=== PATIENT | female | born 1950 | race Caucasian/White ===

== ENCOUNTER 2016-09-11 15:59 | Emergency (ER) | payer MEDICARE, MEDICAID ==
[2016-03-23 07:55] VITALS: BMI 18.8
[~2016-09-11 15:59] MED LIST: ACETAMINOPHEN325 MG NG; AMARYL1 MG PO; ANTIVERT25 MG PO; ASPIRIN325 MG PO; ASPIRIN81 MG PO; BAYER CHEWABLE81 MG PO; BETAPACE 80 MG80 MG PO; BRILINTA90 MG PO; CARAFATE1 G/10 ML PO; COREG 3.1253.125 MG GT; COREG 3.1253.125 MG PO; GLIMEPIRIDE1 MG PO; GLUCOPHAGE500 MG PO; HYDROCODON-ACE1 EAC9 PO; HYDROCODONE-APA1 TAB PO; IPRAT-ALBUT 0.5-3 ML UPD; KLONOPIN0.5 MG; KLONOPIN0.5 MG PO; LIPITOR20 MG PO; LIPITOR40 MG PO; LYRICA75 MG PO; NICODERM C1 PATCH .2 TRANSDERM; NITROSTAT0.4 MG SL; NORCO 10/325 TA1 TA1 PO; NORVASC10 MG PO; PEPCID20 MG PO; PLAVIX75 MG PO; PREDNISONE20 MG PO; PRINIVIL10 MG PO; PRINIVIL20 MG PO; PROAIR HFA8.5 GM; PROAIR HFA8.5 GM INH; PROTONIX40 MG PO; SINGULAIR10 MG PO; SYMBICORT 16010.2 GM INH; VIBRAMYCIN50 MG/5 ML PO; WELCHOL3.75 GM; WELCHOL625 MG PO
[2016-09-11 16:58] LABS: BASOPHILS 0.7 % (0.0-2.0); EOSINOPHILS 2.9 % (0-7); HEMATOCRIT 37.7 % (36.0-48.0); HEMOGLOBIN 12.4 g/dL (12-16); LYMPHOCYTES 29.5 % (15-50); MCHC 32.9 g/dL (31.0-37.0); MCV 91.3 fL (80.0-100.0); MEAN PLATELET VOLUME 10.9 fL (7.4-10.4); MONOCYTES 5.2 % (2-11); NEUTROPHILS 61.7 % (40-80); PLATELET COUNT 171 10x3/uL (130-400); RBC 4.13 10x6/uL (4.00-5.40); RDW 12.1 % (11.5-14.5); WBC 5.6 10x3/uL (4.8-10.8)
[2016-09-11 17:29] LABS: ALBUMIN 3.9 g/dL (3.4-5.0); ANION GAP 14.3 mmol/L (8-16); BILIRUBIN - TOTAL 0.47 mg/dL (0.2-1.3); CALCIUM 9.3 mg/dL (8.5-10.1); CARBON DIOXIDE 29.1 mmol/L (21.0-32.0); CREATININE - SERUM 1.4 mg/dL (0.6-1.3); POTASSIUM - SERUM 4.4 mmol/L (3.5-5.1); PROTEIN - SERUM 6.3 g/dL (6.4-8.2)
== END 2016-09-11 19:10 | disposition home or self-care (01) ==
LOC: D.ER 15:59
PROVIDERS: Physician Assistant Medical
DX: R51 Headache (principal); I25.10 Atherosclerotic heart disease of native coronary artery without angina pectoris; J44.9 Chronic obstructive pulmonary disease, unspecified; Z86.73 Personal history of transient ischemic attack (TIA), and cerebral infarction without residual deficits

== ENCOUNTER 2016-12-14 10:05 | Outpatient (CLI) | payer MEDICARE, MEDICAID ==
[~2016-12-14] VITALS: Ht 165.1 cm; Wt 58.6 kg
--- NOTE | ~2016-12-14 | HEMODYNAMI ---
PATIENT:DAMEON JAIME MEDICAL RECORD: [id number] : 52 LOCATION:[facility] ADMISSION DATE: 12/14/16 Generatedon:12/14/201614:57 Patient name: DAMEON JAIME Patient #: [id number] SSN: D OB: 1950 Date of study: 12/14/2016 Page: Of Hemodynamic Procedure Report Patient Data Patient Demographics Procedure consent was obtained First Name: DAMEON Gender: Female Last Name: YENI : 1950 [facility] Initial: J Age: 66 year(s) Patient #: [id number] Race: Additional ID: [id number] Contact details Address: [address] [place] [address] [facility] State: [place] City: [place] Zip code: [address] Past Medical History Allergies Allergen Reaction Date Comments Reported Other allergy 04/05/2015 penicillins Penicillins 12/14/2016 Admission Admission Data Admission Date: 12/14/2016 Admission Time: 10:05 Height (in.): 65 BSA: 1.64 (m2) Height (cm.): 165.1 BMI: 21.47 (kg/m2) Weight (lbs.): 129 Weight (kg.): 58.51 Lab Results Lab Result Date: 12/14/2016 Lab Result Time: 0:00 Biochemistry Name Units Result Min Max Creatinine mg/dl 1.4 --(----)*- 0.6 1.3 CBC Name Units Result Min Max Hemoglobin g/dl 12.3 *-(----)-- 13.5 17.5 Procedure Procedure Types Cath Procedure Diagnostic Procedure [facility] w/Coronaries PCI Procedure Coronary Stent Initial Miscellaneous Procedures Moderate Sedation up to 30 minutes Procedure Description Procedure Date Procedure Date: 12/14/2016 Procedure Start Time: 14:43 Procedure End Time: 14:57 Procedure Staff Name Function Brendon Durbin MD Performing Physician Taurus Hussein RT Scrub Elvin Toney RT Scrub Benny Youssef RN Nurse Haley Ambriz RT Monitor Procedure Data Cath Procedure Fluoroscopy Diagnostic fluoroscopy Total fluoroscopy Time: 2.2 time: 2.2 min min Diagnostic fluoroscopy Total fluoroscopy dose: 388 dose: 388 mGy mGy Contrast Material Contrast Material Type Amount (ml) Isovue 300 82 Entry Location Entry Primary Successful Side Size Upsize Upsize Entry Closure Succes sful Closure Location (Fr) 1 (Fr) 2 (Fr) Remarks Device Remarks Femoral Right 6 Fr Exoseal artery Short Estimated blood loss: 10 ml Diagnostic catheters Device Type Used For End Catheter Placement Cordis 5Fr Pigtail LV Angiography Catheter (MP) Cordis 5Fr JL 4.0 Left Coronary Catheter (MP) Angiography Cordis 5Fr 3DRC Catheter Right Coronary (MP) Angiography Procedure Complications No complications Procedure Medications Medication Administration Route Dosage Oxygen NC 2 l/min Heparin Flush Bag added to field 2 bags (1000units/500ml NS) 0.9% NaCl I.V. 100 ml/hr Fentanyl I.V. 50 mcg Versed I.V. 1 mg Fentanyl I.V. 50 mcg Versed I.V. 1 mg Fentanyl I.V. 50 mcg Heparin Bolus I.V. 4000 units Fentanyl I.V. 50 mcg Plavix P.O. 75 mg Hemodynamics Rest BSA: 1.64 (m2) HGB: 12.3 (g/dl) O2 Consumption: Estimated: 156.22 (ml/min) O2 Co nsumption indexed: Estimated:95.26 (ml/min/m) Heart Rate: 75 (bpm) Snapshots Pre Cath Intra NCS Post Cath Vital Signs Time Heart Resp SPO2 etCO2 [id number] NIBP (mmHg) Rhythm Pain Sedation Rate (ipm) (%) (mmHg) (mmHg) Status Level (bpm) 14:23:54 76 16 97 0 0 143/68(87) NSR 0 (11) 10(A) , No pain 14:28:49 73 18 99 0 0 170/90(138) NSR 0 (11) 10(A) , No pain 14:33:09 76 19 100 0 0 165/87(130) NSR 0 (11) 10(A) , No pain 14:37:27 73 17 99 0 0 179/88(134) NSR 0 (11) 9(A) , No pain 14:41:43 74 19 100 0 0 145/83(118) NSR 0 (11) 9(A) , No pain 14:45:55 77 18 98 0 0 150/82(118) NSR 0 (11) 9(A) , No pain 14:50:03 84 18 97 0 0 133/87(108) NSR 0 (11) 9(A) , No pain 14:54:17 86 17 98 0 0 123/74(109) NSR 0 (11) 9(A) , No pain Medications Time Medication Route Dose Verified Delivered Reason Notes Effectiveness by by 14:22:57 Oxygen NC 2 Benny Benny Per physician l/min Mikael Youssef RN RN 14:23:07 Heparin Flush added 2 Benny Benny used for Bag to bags Mikael Youssef RN procedure (1000units/500ml field RN NS) 14:23:17 0.9% NaCl I.V. 100 Benny Benny Per physician ml/hr Mikael Youssef RN RN 14:34:12 Fentanyl I.V. 50 Benny Benny for sedation mcg Mikael Youssef RN RN 14:34:20 Versed I.V. 1 mg Benny Benny for sedation Mikael Youssef RN RN 14:40:27 Fentanyl I.V. 50 Benny Benny for sedation mcg Mikael Youssef RN RN 14:40:30 Versed I.V. 1 mg Benny Benny for sedation Mikael Youssef RN RN 14:43:22 Fentanyl I.V. 50 Benny Benny for sedation mcg Mikael Youssef RN RN 14:45:16 Fentanyl I.V. 50 Benny Benny for sedation mcg Mikael Youssef RN RN 14:49:16 Heparin Bolus I.V. 4000 Benny Benny for units Mikael Youssef RN anticoagulation RN 14:56:22 Plavix P.O. 75 mg Benny Benny for Mikael Youssef RN antiplatelet RN therapy Procedure Log Time Note 14:04:42 Benny Youssef RN sent for patient. Start room use. 14:13:12 Diagnostic Cath Status : Elective 14:14:43 Time tracking: Regular hours 14:14:47 Plan of Care:Hemodynamics will remain stable., Cardiac rhythm will remain stable., Comfort level will be maintained., Respiratory function will remain adequate., Patient/ family verbilizes understanding of procedure., Procedure tolerated without complication., Recovers from procedure without complications.. 14:16:35 Patient Height : 65 cm 14:16:38 Patient Weight : 129 kg 14:16:59 Patient received from Pre/Post Procedure Room to CCL 1 Alert and oriented. Tansferred to table in Supine position. 14:17:00 Warm blankets applied, and neto hugger turned on for patient comfort. 14:17:01 Correct patient and procedure confirmed by team. 14:17:02 Signed procedure consent form obtained from patient. 14:17:03 ECG and BP/O2 sat monitors applied to patient. 14:17:04 Full Disclosure recording started 14:22:35 Vital chart was started 14:22:57 Oxygen 2 l/min NC was administered by Benny Youssef RN; Per physician; 14:23:07 Heparin Flush Bag (1000units/500ml NS) 2 bags added to field was administered by Benny Youssef RN; used for procedure; 14:23:17 0.9% NaCl 100 ml/hr I.V. was administered by Benny Youssef RN; Per physician; 14:29:28 Rhythm: sinus rhythm 14:30:05 H&P Date Dictated: 12/13/2016 Within 30 days and on chart., H&P Addendum completed by physician on day of procedure. (MUST COMPLETE FOR ALL OUTPATIENTS). 14:30:07 Pre-procedure instructions explained to patient. 14:30:07 Pre-op teaching completed and patient verbalized understanding. 14:30:09 Family in waiting room. 14:30:11 Patient NPO since Midnight. 14:30:22 Patient allergic to Penicillins 14:30:24 Is the patient allergic to Iodine/contrast media? No. 14:30:26 Is patient on blood thinner?Yes 14:30:30 ACC The patient was administered the following blood thiners within the last 24 hours: ACCAspirin, ACCPlavix 14:30:32 Patient diabetic? Yes. 14:30:34 If diabetic: On Metformin? Yes 14:30:35 If on Metformin: Last Dose? 12/14/2016 14:30:39 Previous problem with sedation/anesthesia? No ? 14:30:41 Snore? Yes 14:30:42 Sleep apnea? No 14:30:43 Deviated septum? No 14:30:44 Opens mouth fully? Yes 14:30:44 Sticks out tongue? Yes 14:30:46 Airway obstruction? No ? 14:30:47 Dentures? No ? 14:30:50 Pre procedure: right dorsailis pedis pulse 1+ Palpable, but thready & weak; easily obliterated 14:30:54 Patient pain scale 0/10 ?. 14:31:00 IV patent on arrival in right forearm with 0.9% NaCl at [facility]. 14:31:03 Lab results completed and on chart. 14:31:07 Right groin area was prepped with chlora-prep and draped in sterile fashion 14:31:08 Alarms reviewed by R. N. 14:31:09 Sharps counted by scrub and verified by R.N. 14:31:17 Use device set Femoral Dx 14:31:18 Acist Syringe opened to sterile field. 14:31:18 Bag Decanter opened to sterile field. 14:31:19 Medline Cath Pack opened to sterile field. 14:31:19 Terumo 5Fr [place] Sheath opened to sterile field. 14:31:19 [facility] 260cm J .035 wire opened to sterile field. 14:31:21 Acist Hand Control opened to sterile field. 14:31:21 Acist Manifold opened to sterile field. 14:31:22 Diagnostic Infinity 5Fr Multipack catheter opened to sterile field. 14:31:23 Tegaderm 4 x 4 opened to sterile field. 14:34:03 Final Timeout: patient, procedure, and site verified with staff and physician. All members of the team are in agreement. 14:34:05 Right groin site verified by team. 14:34:08 Physical assessment completed. ASA score P 2 - A patient with mild systemic disease as per Brendon Durbin MD. 14:34:10 Sedation plan: IV Moderate Sedation Versed, Fentanyl 14:34:12 Fentanyl 50 mcg I.V. was administered by Benny Youssef RN; for sedation; 14:34:20 Versed 1 mg I.V. was administered by Benny Youssef RN; for sedation; 14:38:34 Zero performed for pressure channel P1 14:39:27 Lab Result : Hemoglobin 12.3 g/dl 14:39:27 Lab Result : Creatinine 1.4 mg/dl 14:39:41 Baseline sample Acquired. 14:40:27 Fentanyl 50 mcg I.V. was administered by Benny Youssef RN; for sedation; 14:40:30 Versed 1 mg I.V. was administered by Benny Youssef RN; for sedation; 14:43:22 Procedure started. 14:43:22 Fentanyl 50 mcg I.V. was administered by Benny Youssef RN; for sedation; 14:43:27 Local anesthetic to right femoral artery with Lidocaine 2% by Brendon Durbin MD.INITIAL ACCESS ONLY 14:44:10 A 6 Fr Short sheath was inserted into the Right Femoral artery 14:44:24 A Cordis 5Fr Pigtail Catheter (MP) was advanced over the wire and used for LV Angiography. 14:44:50 LV gram done using SHIPMAN 14:44:53 Injector settings: Ml/sec: 10, Volume: 20, 14:45:01 EF : 60 % 14:45:16 Fentanyl 50 mcg I.V. was administered by Benny Youssef RN; for sedation; 14:45:16 A Cordis 5Fr JL 4.0 Catheter (MP) was advanced over the wire and used for Left Coronary Angiography. 14:46:43 Catheter removed. 14:46:48 A Cordis 5Fr 3DRC Catheter (MP) was advanced over the wire and used for Right Coronary Angiography. 14:47:01 Puente Whisper J 300cm 0.014 guide wire opened to sterile field. 14:47:02 [employer] BasixCompak Inflation Kit opened to sterile field. 14:47:59 Catheter removed. 14:48:08 Cordis 6FR XBLAD 3.5 guide catheter opened to sterile field. 14:48:36 6 Fr XBLAD 3.5 guide catheter was inserted over the wire 14:49:16 Heparin Bolus 4000 units I.V. was administered by Benny Youssef RN; for anticoagulation; 14:50:53 Inflation Number: 1 A Medtronic Resolute 3.0 X 12 stent was prepped and advanced across the Prox LAD. The stent was deployed at 13 HALEY for 0:09 (min:sec). 14:51:04 Inflation number: 2 The stent balloon was then re-inflated across the Prox LAD to 13 HALEY for 0:06 (min:sec). 14:51:31 Stent catheter was removed intact over wire. 14:51:32 Wire removed. 14:51:32 Guide catheter removed. 14:51:39 Sheath removed intact; hemostasis achieved with Exoseal to the Right Femoral artery. 14:51:45 Cordis 6Fr Exoseal opened to sterile field. 14:51:47 Procedure ended.(Physican Out) 14:52:20 Fluoroscopy time 02.20 minutes. 14:52:24 Fluoroscopy dose: 388 mGy 14:52:24 Flurop Dose total: 388 14:52:28 Contrast amount:Isovue 300 82ml. 14:52:29 Sharps counted by scrub and verified by R.N. 14:52:30 Insertion/operative site no bleeding no hematoma. 14:52:35 Post-op/insertion site Right Femoral artery dressed using a 4 x 4 and Tegaderm. 14:52:38 Post right femoral artery:stable, clean and dry 14:52:40 Post Procedure Pulses reassessed and unchanged 14:52:42 Post-procedure physical assessment completed. ASA score P 2 - A patient with mild systemic disease as per Brendon Durbin MD. 14:52:46 Post procedure rhythm: unchanged. 14:52:48 Estimated blood loss: 10 ml 14:52:50 Post procedure instruction explained to patient.Patient verbalizes understanding. 14:52:50 Patient needs reinforcement of post procedure teaching. 14:53:11 Procedure type changed to Cath procedure, Diagnostic procedure, LHC, LHC w/Coronaries, PCI procedure, Coronary Stent Initial, Miscellaneous Procedures, Moderate Sedation up to 30 minutes 14:53:17 Procedure Complication : No complications 14:53:20 See physician's report for complete and final results. 14:56:11 Procedure and supply charges have been captured, reviewed, submitted and are correct. 14:56:22 Plavix 75 mg P.O. was administered by Benny Youssef RN; for antiplatelet therapy; 14:57:04 Vital chart was stopped 14:57:06 Report given to Pre/Post Procedure Room. 14:57:09 Patient transfered to Pre/Post Procedure Room with Stretcher. 14:57:18 Procedure ended. 14:57:18 Full Disclosure recording stopped 14:57:21 End room use (Document Last) Intervention Summary Intervention Notes Time ActionType Lesion and Equipment Action# Pressure Duration Attributes Used 14:50:53 Place stent Prox LAD Medtronic 1 13 00:09 Resolute 3.0 X 12 stent 14:51:04 Reinflate Prox LAD Medtronic 2 13 00:07 stent Resolute balloon 3.0 X 12 stent Device Usage Item Name Manufacture Quantity Catalog Hospital Part Current Minimal Lot# / Number Charge Number Stock Stock Serial# Code Acist Acist 1 87299 [id number] 257776 361506 20 Syringe Medical Systems Inc Bag Microtek 1 2002S 232901 42469 448448 5 Decanter [employer] Inc. Medline Cardinal 1 [id number] 593596 74352 543514 5 Cath Pack Health Terumo 5Fr Terumo 1 [id number] 113827 839816 011889 [address] [place] [address] [facility] 1 201990 513485 097537 444682 30 260cm J .035 wire Acist Hand Acist 1 21495 919409 217686 250572 5 Control Medical Systems Inc Acist Acist 1 58065 773467 737031 767917 5 Manifold Medical Systems Inc Diagnostic Cardinal 1 [id number] 054502 17809 161623 30 Haivisionity Health 5Fr Multipack catheter Tegaderm 4 3M 1 1626W 293774 723996 679878 5 x 4 Cordis 5Fr Cardinal 1 092484 5 Pigtail Health Catheter (MP) Cordis 5Fr Cardinal 1 557846 5 JL 4.0 Health Catheter (MP) Cordis 5Fr Cardinal 1 967681 5 3DRC Health Catheter (MP) [place] 1 [id number] 078304 086435 760504 5 Whisper J Vascular 300cm 0.014 guide wire Merit Merit 1 AA3943 051456 733683 922541 15 [facility] Medical Inflation Kit Cordis 6FR Cardinal 1 [id number] 038753 019981 673108 10 XBLAD 3.5 Health guide catheter Medtronic Medtronic 1 [id number] 802279 750657 6 [id number] Resolute 3.0 X 12 stent Cordis 6Fr Cardinal 1 EX600 991934 779272 989669 10 [employer]Point Global Signature Audit [place] Stage Time Signature Unsigned Intra-Procedure 12/14/2016 Haley 2:57:31 PM Counts RT(R) Signatures Monitor : Haley Signature : Counts RT Date : Time : [facility] [address] [place] [address]
--- NOTE | ~2016-12-14 | OP ---
PATIENT NAME: DAMEON JAIME MEDICAL RECORD: [id number] :52 LOCATION:D.CAT ADMISSION DATE: SURGEON: ANGEL DO MD DATE OF OPERATION: 12/14/2016 PROCEDURES: 1. PTCA stent LAD. 2. Left heart catheterization. 3. Selective coronary angiography. 4. Left ventriculogram. INDICATION: Angina and coronary artery disease. PROCEDURE: After informed consent was obtained and after detailed explanation of risks, benefits as well as alternative therapies, the patient elected to proceed with angiogram and angioplasty. The right femoral area was prepped and draped in normal sterile fashion. The right femoral artery was cannulated via modified Seldinger technique with placement of 6-[place] sheath. All catheters exchanged through this sheath. FINDINGS: The left ventriculogram was performed in standard 30-degree SHIPMAN view, reveals good cardiac wall motion throughout all segments. Overall ejection fraction estimated at 60%. SELECTIVE CORONARY ANGIOGRAPHY: 1. Left main is with no significant angiographic disease. 2. Left anterior descending has previously placed stents, these are widely patent. However, there is a new 70-80% stenosis proximal to the previously placed stents. 3. Left circumflex has previously placed stents, these are widely patent with no significant restenosis. 4. Right coronary has previously placed stents, these are widely patent with no significant restenosis. PTCA STENT OF THE LAD: The stent used is a 3.0 x 12 mm Resolute. Result was 0% residual stenosis. OVERALL IMPRESSION: Successful percutaneous transluminal coronary angioplasty stent of the left anterior descending going from 70-80% initial stenosis to 0% residual stenosis. TRANSINT:[id number] Voice Confirmation ID: [id number] DOCUMENT ID: [id number] ANGEL DO MD CC: [id number] DICTATION DATE: 12/14/16 1456 KITCHEN FOOD ASSEMBLER: 12/14/16 2321 DEP CLI 12/14/16 [address] [place] [address]
[2016-12-14 11:32] VITALS: Ht 165.1 cm; Wt 58.6 kg
[2016-12-14 11:36] LABS: BASOPHILS 0.7 % (0-2); EOSINOPHILS 4.3 % (0-7); HEMATOCRIT 36.3 % (36.0-48.0); HEMOGLOBIN 12.3 g/dL (12-16); IMMATURE GRANULOCYTES 0.2 % (0-5); LYMPHOCYTES 36.6 % (15-50); MCH 30.9 pg (26.0-34.0); MCHC 33.9 g/dL (31.0-37.0); MCV 91.2 fL (80.0-100.0); MEAN PLATELET VOLUME 11.4 fL (7.4-10.4); MONOCYTES 7.9 % (2-11); NEUTROPHILS 50.3 % (40-80); PLATELET COUNT 151 10x3/uL (130-400); RBC 3.98 10x6/uL (4.00-5.40); RDW 12.7 % (11.5-14.5); WBC 4.5 10x3/uL (4.8-10.8)
[2016-12-14] MEDS ORDERED: PROTONIX40 MG PO (11:47)
[2016-12-14] MEDS ORDERED: PROPAFENONE HC150 MG PO (11:52)
[2016-12-14] MEDS ORDERED: MOBIC7.5 MG PO (11:52)
[2016-12-14 12:10] LABS: ANION GAP 11.7 mmol/L (8-16); CALCIUM 9.2 mg/dL (8.5-10.1); CARBON DIOXIDE 27.8 mmol/L (21.0-32.0); CREATININE - SERUM 1.4 mg/dL (0.6-1.3); POTASSIUM - SERUM 4.5 mmol/L (3.5-5.1)
--- NOTE | 2016-12-14 15:30 | NUR ---
RIGHT GROIN CDI, NO HEMATOMA OR BLEEDING NOTED, SOFT TO TOUCH
--- NOTE | 2016-12-14 16:00 | NUR ---
NO CHANGE IN RIGHT GROIN
--- NOTE | 2016-12-14 18:50 | NUR ---
IV D'C WITH CATH TIP INTACT, WRITTEN AND VERBAL INSTRUCTIONS GIVEN TO PT. RIGHT GROIN - CDI, NO HEMATOMA OR BLEEDING. AWAITING FRIEND FOR RIDE HOME. DENIES PAIN.
== END 2016-12-14 19:05 | disposition home or self-care (01) ==
LOC: D.CATH 10:05
PROVIDERS: Internal Medicine Interventional Cardiology
DX: I25.119 Atherosclerotic heart disease of native coronary artery with unspecified angina pectoris (principal); I48.0 Paroxysmal atrial fibrillation; I10 Essential (primary) hypertension; Z01.812 Encounter for preprocedural laboratory examination
CPT/HCPCS: 93458; C9600

== ENCOUNTER 2017-06-08 20:03 | Emergency (ER) | payer MEDICARE, MEDICAID ==
[2016-12-14 11:32] VITALS: BMI 21.5
[~2017-06-08 20:03] MED LIST changes: +MOBIC7.5 MG PO; +PROPAFENONE HC150 MG PO
[2017-06-08 21:04] LABS: BASOPHILS 0.8 % (0-2); EOSINOPHILS 3.2 % (0-7); HEMATOCRIT 36.5 % (36.0-48.0); HEMOGLOBIN 12.2 g/dL (12-16); IMMATURE GRANULOCYTES 0.2 % (0-5); LYMPHOCYTES 32.5 % (15-50); MCHC 33.4 g/dL (31.0-37.0); MCV 92.9 fL (80.0-100.0); MEAN PLATELET VOLUME 10.9 fL (7.4-10.4); MONOCYTES 7.4 % (2-11); NEUTROPHILS 55.9 % (40-80); PLATELET COUNT 221 10x3/uL (130-400); RBC 3.93 10x6/uL (4.00-5.40); RDW 12.6 % (11.5-14.5); WBC 5.3 10x3/uL (4.8-10.8)
[2017-06-08 21:11] LABS: INR 1.09 (0.85-1.17)
[2017-06-08 21:19] LABS: ALBUMIN 3.9 g/dL (3.4-5.0); ALKALINE PHOSPHATASE 48 U/L (46-116); ALT (SGPT) 25 U/L (10-68); BILIRUBIN - TOTAL 0.33 mg/dL (0.2-1.3); CALC OSMOLALITY 287 mosm/kg (275-300); CALCIUM 9.2 mg/dL (8.5-10.1); CARBON DIOXIDE 28.7 mmol/L (21.0-32.0); CHLORIDE - SERUM 106 mmol/L (98-107); CREATININE - SERUM 1.7 mg/dL (0.6-1.3); GLUCOSE 118 mg/dL (74-106); POTASSIUM - SERUM 5.4 mmol/L (3.5-5.1); PROTEIN - SERUM 6.7 g/dL (6.4-8.2); SODIUM 142 mmol/L (136-145); UREA NITROGEN 25 mg/dL (7-18); eGFR NON AFRICAN AMERICAN 32 mL/min (90-120)
[2017-06-08 21:21] LABS: TROPONIN-I < 0.017 ng/mL (0.000-0.060)
[2017-06-08 22:32] LABS: UDS - AMPHET NEGATIVE QUAL (NEGATIVE); UDS - BARB NEGATIVE QUAL (NEGATIVE); UDS - BENZO NEGATIVE QUAL (NEGATIVE); UDS - COCAINE NEGATIVE QUAL (NEGATIVE); UDS - OPIATE NEGATIVE QUAL (NEGATIVE); UDS - PCP NEGATIVE QUAL (NEGATIVE); UDS - THC NEGATIVE QUAL (NEGATIVE)
[2017-06-08 23:02] LABS: APPEARANCE CLEAR (CLEAR); BILIRUBIN NEGATIVE (NEGATIVE); COLOR YELLOW (YELLOW); GLUCOSE NEGATIVE (NEGATIVE); KETONE NEGATIVE (NEGATIVE); NITRITE NEGATIVE (NEGATIVE); PROTEIN NEGATIVE (NEGATIVE); UROBILINOGEN NORMAL (NORMAL)
== END 2017-06-08 23:52 | disposition home or self-care (01) ==
LOC: D.ER 20:03
PROVIDERS: Nurse Practitioner Family
DX: R42 Dizziness and giddiness (principal); G62.9 Polyneuropathy, unspecified; E11.9 Type 2 diabetes mellitus without complications; J44.9 Chronic obstructive pulmonary disease, unspecified; Z86.73 Personal history of transient ischemic attack (TIA), and cerebral infarction without residual deficits

== ENCOUNTER 2017-09-24 09:00 | Outpatient (CLI) | payer MEDICARE, MEDICAID ==
[~2017-09-24] VITALS: Ht 165.1 cm; Wt 56.9 kg
--- NOTE | ~2017-09-24 | DS ---
PATIENT:DAMEON JAIME :52 MEDICAL RECORD: [id number] DISCHARGE SUMMARY ADMISSION DATE: 09/24/17 DISCHARGE DATE: 09/25/17 DATE OF DISCHARGE: 09/25/2017 PROCEDURES: 1. Unstable angina. 2. Coronary artery disease. 3. PTCA stent left circumflex and RCA this admission. HOSPITAL COURSE: Ms. Jaime presents with anginal symptomatology, found to have significant disease of the left circumflex and RCA, underwent successful PTCA stent of above territories, had an uneventful postop course. She was discharged home with the addition of aspirin and Plavix to her medical regimen. Will follow up with [facility] in 1 month. TRANSINT:[id number] Voice Confirmation ID: [id number] DOCUMENT ID: [id number] ANGEL DO MD at 1202 CC: [id number] DICTATION DATE: 09/25/17 1037 REGISTERED MIDWIFE: 09/25/17 1320 DEP CLI 09/25/17 [id number] [place] [address]
--- NOTE | ~2017-09-24 | HEMODYNAMI ---
PATIENT:DAMEON JAIME MEDICAL RECORD: [id number] : 52 [id number] ADMISSION DATE: 09/24/17 Generatedon:09/25/201710:34 Patient name: DAMEON JAIME Patient #: [id number] SSN: [id number] : 1950 Date of study: 09/25/2017 Page: Of Hemodynamic Procedure Report Patient Data Patient Demographics Procedure consent was obtained First Name: DAMEON Gender: Female Last Name: YENI : 1950 [facility] Initial: J Age: 67 year(s) Patient #: [id number] Race: SSN: [id number] Additional ID: [id number] Contact details Address: [address] [place] [address] [facility] State: [place] City: [place] Zip code: [address] Past Medical History Allergies Allergen Reaction Date Comments Reported Other allergy 04/05/2015 penicillins Penicillins 12/14/2016 Penicillins 09/24/2017 Admission Admission Data Admission Date: 09/24/2017 Admission Time: 9:00 Arrival Date: 09/17/2017 Arrival Time: 9:30 Admit Source: Other Insurance Payor: Medicare Room #: D.2114 Height (in.): 64 BSA: 1.6 (m2) Height (cm.): 162.56 BMI: 21.28 (kg/m2) Weight (lbs.): 124 Weight (kg.): 56.25 Procedure Procedure Types Cath Procedure PCI Procedure Coronary Stent Coronary Stent Initial Procedure Description Procedure Date Procedure Date: 09/25/2017 Procedure Start Time: 10:22 Procedure End Time: 10:32 Procedure Staff Name Function Brendon Durbin MD Performing Physician Leyda Canales RT Monitor Bernard Hyde RN Nurse Anali Gaspar RT Scrub Procedure Data Cath Procedure Fluoroscopy Diagnostic fluoroscopy Total fluoroscopy Time: 3.3 time: 3.3 min min Diagnostic fluoroscopy Total fluoroscopy dose: 186 dose: 186 mGy mGy Contrast Material Contrast Material Type Amount (ml) Isovue 300 46 Entry Location Entry Primary Successful Side Size Upsize Upsize Entry Closure Succes sful Closure Location (Fr) 1 (Fr) 2 (Fr) Remarks Device Remarks Femoral Left 6 Fr Exoseal artery Short Estimated blood loss: 10 ml Procedure Complications No complications Procedure Medications Medication Administration Route Dosage Oxygen NC 2 l/min Lidocaine 2% added to field 20 Heparin Flush Bag added to field 2 bags (1000units/500ml NS) 0.9% NaCl I.V. 100 ml/hr Versed I.V. 1 mg Fentanyl I.V. 50 mcg Versed I.V. 1 mg Fentanyl I.V. 50 mcg Heparin Bolus I.V. 4000 units Versed I.V. 1 mg Fentanyl I.V. 50 mcg Hemodynamics Rest BSA: 1.6 (m2) O2 Consumption: Estimated: 165.62 (ml/min) O2 Consumption indexed: Estimated:103.51 (ml/min/m) Heart Rate: 97 (bpm) Snapshots Pre Cath Intra NCS Post Cath Vital Signs Time Heart Resp SPO2 etCO2 NIBP (mmHg) Rhythm Pain Sedation Rate (ipm) (%) (mmHg) Status Level (bpm) 10:06:36 72 17 99 0 121/65(80) NSR 0 (11) 10(A) , No pain 10:10:42 70 18 95 48.3 115/78(102) NSR 0 (11) 10(A) , No pain 10:15:45 70 16 100 22.6 110/76(104) NSR 0 (11) 10(A) , No pain 10:20:42 70 15 99 30.2 108/79(101) NSR 0 (11) 9(A) , No pain 10:24:48 77 15 94 0 111/65(92) NSR 0 (11) 9(A) , No pain 10:28:54 84 14 95 30.2 108/64(89) NSR 0 (11) 9(A) , No pain 10:33:42 80 15 99 35.4 94/61(83) NSR 0 (11) 10(A) , No pain Medications Time Medication Route Dose Verified Delivered Reason Notes Effectiveness by by 10:09:00 Oxygen NC 2 Brendon Wagner used for l/min 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 100 Brendonesteban Wagner Per physician ml/hr Gifty Hyde RN 10:17:45 Versed I.V. 1 mg Brendon Buffie for sedation Gifty Hyde RN 10:17:52 Fentanyl I.V. 50 Brendon Buffie for sedation mcg Gifty Hyde RN 10:21:14 Versed I.V. 1 mg Brendon Buffie for sedation Gifty Hyde RN 10:21:17 Fentanyl I.V. 50 Brendon Cappsie for sedation mcg Gitfy Hyde RN 10:24:28 Heparin Bolus I.V. 4000 Brendon Cappsie for verifi ed units Gifty Hyde RN anticoagulation with dr durbin 10:26:37 Versed I.V. 1 mg Brendon Buffie for sedation Gifty Hyde RN 10:26:40 Fentanyl I.V. 50 Brendon Buffie for sedation mcg Gifty Hyde RN Procedure Log Time Note 9:45:31 Patient Height : 64 inches 9:45:31 Patient Weight : 124 lbs 9:45:40 Admit Source: Other 9:45:43 Diagnostic Cath status Elective 9:45:45 Bernard Hyde RN sent for patient. Start room use. 9:45:46 Time tracking: Regular hours 9:45:51 Plan of Care:Hemodynamics will remain stable., Cardiac rhythm will remain stable., Comfort level will be maintained., Respiratory function will remain adequate., Patient/ family verbilizes understanding of procedure., Procedure tolerated without complication., Recovers from procedure without complications.. 9:55:38 Patient received from Med II to CCL 2 Alert and oriented. Tansferred to table in Supine position. 9:55:40 Warm blankets applied, and neto hugger turned on for patient comfort. 9:55:40 Correct patient and procedure confirmed by team. 9:55:42 Signed procedure consent form obtained from patient. 9:55:43 ECG and BP/O2 sat monitors applied to patient. 9:55:50 H&P Date Dictated: 09/24/2017 Within 30 days and on chart.. 9:55:51 Pre-procedure instructions explained to patient. 9:55:57 Is the patient allergic to Iodine/contrast media? No. 9:55:59 Was the patient premedicated? Yes 9:56:01 Is patient on blood thinner?Yes 9:56:05 ACC The patient was administered the following blood thiners within the last 24 hours: ACCPlavix 9:56:13 Patient diabetic? No. 9:56:18 Snore? Yes 9:56:20 Sleep apnea? No 9:56:31 Dentures? No ? 10:05:13 Vital chart was started 10:05:14 Baseline sample Acquired. 10:05:19 Rhythm: sinus rhythm 10:05:21 Full Disclosure recording started 10:05:26 Family in waiting room. 10:05:28 Patient NPO since Midnight. 10:05:36 Patient pain scale 0/10 ?. 10:05:41 IV patent on arrival in left forearm with 0.9% NaCl at [facility]. 10:05:49 Lab results completed and on chart. 10:05:55 Left groin area was prepped with chlora-prep and draped in sterile fashion 10:05:56 Alarms reviewed by R. N. 10:05:57 Sharps counted by scrub and verified by R.N. 10:09:00 Oxygen 2 l/min NC was administered by Bernard Hyde RN; used for procedure; 10:09:06 Lidocaine 2% 20ml vial added to field was administered by Brendon Durbin MD; for local anesthetic; 10:09:12 Heparin Flush Bag (1000units/500ml NS) 2 bags added to field was administered by Brendon Durbin MD; used for procedure; 10:09:20 0.9% NaCl 100 ml/hr I.V. was administered by Bernard Hyde RN; Per physician; 10:16:25 Zero performed for pressure channel P1 10:16:43 Physician paged 10:16:44 Physician arrived 10:16:46 --------ALL STOP TIME OUT------ 10:16:47 Final Timeout: patient, procedure, and site verified with staff and physician. All members of the team are in agreement. 10:16:50 Left groin site verified by team. 10:16:53 Physical assessment completed. ASA score P 2 - A patient with mild systemic disease as per Brendon Durbin MD. 10:16:58 Sedation plan: IV Moderate Sedation Medication:Versed, Fentanyl 10:17:45 Versed 1 mg I.V. was administered by Bernard Hyde RN; for sedation; 10:17:52 Fentanyl 50 mcg I.V. was administered by Bernard Hyde RN; for sedation; 10:21:14 Versed 1 mg I.V. was administered by Bernard Hyde RN; for sedation; 10:21:17 Fentanyl 50 mcg I.V. was administered by Bernard Hyde RN; for sedation; 10:22:04 Procedure started. 10:22:14 Local anesthetic to left femerol artery with Lidocaine 2% by Brendon Durbin MD.INITIAL ACCESS ONLY 10:22:27 A 6 Fr Short sheath was inserted into the Left Femoral artery 10:23:17 6 Fr AR1 guide catheter was inserted over the wire 10:24:15 Use device set Femoral Dx 10:24:17 GUIDE 6FR AR 1.0 catheter ([id number]) opened to sterile field. 10:24:18 INFLATOR Merit BasixCompak ([id number]) opened to sterile field. 10:24:19 CHOICE PT Extra Support 182cm wire ([id number]) opened to sterile field. 10:24:20 SHEATH 6FR [place] (PHL487) opened to sterile field. 10:24:20 ACIST Syringe (03528) opened to sterile field. 10:24:21 Bag Decanter (2002S) opened to sterile field. 10:24:22 Medline Cath Pack ([id number]) opened to sterile field. 10:24:24 DIAGNOSTIC WIRE .035 260cm J wire (250473) opened to sterile field. 10:24:25 ACIST Hand Control (61554) opened to sterile field. 10:24:26 ACIST Manifold (90442) opened to sterile field. 10:24:27 DIAGNOSTIC Multipack 5Fr catheter set ([id number]) opened to sterile field. 10:24:28 Heparin Bolus 4000 units I.V. was administered by Bernard Hyde RN; for anticoagulation; verified with dr durbin 10:24:28 Tegaderm 4 x 4 (1626W) opened to sterile field. 10:24:31 PERCUTANEOUS ENTRY 19GA needle opened to sterile field. 10:24:46 Choice extra wire advanced. 10:24:49 Wire advanced across lesion. 10:26:37 Versed 1 mg I.V. was administered by Bernard Hyde RN; for sedation; 10::40 Fentanyl 50 mcg I.V. was administered by Bernard Hyde RN; for sedation; 10::33 Inflation Number: 1 A JOSE ANTONIO RX 2.5 x 08 stent ([id number]) was prepped and advanced across the Dist RCA. The stent was deployed at 13 HALEY for 0:10 (min:sec). 10::44 Wire removed. 10::44 Guide catheter removed. 10:28:53 EXOSEAL 6Fr (EX600) opened to sterile field. 10:30:21 Sheath removed intact; hemostasis achieved with Exoseal to the Left Femoral artery. 10:30:24 Procedure ended.(Physican Out) 10:30:35 Fluoroscopy time 03.30 minutes. 10:30:39 Fluoroscopy dose: 186 mGy 10:30:39 Flurop Dose total: 186 10:30:49 Contrast amount:Isovue 300 46ml. 10:30:50 Sharps counted by scrub and verified by R.N. 10:30:51 Insertion/operative site no bleeding no hematoma. 10:30:55 Post-op/insertion site Left Femoral artery dressed using a 4 x 4 and Tegaderm. 10:30:57 Post Procedure Pulses reassessed and unchanged 10:31:01 Post-procedure physical assessment completed. ASA score P 2 - A patient with mild systemic disease as per Brendon Durbin MD. 10:31:04 Post procedure rhythm: unchanged. 10:31:07 Estimated blood loss: 10 ml 10:31:08 Post procedure instruction explained to patient.Patient verbalizes understanding. 10:31:16 Procedure type changed to Cath procedure, PCI procedure, Coronary Stent, Coronary Stent Initial 10::18 Procedure and supply charges have been captured, reviewed, submitted and are correct. 10:31:36 Procedure Complication : No complications 10::39 Vital chart was stopped 10::40 See physician's report for complete and final results. 10:31:41 Report given to Pre/Post Procedure Room. 10:32:18 Patient transfered to Pre/Post Procedure Room with Stretcher. 10:32:20 Procedure ended. 10:32:20 Full Disclosure recording stopped 10:32:24 End room use (Document Last) Intervention Summary Intervention Notes Time ActionType Lesion and Equipment Used Action# Pressure Duration Attributes 10:28:33 Place stent Dist RCA JOSE ANTONIO RX 2.5 x 1 13 00:10 08 stent ([id number]) Device Usage Item Name Manufacture Quantity Catalog Number Hospital Part Current M inimal Lot# / Charge Number Stock Stock Serial# Code GUIDE 6FR AR Medtronic 1 [id number] 82768 282987 1 1.0 catheter ([id number]) INFLATOR Merit Merit 1 AT8601 073073 981950 588451 1 5 PURE H20 B[employer] (RR8657) CHOICE PT [place] 1 [id number] 649437 195035 843332 5 Extra Support Scientific 182cm wire ([id number]) SHEATH 6FR Terumo 1 [id number] 263376 335719 935849 4 0 [place] (SKQ744) ACIST Syringe Acist 1 97949 673024 117303 221534 2 0 (85381) Medical Systems Inc Bag Decanter Microtek 1 2001S 675261 57464 329128 5 (2002S) Medical Inc. Medline Cath Cardinal 1 [id number] 666179 58367 004275 5 Pack Health ([id number]) DIAGNOSTIC [place] 1 511407 247685 678557 620959 3 0 WIRE .035 260cm J wire (050874) ACIST Hand Acist 1 27589 028742 151716 639572 5 Control Medical (74394) Systems Inc ACIST Manifold Acist 1 12480 825731 029989 031476 5 (09065) Medical Systems Inc DIAGNOSTIC Cardinal 1 ST1400 591138 64351 276045 3 0 Multipack 5Fr Health catheter set (ME6689) Tegaderm 4 x 4 3M 1 1626W 497631 877123 988471 5 (1626W) PERCUTANEOUS Cook Medical 1 B09013 973967 620949 5 ENTRY 19GA needle JOSE ANTONIO RX 2.5 x Medtronic 1 [id number] 825555 7628644 817743 5 [id number] 08 stent ([id number]) EXOSEAL 6Fr Cardinal 1 EX600 146761 426838 356783 1 0 (EX600) Health Signature Audit [place] Stage Time Signature Unsigned Intra-Procedure 09/25/2017 Leyda Canales 10:34:52 AM RT(R) Signatures Monitor : Leyda Canales Signature : RT Date : Time : [address]
--- NOTE | ~2017-09-24 | HEMODYNAMI ---
PATIENT:DAMEON JAIME MEDICAL RECORD: [id number] : 52 LOCATION:DTEGAN ADMISSION DATE: 09/24/17 Generatedon:09/24/201711:31 Patient name: DAMEON JAIME Patient #: [id number] SSN: [id number] : 1950 Date of study: 09/24/2017 Page: Of Hemodynamic Procedure Report Patient Data Patient Demographics Procedure consent was obtained First Name: DAMEON Gender: Female Last Name: YENI : 1950 [facility] Initial: Dariusz Age: 67 year(s) Patient #: [id number] Race: SSN: [id number] Additional ID: [id number] Contact details Address: [address] [place] [address] [facility] State: [place] City: [place] Zip code: [address] Past Medical History Allergies Allergen Reaction Date Comments Reported Other allergy 04/05/2015 penicillins Penicillins 12/14/2016 Penicillins 09/24/2017 Admission Admission Data Admission Date: 09/24/2017 Admission Time: 9:00 Arrival Date: 09/17/2017 Arrival Time: 9:30 Admit Source: Other Insurance Payor: Medicare Height (in.): 64 BSA: 1.6 (m2) Height (cm.): 162.56 BMI: 21.28 (kg/m2) Weight (lbs.): 124 Weight (kg.): 56.25 Procedure Procedure Types Cath Procedure Diagnostic Procedure LHC LHC w/Coronaries Sedation Charges Moderate Sedation up to 15 minutes PCI Procedure Coronary Stent Coronary Stent Initial Procedure Description Procedure Date Procedure Date: 09/24/2017 Procedure Start Time: 11:15 Procedure End Time: 11:31 Procedure Staff Name Function Brendon Durbin MD Performing Physician Haley Ambriz RT Monitor Benny Youssef RN Nurse Sandy Suarez RT Scrub Procedure Data Cath Procedure Fluoroscopy Diagnostic fluoroscopy Total fluoroscopy Time: 1.9 time: 1.9 min min Diagnostic fluoroscopy Total fluoroscopy dose: 333 dose: 333 mGy mGy Contrast Material Contrast Material Type Amount (ml) Isovue 300 64 Entry Location Entry Primary Successful Side Size Upsize Upsize Entry Closure Succes sful Closure Location (Fr) 1 (Fr) 2 (Fr) Remarks Device Remarks Femoral Right 5 Fr 6 Fr Exoseal artery Short Estimated blood loss: 10 ml Diagnostic catheters Device Type Used For End Catheter Placement MULTIPACK Pigtail 5 Fr LV Angiography catheter MULTIPACK JL 4.0 5Fr Left Coronary catheter Angiography MULTIPACK 3DRC 5Fr Right Coronary catheter Angiography Procedure Complications No complications Procedure Medications Medication Administration Route Dosage Oxygen NC 2 l/min Heparin Flush Bag added to field 2 bags (1000units/500ml NS) 0.9% NaCl I.V. 100 ml/hr Fentanyl I.V. 50 mcg Versed I.V. 1 mg Fentanyl I.V. 50 mcg Versed I.V. 1 mg Fentanyl I.V. 50 mcg Heparin Bolus I.V. 4000 units Hemodynamics Rest BSA: 1.6 (m2) O2 Consumption: Estimated: 147.91 (ml/min) O2 Consumption indexed: Estimated:92.44 (ml/min/m) Heart Rate: 68 (bpm) Snapshots Pre Cath Intra NCS Post Cath Vital Signs Time Heart Resp SPO2 etCO2 NIBP (mmHg) Rhythm Pain Sedation Rate (ipm) (%) (mmHg) Status Level (bpm) 11:07:19 73 16 96 0 154/82(116) NSR 0 (11) 10(A) , No pain 11:12:00 66 16 95 0 138/72(98) NSR 0 (11) 9(A) , No pain 11:16:38 66 16 98 22.7 105/72(89) NSR 0 (11) 9(A) , No pain 11:21:12 69 16 97 39.3 102/64(87) NSR 0 (11) 9(A) , No pain 11:25:47 74 16 98 35.6 112/65(99) NSR 0 (11) 9(A) , No pain Medications Time Medication Route Dose Verified Delivered Reason Notes Effectiveness by by 11:09:11 Oxygen NC 2 Brendon Zapata Per physician l/min Gifty Youssef RN 11:09:22 Heparin Flush added 2 Brendon Zapata used for Bag to bags Gifty Youssef fish header (1000units/500ml field NS) 11:09:42 0.9% NaCl I.V. 100 Brendon Zapata Per physician ml/hr Gifty Youssef RN 11:09:57 Fentanyl I.V. 50 Brendon Zapata for sedation mcg Gifty Youssef RN 11:10:24 Versed I.V. 1 mg Brendon Zapata for sedation Gifty Youssef RN 11:13:03 Fentanyl I.V. 50 Brendon Zapata for sedation mcg Gifty Youssef RN 11:13:06 Versed I.V. 1 mg Brendon Zapata for sedation Gifty Youssef RN 11:16:28 Fentanyl I.V. 50 Brendon Zapata for sedation dejon Youssef RN 11:22:22 Heparin Bolus I.V. 4000 Brendon Zapata for units Gifty Youssef RN anticoagulation Procedure Log Time Note 10:29:07 Patient Height : 64 inches 10:29:07 Patient Weight : 124 lbs 10:41:15 Haley Counts RT(R) sent for patient. Start room use. 10:51:16 Time tracking: Regular hours 10:51:19 Plan of Care:Hemodynamics will remain stable., Cardiac rhythm will remain stable., Comfort level will be maintained., Respiratory function will remain adequate., Patient/ family verbilizes understanding of procedure., Procedure tolerated without complication., Recovers from procedure without complications.. 10:56:14 Patient received from Pre/Post Procedure Room to CCL 1 Alert and oriented. Tansferred to table in Supine position. 10:56:15 Warm blankets applied, and neto hugger turned on for patient comfort. 10:56:15 Correct patient and procedure confirmed by team. 10:56:16 Signed procedure consent form obtained from patient. 10:56:18 ECG and BP/O2 sat monitors applied to patient. 11:06:26 Vital chart was started 11:06:29 Rhythm: sinus rhythm 11:06:30 Full Disclosure recording started 11:06:39 H&P Date Dictated: 09/11/2017 Within 30 days and on chart., H&P Addendum completed by physician on day of procedure. (MUST COMPLETE FOR ALL OUTPATIENTS). 11:06:41 Pre-procedure instructions explained to patient. 11:06:41 Pre-op teaching completed and patient verbalized understanding. 11:06:42 Family in waiting room. 11:06:44 Patient NPO since Midnight. 11:06:52 Patient allergic to Penicillins 11:06:54 Is the patient allergic to Iodine/contrast media? No. 11:06:55 Is patient on blood thinner?Yes 11:06:57 Patient diabetic? No. 11:07:01 Previous problem with sedation/anesthesia? No ? 11:07:02 Snore? Yes 11:07:03 Sleep apnea? No 11:07:04 Deviated septum? No 11:07:04 Opens mouth fully? Yes 11:07:05 Sticks out tongue? Yes 11:07:07 Airway obstruction? No ? 11:07:09 Dentures? No ? 11:07:11 Pre procedure: right dorsailis pedis pulse 2+ Normal; easily identifiable; not easily obliterated 11:07:17 Patient pain scale 7/10 Lt shoulder radiating to mid chest. 11:07:39 IV patent on arrival in left hand with 0.9% NaCl at [facility]. 11:07:42 Lab results completed and on chart. 11:07:44 Right groin area was prepped with chlora-prep and draped in sterile fashion 11:07:45 Alarms reviewed by R. N. 11:07:45 Sharps counted by scrub and verified by R.N. 11:07:49 Use device set Femoral Dx 11:07:50 ACIST Syringe (55594) opened to sterile field. 11:07:51 Bag Decanter (2002S) opened to sterile field. 11:07:51 Medline Cath Pack ([id number]) opened to sterile field. 11:07:51 SHEATH 5FR [place] (EYS492) opened to sterile field. 11:07:52 DIAGNOSTIC WIRE .035 260cm J wire (167955) opened to sterile field. 11:07:53 ACIST Hand Control (30064) opened to sterile field. 11:07:53 ACIST Manifold (33150) opened to sterile field. 11:07:53 DIAGNOSTIC Multipack 5Fr catheter set ([id number]) opened to sterile field. 11:07:54 Tegaderm 4 x 4 (1626W) opened to sterile field. 11:07:55 PERCUTANEOUS ENTRY 19GA needle opened to sterile field. 11:09:11 Oxygen 2 l/min NC was administered by Benny Youssef RN; Per physician; 11:09:22 Heparin Flush Bag (1000units/500ml NS) 2 bags added to field was administered by Benny Youssef RN; used for procedure; 11::42 0.9% NaCl 100 ml/hr I.V. was administered by Benny Youssef RN; Per physician; 11:09:56 Final Timeout: patient, procedure, and site verified with staff and physician. All members of the team are in agreement. 11::57 Fentanyl 50 mcg I.V. was administered by Benny Youssef RN; for sedation; 11::58 Right groin site verified by team. 11:10:01 Physical assessment completed. ASA score P 2 - A patient with mild systemic disease as per Brendon Durbin MD. 11:10:05 Sedation plan: IV Moderate Sedation Medication:Versed, Fentanyl 11:10:24 Versed 1 mg I.V. was administered by Benny Youssef RN; for sedation; 11:12:27 Baseline sample Acquired. 11:12:58 Zero performed for pressure channel P1 11:13:03 Fentanyl 50 mcg I.V. was administered by Benny Youssef RN; for sedation; 11:13:06 Versed 1 mg I.V. was administered by Benny Youssef RN; for sedation; 11:15:40 Procedure started. 11:15:43 Local anesthetic to right femoral artery with Lidocaine 2% by Brendon Durbin MD.INITIAL ACCESS ONLY 11:16:25 A 5 Fr sheath was inserted into the Right Femoral artery 11:16:28 Fentanyl 50 mcg I.V. was administered by Benny Youssef RN; for sedation; 11:17:03 A MULTIPACK Pigtail 5 Fr catheter was advanced over the wire and used for LV Angiography. 11:17:24 Injector settings: Ml/sec: 5, Volume: 15, 11:17:27 LV gram done using SHIPMAN 11:17:32 EF : 60 % 11:17:33 Catheter removed. 11:19:26 A MULTIPACK JL 4.0 5Fr catheter was advanced over the wire and used for Left Coronary Angiography. 11:19:29 Catheter removed. 11:19:36 A MULTIPACK 3DRC 5Fr catheter was advanced over the wire and used for Right Coronary Angiography. 11:19:43 Use device set [facility] PCI 11:19:44 INFLATOR Merit BasixCompak (ER5434) opened to sterile field. 11:19:45 SHEATH 6FR [place] (XMT239) opened to sterile field. 11:19:49 CHOICE PT Extra Support 182cm wire ([id number]) opened to sterile field. 11:20:01 Catheter removed. 11:20:57 Sheath upsized to a 6 Fr Short. 11:21:38 6 Fr XBLAD 3.5 guide catheter was inserted over the wire 11:22:08 Choice PT ES wire advanced. 11:22:22 Heparin Bolus 4000 units I.V. was administered by Benny Youssef RN; for anticoagulation; 11:22:40 GUIDE 6FR XBLAD 3.5 catheter ([id number]) opened to sterile field. 11:23:22 Inflation Number: 1 A JOSE ANTONIO RX 2.25 x 15 stent ([id number]) was prepped and advanced across the Dist CX. The stent was deployed at 15 HALEY for 0:07 (min:sec). 11:23:32 Inflation number: 2 The stent balloon was then re-inflated across the Dist CX to 19 HALEY for 0:07 (min:sec). 11:23:52 Stent catheter was removed intact over wire. 11:23:53 Wire removed. 11:23:53 Guide catheter removed. 11:24:06 Sheath removed intact; hemostasis achieved with Exoseal to the Right Femoral artery. 11:24:09 Procedure ended.(Physican Out) 11:24:37 Fluoroscopy time 01.90 minutes. 11:24:51 Flurop Dose total: 333 11:24:51 Fluoroscopy dose: 333 mGy 11:24:55 Contrast amount:Isovue 300 64ml. 11:26:55 Sharps counted by scrub and verified by R.N. 11:26:57 Insertion/operative site no bleeding no hematoma. 11:26:59 Post-op/insertion site Right Femoral artery dressed using a 4 x 4 and Tegaderm. 11:27:03 Post right femoral artery:stable, clean and dry 11:27:10 Post Procedure Pulses reassessed and unchanged 11:27:14 Post-procedure physical assessment completed. ASA score P 2 - A patient with mild systemic disease as per Brendon Durbin MD. 11:27:16 Post procedure rhythm: unchanged. 11::19 Estimated blood loss: 10 ml 11:27:20 Post procedure instruction explained to patient.Patient verbalizes understanding. 11:27:20 Patient needs reinforcement of post procedure teaching. 11:27:50 Procedure type changed to Cath procedure, Diagnostic procedure, LHC, LHC w/Coronaries, Sedation Charges, Moderate Sedation up to 15 minutes, PCI procedure, Coronary Stent, Coronary Stent Initial 11:28:13 See physician's report for complete and final results. 11:28:19 Procedure Complication : No complications 11:28:30 EXOSEAL 6Fr (EX600) opened to sterile field. 11:29:28 Procedure and supply charges have been captured, reviewed, submitted and are correct. 11:29:29 Vital chart was stopped 11::31 Report given to Pre/Post Procedure Room. 11::34 Patient transfered to Pre/Post Procedure Room with Stretcher. 11:31:25 Procedure ended. 11:31:25 Full Disclosure recording stopped 11::27 End room use (Document Last) Intervention Summary Intervention Notes Time ActionType Lesion and Equipment Used Action# Pressure Duration Attributes 11:23:22 Place stent Dist CX JOSE ANTONIO RX 2.25 x 1 15 00:07 15 stent ([id number]) 11:23:32 Reinflate Dist CX JOSE ANTONIO RX 2.25 x 2 19 00:08 stent 15 stent balloon ([id number]) Device Usage Item Name Manufacture Quantity Catalog Number Hospital Part Current M inimal Lot# / Charge Number Stock Stock Serial# Code ACIST Syringe Acist 1 74090 [id number] 545554 897621 2 0 (60033) Medical Systems Inc Bag Decanter Microtek 1 776754 46807 214068 5 () Medical Inc. Medline Cath Cardinal 1 [id number] 220898 02290 584238 5 [facility] ([id number]) SHEATH 5FR Terumo 1 GBX332 389120 001003 566052 4 0 [place] (NFO857) DIAGNOSTIC [facility] 1 535881 269782 909678 070457 3 0 WIRE .035 260cm J wire (196711) ACIST Hand Acist 1 67643 756407 135548 362371 5 Control Medical (63738) Systems Inc ACIST Manifold Acist 1 33915 749858 962796 855251 5 (72614) Medical Systems Inc DIAGNOSTIC Cardinal 1 WX7144 121219 59900 500195 3 0 Multipack 5Fr Health catheter set ([id number]) Tegaderm 4 x 4 3M 1 1626W 653348 342150 671789 5 (1626W) PERCUTANEOUS Cook Medical 1 Z59867 745817 565510 5 ENTRY 19GA needle MULTIPACK Cardinal 1 697793 5 Pigtail 5 Fr Health catheter MULTIPACK JL Cardinal 1 325051 5 4.0 5Fr Health catheter MULTIPACK 3DRC Cardinal 1 366892 5 5Fr catheter Health INFLATOR Merit Merit 1 UJ2551 718840 588787 117864 1 5 [employer] (UA0001) SHEATH 6FR Terumo 1 TPA426 391913 236730 341595 4 0 [place] (GAB712) CHOICE PT Whiting 1 [id number] 611137 205461 781735 5 Extra Support Scientific 182cm wire ([id number]) GUIDE 6FR Cardinal 1 [id number] 917728 438146 630029 1 0 XBLAD 3.5 Health catheter ([id number]) JOSE ANTONIO RX 2.25 x Medtronic 1 [id number] 368842 8517815 786601 5 [id number] 15 stent ([id number]) EXOSEAL 6Fr Cardinal 1 EX600 499530 749456 296688 1 0 (EX600) Health Signature Audit [place] Stage Time Signature Unsigned Intra-Procedure 09/24/2017 Haley 11:31:36 AM Counts RT(R) Signatures Monitor : Haley Signature : Counts RT Date : Time : [facility] [address] [facility] [place] [address]
--- NOTE | ~2017-09-24 | OP ---
PATIENT NAME: DAMEON JAIME MEDICAL RECORD: [id number] :52 LOCATION:EL GriffithsCL ADMISSION DATE: SURGEON: ANGEL DO MD DATE OF OPERATION: 09/24/2017 PROCEDURES: 1. PTCA stent left circumflex. 2. Left heart catheterization. 3. Selective coronary angiography. 4. Left ventriculogram. INDICATION: Angina and coronary artery disease. PROCEDURE IN DETAIL: After informed consent was obtained and after a detailed explanation of the risks, benefits as well as alternative therapies, the patient elected to proceed with angiogram and angioplasty. The right femoral area was prepped and draped in normal sterile fashion. The right femoral artery was cannulated via modified Seldinger technique with placement of 6-Prydeinig sheath. All catheters exchanged through this sheath. FINDINGS: The left ventriculogram was performed in standard 30-degree SHIPMAN view reveals, good cardiac wall motion throughout all segments. Overall ejection fraction estimated 60%. SELECTIVE CORONARY ANGIOGRAPHY: 1. Left main is with no significant angiographic disease. 2. Left anterior descending has previously placed stents in the LAD and LAD diagonal. These are widely patent with no significant restenosis. No disease elsewise. 3. The left circumflex has previously placed stents with 85% in-stent restenosis distally. 4. The right coronary artery has previously placed stents. These are widely patent with no significant restenosis. However, there is a new 80% stenosis in the mid distal vessel. PTCA STENT OF THE LEFT CIRCUMFLEX: The stent used was a 2.25 x 15 mm [place]. The result was 0% residual stenosis. OVERALL IMPRESSION: Successful percutaneous transluminal coronary angioplasty stent of the left circumflex going from 85% initial stenosis to 0% residual. PLAN: PTCA stent of the RCA in the near future. TRANSINT:[id number] Voice Confirmation ID: [id number] DOCUMENT ID: [id number] ANGEL DO MD at 1118 CC: [id number] DICTATION DATE: 09/24/17 1129 BUNCHER HAND: 09/24/17 1139 REG [facility] [address] [place] [address]
--- NOTE | ~2017-09-24 | OP ---
PATIENT NAME: DAMEON JAIME MEDICAL RECORD: [id number] :52 LOCATION:D.CAT ADMISSION DATE: SURGEON: ANGEL DO MD DATE OF OPERATION: 09/25/2017 PROCEDURES: 1. PTCA stent RCA. 2. Selective coronary angiography. INDICATION: Angina and coronary artery disease. PROCEDURE IN DETAIL: After informed consent was obtained and after detailed explanation of risks, benefits as well as alternative therapies, the patient elected to proceed with angiogram and angioplasty. The left femoral area was prepped and draped in normal sterile fashion. Left femoral artery was cannulated via modified Seldinger technique with placement of 6-[place]izen [place] sheath. All catheters exchanged through this sheath. FINDINGS: The right coronary artery has 80% stenosis in the mid distal vessel. This was addressed with a 2.5 x 8 mm [place] stent. Result was 0% residual stenosis. OVERALL IMPRESSION: Successful percutaneous transluminal coronary angioplasty stent of the right coronary artery going from 80% initial stenosis to 0% residual. TRANSINT:[id number] Voice Confirmation ID: [id number] DOCUMENT ID: [id number] ANGEL DO MD at 1202 CC: [id number] DICTATION DATE: 09/25/17 1038 NARCOTICS AND/OR VICE DETECTIVE: 09/25/17 1112 [facility] CLI 09/25/[address] [address]
[2017-09-24 09:45] LABS: BASOPHILS 0.8 % (0-2); EOSINOPHILS 7.6 % (0-7); HEMATOCRIT 36.9 % (36.0-48.0); HEMOGLOBIN 12.1 g/dL (12-16); IMMATURE GRANULOCYTES 0.3 % (0-5); LYMPHOCYTES 27.4 % (15-50); MCH 30.9 pg (26.0-34.0); MCHC 32.8 g/dL (31.0-37.0); MCV 94.1 fL (80.0-100.0); MEAN PLATELET VOLUME 10.8 fL (7.4-10.4); MONOCYTES 7.1 % (2-11); NEUTROPHILS 56.8 % (40-80); PLATELET COUNT 205 10x3/uL (130-400); RBC 3.92 10x6/uL (4.00-5.40); RDW 12.5 % (11.5-14.5); WBC 7.6 10x3/uL (4.8-10.8)
[2017-09-24] MEDS ORDERED: ISOSORB MONO PO (09:48)
[2017-09-24] MEDS ORDERED: LIPITOR40 MG PO (09:50)
[2017-09-24 09:56] LABS: ANION GAP 11.3 mmol/L (8-16); CALCIUM 9.8 mg/dL (8.5-10.1); CARBON DIOXIDE 30.3 mmol/L (21.0-32.0); CREATININE - SERUM 1.3 mg/dL (0.6-1.3); POTASSIUM - SERUM 4.6 mmol/L (3.5-5.1)
[2017-09-24 10:01] VITALS: BP 172/86
[2017-09-24 14:42] VITALS: BP 135/63; Ht 165.1 cm; Wt 56.9 kg
[2017-09-24 21:04] VITALS: BP 124/74
[2017-09-25 01:08] VITALS: BP 123/68
[2017-09-25 05:32] VITALS: BP 130/46
[2017-09-25 07:55] VITALS: BP 107/64
== END 2017-09-25 15:00 | disposition home or self-care (01) ==
LOC: D.CATH 09:00 → D.M2 09:00 → D.CATH 11:00 → D.M2 14:15 → D.CLR 09-25 10:42 → D.CATH 09-25 15:00
PROVIDERS: Internal Medicine Interventional Cardiology
DX: I25.110 Atherosclerotic heart disease of native coronary artery with unstable angina pectoris (principal); R06.02 Shortness of breath; R07.9 Chest pain, unspecified; I10 Essential (primary) hypertension; E78.5 Hyperlipidemia, unspecified; Z01.812 Encounter for preprocedural laboratory examination
CPT/HCPCS: 93458; C9600 ×2

== ENCOUNTER 2017-10-06 16:25 | Emergency (ER) | payer MEDICARE, MEDICAID ==
[2017-09-24 14:42] VITALS: BMI 22.1
[~2017-10-06 16:25] MED LIST changes: +ISOSORB MONO PO
[2017-10-06 17:07] LABS: BASOPHILS 0.7 % (0-2); EOSINOPHILS 7.5 % (0-7); HEMATOCRIT 36.9 % (36.0-48.0); HEMOGLOBIN 12.4 g/dL (12-16); IMMATURE GRANULOCYTES 0.1 % (0-5); LYMPHOCYTES 23.5 % (15-50); MCH 31.5 pg (26.0-34.0); MCHC 33.6 g/dL (31.0-37.0); MCV 93.7 fL (80.0-100.0); MEAN PLATELET VOLUME 10.6 fL (7.4-10.4); MONOCYTES 7.1 % (2-11); NEUTROPHILS 61.1 % (40-80); RBC 3.94 10x6/uL (4.00-5.40); RDW 12.2 % (11.5-14.5); WBC 7.4 10x3/uL (4.8-10.8)
[2017-10-06 17:14] LABS: PLATELET COUNT 250 10x3/uL (130-400)
[2017-10-06 17:17] LABS: INR 1.03 (0.85-1.17); PROTIME 13.1 SECONDS (11.6-15.0)
[2017-10-06 17:19] LABS: D-DIMER-QUANTITATIVE 0.63 ug/mLFEU (0.20-0.54)
[2017-10-06 17:32] LABS: ALBUMIN 4.3 g/dL (3.4-5.0); ALKALINE PHOSPHATASE 58 U/L (46-116); ALT (SGPT) 26 U/L (10-68); BILIRUBIN - TOTAL 0.32 mg/dL (0.2-1.3); CALC OSMOLALITY 289 mosm/kg (275-300); CARBON DIOXIDE 25.6 mmol/L (21.0-32.0); CHLORIDE - SERUM 104 mmol/L (98-107); CREATININE - SERUM 1.5 mg/dL (0.6-1.3); GLUCOSE 95 mg/dL (74-106); POTASSIUM - SERUM 4.9 mmol/L (3.5-5.1); PROTEIN - SERUM 7.3 g/dL (6.4-8.2); SODIUM 141 mmol/L (136-145); UREA NITROGEN 38 mg/dL (7-18); eGFR NON AFRICAN AMERICAN 37 mL/min (90-120)
[2017-10-06 17:38] LABS: APPEARANCE HAZY (CLEAR); BILIRUBIN NEGATIVE (NEGATIVE); COLOR STRAW (YELLOW); GLUCOSE NEGATIVE (NEGATIVE); KETONE NEGATIVE (NEGATIVE); NITRITE NEGATIVE (NEGATIVE); PROTEIN NEGATIVE (NEGATIVE); UROBILINOGEN NORMAL (NORMAL)
[2017-10-06 17:38] LABS: CHOL - HDL RATIO 2.9 ratio (2.3-4.1); CHOLESTEROL, TOTAL 167 mg/dL (0-200); CKMB 1.1 U/L (0.0-3.6); CREATINE KINASE 64 UL (21-215); HDL CHOLESTEROL 57 mg/dL (32-96); LDL CHOLESTEROL 90 mg/dL (0-100); LDL-HDL RATIO 1.6 ratio (1.5-3.5); MAGNESIUM - SERUM 1.3 mg/dL (1.8-2.4); PRO BNP 122 pg/mL (0-125); TRIGLYCERIDE 100 mg/dL (30-200)
[2017-10-06 17:41] LABS: UDS - AMPHET NEGATIVE QUAL (NEGATIVE); UDS - BARB NEGATIVE QUAL (NEGATIVE); UDS - BENZO NEGATIVE QUAL (NEGATIVE); UDS - COCAINE NEGATIVE QUAL (NEGATIVE); UDS - OPIATE NEGATIVE QUAL (NEGATIVE); UDS - PCP NEGATIVE QUAL (NEGATIVE); UDS - THC NEGATIVE QUAL (NEGATIVE)
[2017-10-06 17:43] LABS: TROPONIN-I < 0.017 ng/mL (0.000-0.060)
== END 2017-10-06 21:24 | disposition home or self-care (01) ==
LOC: D.ER 16:25
PROVIDERS: Family Medicine; Nurse Practitioner Family
DX: R07.9 Chest pain, unspecified (principal); R07.89 Other chest pain; E83.42 Hypomagnesemia; J44.9 Chronic obstructive pulmonary disease, unspecified; E11.9 Type 2 diabetes mellitus without complications

== ENCOUNTER 2018-02-16 16:34 | Inpatient (IN) | payer MEDICARE, MEDICAID ==
[~2018-02-16] VITALS: Ht 160 cm; Wt 56.8 kg
--- NOTE | ~2018-02-16 | HP ---
PATIENT: DAMEON JAIME MEDICAL RECORD: [id number] ACCOUNT: [id number] LOCATION:D.MS Griffiths2200 : 52 ADMISSION DATE: 02/16/18 HISTORY AND PHYSICAL EXAMINATION HISTORY OF PRESENT ILLNESS: A 67-year-old female, presented to the Emergency Room with nausea and vomiting and diarrhea for the last 2 days, abdominal pain. PAST MEDICAL HISTORY: Heart disease. 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 CURRENT MEDICATIONS: Listed as Rythmol, Klonopin, aspirin, Plavix, Protonix, Imdur, Lipitor, carvedilol, metformin, nitroglycerin p.r.n., hydrocodone. SOCIAL HISTORY: Denies tobacco, alcohol, or recreational drug. FAMILY HISTORY: Unknown. REVIEW OF SYSTEMS: GENERAL: No known change in weight. HEENT: No cephalgia, visual changes, tinnitus, epistaxis, or dysphagia. CARDIOVASCULAR: Denies chest pain. History as above. PULMONARY: Denies hemoptysis. Denies night sweats. GASTROINTESTINAL: Denies hematemesis or hematochezia. Does admit nausea and vomiting for the past 2 days with diarrhea. MUSCULOSKELETAL: No acute changes. ENDOCRINE: Denies polyuria, polydipsia, or polyphagia. PHYSICAL EXAMINATION: VITAL SIGNS: Temperature 97.5, blood pressure 110/65, heart rate 73, respirations 18, O2 sats 98% on room air. GENERAL: Alert, oriented. Dflr-hd-jxdifuct distress secondary to above. Limited verbalization secondary to her remote CVA. HEENT: Normocephalic, atraumatic. Eyes: Pupils are equally round and reactive. Ears: Canals patent. TMs are intact. Nose: Nares patent without drainage. Throat: No erythema, no exudates. NECK: Supple. No lymphadenopathy. No JVD. HEART: Regular rate and rhythm. No S3, S4. No rub. LUNGS: Clear to auscultation bilaterally. Breathing is nonlabored. ABDOMEN: Soft. Diffuse tenderness. No rebound. No guarding. EXTREMITIES: Present times 4. NEUROLOGIC: No acute changes. LABORATORY DATA: CBC: White count 5000, hemoglobin 11.8, hematocrit 34.5, platelets 137. Chemistry shows a sodium of 143, potassium 3.6, chloride 109, bicarbonate 23.1, BUN 20, creatinine 1.3, glucose 89, albumin is 3.0. Urinalysis, straw clear. Normal UA. CT abdomen and pelvis, possible wall thickening in the descending sigmoid colon, possible incomplete distention versus colitis. No other significant abnormalities. ASSESSMENT AND PLAN: 1. Acute presumptive colitis. IV fluids, empiric antibiotics. HISTORY AND PHYSICAL [id number] DAMEON JAIME 2. Coronary artery disease. Resume home medications. 3. Hypertension. Resume home medications. Monitor. 4. Diabetes. Low-resistant sliding scale insulin. Supportive care. We will also obtain stool for C. diff with the diarrhea. TRANSINT:[id number] Voice Confirmation ID: [id number] DOCUMENT ID: [id number] ZEINAB IRVIN DO at 1012 CC: [id number] DICTATION DATE: 02/17/18 0744 BLUNGER MACHINE OPERATOR: 02/17/18 0834 ADM IN [place] [id number] [place] [id number]
[~2018-02-16 16:34] MED LIST changes: -ISOSORB MONO PO; +ISOSORBIDE MONO30 M1 PO
[2018-02-16 17:31] LABS: BASOPHILS 0.2 % (0-2); EOSINOPHILS 1.7 % (0-7); HEMATOCRIT 35.6 % (36.0-48.0); HEMOGLOBIN 12.2 g/dL (12-16); IMMATURE GRANULOCYTES 0.2 % (0-5); LYMPHOCYTES 20.5 % (15-50); MCH 31.2 pg (26.0-34.0); MCHC 34.3 g/dL (31.0-37.0); MONOCYTES 11.7 % (2-11); NEUTROPHILS 65.7 % (40-80); RBC 3.91 10x6/uL (4.00-5.40); RDW 12.4 % (11.5-14.5); WBC 5.2 10x3/uL (4.8-10.8)
[2018-02-16 17:40] LABS: PLATELET COUNT 136 10x3/uL (130-400)
[2018-02-16 17:46] VITALS: BP 110/63
[2018-02-16 17:51] LABS: ALBUMIN 3.5 g/dL (3.4-5.0); ANION GAP 13.7 mmol/L (8-16); BILIRUBIN - TOTAL 0.3 mg/dL (0.2-1.3); CALCIUM 8.7 mg/dL (8.5-10.1); CREATININE - SERUM 1.7 mg/dL (0.6-1.3); POTASSIUM - SERUM 3.7 mmol/L (3.5-5.1); PROTEIN - SERUM 6.6 g/dL (6.4-8.2)
[2018-02-16 17:56] LABS: APPEARANCE CLEAR (CLEAR); BILIRUBIN NEGATIVE (NEGATIVE); COLOR STRAW (YELLOW); GLUCOSE NEGATIVE (NEGATIVE); KETONE NEGATIVE (NEGATIVE); NITRITE NEGATIVE (NEGATIVE); PROTEIN NEGATIVE (NEGATIVE); UROBILINOGEN NORMAL (NORMAL)
[2018-02-16 17:57] LABS: BACTERIA FEW /hpf (NONE SEEN); EPITHELIAL CELLS 0-5 /hpf (0-5); WHITE CELLS - URINE 0-5 /hpf (0-5)
[2018-02-16 17:58] LABS: AMORPHOUS SEDIMENT <1+ /lpf (NONE SEEN)
[2018-02-16 18:47] LABS: AMYLASE - SERUM 14 U/L (25-115); LIPASE 132 U/L (73-393)
[2018-02-16 20:42] VITALS: BP 124/42
[2018-02-17] VITALS (7 sets, daily range): BP systolic 74–144; BP diastolic 43–77; Ht 160 cm; Wt 56.8 kg
[2018-02-17 07:03] LABS: BASOPHILS 0.4 % (0-2); EOSINOPHILS 5.4 % (0-7); HEMATOCRIT 34.5 % (36.0-48.0); HEMOGLOBIN 11.8 g/dL (12-16); IMMATURE GRANULOCYTES 0.2 % (0-5); LYMPHOCYTES 29.7 % (15-50); MCHC 34.2 g/dL (31.0-37.0); MCV 90.6 fL (80.0-100.0); MEAN PLATELET VOLUME 11.4 fL (7.4-10.4); MONOCYTES 16.3 % (2-11); PLATELET COUNT 137 10x3/uL (130-400); RBC 3.81 10x6/uL (4.00-5.40); RDW 12.4 % (11.5-14.5)
[2018-02-17 07:07] LABS: ANION GAP 14.5 mmol/L (8-16); BILIRUBIN - TOTAL 0.21 mg/dL (0.2-1.3); CALCIUM 8.1 mg/dL (8.5-10.1); CARBON DIOXIDE 23.1 mmol/L (21.0-32.0); CREATININE - SERUM 1.3 mg/dL (0.6-1.3); POTASSIUM - SERUM 3.6 mmol/L (3.5-5.1); PROTEIN - SERUM 5.6 g/dL (6.4-8.2)
[2018-02-18 00:54] VITALS: BP 97/52
[2018-02-18 04:00] VITALS: BP 116/60
[2018-02-18 05:28] LABS: BASOPHILS 0.5 % (0-2); EOSINOPHILS 4.6 % (0-7); HEMOGLOBIN 10.4 g/dL (12-16); LYMPHOCYTES 36.9 % (15-50); MCH 30.7 pg (26.0-34.0); MCHC 33.5 g/dL (31.0-37.0); MCV 91.4 fL (80.0-100.0); MEAN PLATELET VOLUME 11.1 fL (7.4-10.4); MONOCYTES 12.5 % (2-11); NEUTROPHILS 45.5 % (40-80); PLATELET COUNT 142 10x3/uL (130-400); RBC 3.39 10x6/uL (4.00-5.40); RDW 12.5 % (11.5-14.5); WBC 4.1 10x3/uL (4.8-10.8)
[2018-02-18 06:00] LABS: ALBUMIN 2.7 g/dL (3.4-5.0); ANION GAP 9.5 mmol/L (8-16); BILIRUBIN - TOTAL 0.18 mg/dL (0.2-1.3); CALCIUM 8.3 mg/dL (8.5-10.1); CARBON DIOXIDE 27.2 mmol/L (21.0-32.0); CREATININE - SERUM 1.2 mg/dL (0.6-1.3); POTASSIUM - SERUM 3.7 mmol/L (3.5-5.1); PROTEIN - SERUM 5.3 g/dL (6.4-8.2)
[2018-02-18 08:45] VITALS: BP 118/55
[2018-02-18 16:36] VITALS: BP 136/63
[2018-02-18 20:23] VITALS: BP 93/48
[2018-02-18 21:30] VITALS: BP 121/56
[2018-02-19 04:00] VITALS: BP 124/65
[2018-02-19 07:49] LABS: ALBUMIN 3.1 g/dL (3.4-5.0); ANION GAP 10.9 mmol/L (8-16); BILIRUBIN - TOTAL 0.24 mg/dL (0.2-1.3); CALCIUM 8.1 mg/dL (8.5-10.1); CARBON DIOXIDE 28.7 mmol/L (21.0-32.0); MAGNESIUM - SERUM 1.4 mg/dL (1.8-2.4); PHOSPHOROUS 2.7 mg/dL (2.5-4.9); POTASSIUM - SERUM 3.6 mmol/L (3.5-5.1); PROTEIN - SERUM 5.7 g/dL (6.4-8.2)
[2018-02-19 09:09] VITALS: BP 149/72
[2018-02-19 12:14] VITALS: BP 117/63
[2018-02-19 15:45] VITALS: BP 147/60
[2018-02-19 20:00] VITALS: BP 150/74
[2018-02-20] VITALS: BP 127/58
[2018-02-20 04:00] VITALS: BP 115/57
[2018-02-20 04:50] LABS: BASOPHILS 0.3 % (0-2); EOSINOPHILS 4.2 % (0-7); HEMATOCRIT 32.7 % (36.0-48.0); HEMOGLOBIN 11.3 g/dL (12-16); IMMATURE GRANULOCYTES 0.3 % (0-5); LYMPHOCYTES 33.8 % (15-50); MCH 31.2 pg (26.0-34.0); MCHC 34.6 g/dL (31.0-37.0); MCV 90.3 fL (80.0-100.0); MEAN PLATELET VOLUME 10.7 fL (7.4-10.4); MONOCYTES 8.7 % (2-11); NEUTROPHILS 52.7 % (40-80); RBC 3.62 10x6/uL (4.00-5.40); RDW 12.1 % (11.5-14.5); WBC 3.8 10x3/uL (4.8-10.8)
[2018-02-20 04:51] LABS: PLATELET COUNT 178 10x3/uL (130-400)
[2018-02-20 05:35] LABS: ANION GAP 10.4 mmol/L (8-16); CALCIUM 7.8 mg/dL (8.5-10.1); CARBON DIOXIDE 28.6 mmol/L (21.0-32.0); CREATININE - SERUM 0.9 mg/dL (0.6-1.3); MAGNESIUM - SERUM 1.2 mg/dL (1.8-2.4); PHOSPHOROUS 2.9 mg/dL (2.5-4.9)
[2018-02-20 08:24] VITALS: BP 153/84
[2018-02-20 11:46] LABS: MAGNESIUM - SERUM 1.3 mg/dL (1.8-2.4)
[2018-02-20 11:49] LABS: POTASSIUM - SERUM 3.5 mmol/L (3.5-5.1)
[2018-02-20 12:01] VITALS: BP 155/66
[2018-02-20 16:54] VITALS: BP 129/64
[2018-02-20 20:00] VITALS: BP 135/74
[2018-02-21] VITALS: BP 109/57
[2018-02-21 04:00] VITALS: BP 141/73
[2018-02-21 08:22] VITALS: BP 155/76
[2018-02-21] MEDS ORDERED: FLAGYL500 MG PO (12:13)
[2018-02-21 12:56] VITALS: BP 161/70
== END 2018-02-21 15:55 | disposition home or self-care (01) | DRG 392 ==
LOC: D.ER 16:34 → D.MS 20:33
PROVIDERS: Family Medicine; Internal Medicine Gastroenterology
PROC: 0DBN8ZX Excision of Sigmoid Colon, Via Natural or Artificial Opening Endoscopic, Diagnostic (ICD-10-PCS; principal; 2018-02-19 16:30)
DX: K52.9 Noninfective gastroenteritis and colitis, unspecified (principal); I69.322 Dysarthria following cerebral infarction; E11.9 Type 2 diabetes mellitus without complications; Z79.84 Long term (current) use of oral hypoglycemic drugs; I10 Essential (primary) hypertension; J44.9 Chronic obstructive pulmonary disease, unspecified; F41.9 Anxiety disorder, unspecified; K44.9 Diaphragmatic hernia without obstruction or gangrene; M54.9 Dorsalgia, unspecified; G89.29 Other chronic pain; K57.30 Diverticulosis of large intestine without perforation or abscess without bleeding

== ENCOUNTER 2018-05-04 16:13 | Observation (INO) | payer MEDICARE, MEDICAID ==
[2018-05-04] VITALS (7 sets, daily range): BP systolic 134–167; BP diastolic 67–84
[~2018-05-04] VITALS: Ht 160 cm; Wt 68.6 kg
--- NOTE | ~2018-05-04 | MORECARE ---
CASE MANAGEMENT DISCHARGE SUMMARY PATIENT: DAMEON JAIME UNIT: [id number] ADM DATE: 05/04/18 AGE: 68 : 51 SEX: F ROOM/BED: D.5002 AUTHOR: ADENIKE ROLON PHYSICIAN: REFERRING PHYSICIAN: ANGEL DO MD DATE OF SERVICE: 05/06/18 Discharge Plan Patient Name: DAMEON JAIME Facility: [facility]:[place] : 1950 Planned Disposition: Home Anticipated Discharge Date: 05/05/18 Discharge Date: 05/05/2018 Expected LOS: 1 Initial Reviewer: [email or web address] Initial Review Date: 05/06/2018 Generated: 05/06/18 9:05 am Patient Name: DAMEON JAIME Page [id number] at 0806 All edits/amendments must be made on the electronic document DICTATION DATE: 05/06/18804 [employer] SUPERVISOR: STEPHANIE 05/06/18 08 RPT#: [id number] DC DATE:05/05/18 STATUS: DIS IN [facility] [address] [place] [address] END OF REPORT
--- NOTE | ~2018-05-04 | HEMODYNAMI ---
PATIENT:DAMEON JAIME MEDICAL RECORD: [id number] : 52 [facility] [id number] ADMISSION DATE: 05/04/18 Generatedon:05/05/201812:16 Patient name: DAMEON JAIME Patient #: [id number] SSN: [id number] : 1950 Date of study: 05/05/2018 Page: Of Hemodynamic Procedure Report Patient Data Patient Demographics Procedure consent was obtained First Name: DAMEON Gender: Female Last Name: YENI : 1950 [facility] Initial: Dariusz Age: 68 year(s) Patient #: [id number] Race: SSN: [id number] Additional ID: [id number] Contact details [address]: [address] [place] [address] [place] State: [place] City: [place] Zip code: [address] Past Medical History Allergies Allergen Reaction Date Comments Reported Other allergy 04/05/2015 penicillins Penicillins 12/14/2016 Penicillins 09/24/2017 Admission Admission Data Admission Date: 05/04/2018 Admission Time: 20:05 Room #: D.2117 Procedure Procedure Types Cath Procedure Diagnostic Procedure [facility] w/Coronaries Sedation Charges Moderate Sedation up to 15 minutes PCI Procedure Coronary Stent Coronary Stent Initial Procedure Description Procedure Date Procedure Date: 05/05/2018 Procedure Start Time: 12:03 Procedure End Time: 12:15 Procedure Staff Name Function Brendon Durbin MD Performing Physician Anali Gaspar RT Monitor Leyda Canales RT Scrub Benny Youssef RN Nurse Procedure Data Cath Procedure Fluoroscopy Diagnostic fluoroscopy Total fluoroscopy Time: 2.4 time: 2.4 min min Diagnostic fluoroscopy Total fluoroscopy dose: 468 dose: 468 mGy mGy Contrast Material Contrast Material Type Amount (ml) Isovue 300 66 Entry Location Entry Primary Successful Side Size Upsize Upsize Entry Closure Succes sful Closure Location (Fr) 1 (Fr) 2 (Fr) Remarks Device Remarks Femoral Right 5 Fr 6 Fr Exoseal artery Short Estimated blood loss: 5 ml Diagnostic catheters Device Type Used For End Catheter Placement MULTIPACK Pigtail 5 Fr LV Angiography catheter MULTIPACK JL 4.0 5Fr Left Coronary catheter Angiography MULTIPACK 3DRC 5Fr Right Coronary catheter Angiography Procedure Complications No complications Procedure Medications Medication Administration Route Dosage Oxygen etCO2 Nasal cannula 2 l/min Heparin Flush Bag added to field 2 bags (1000units/500ml NS) 0.9% NaCl I.V. 100 ml/hr Plavix P.O. 300 mg Fentanyl I.V. 50 mcg Versed I.V. 1 mg Fentanyl I.V. 50 mcg Versed I.V. 1 mg Heparin Bolus I.V. 4000 units Hemodynamics Rest Heart Rate: 58 (bpm) Pressure Samples Time Site Value (mmHg) Purpose Heart Use Rate(bpm) 12:04 LV 299/86,123 Snapshot 60 Snapshots Pre Cath Intra NCS Post Cath Vital Signs Time Heart Resp SPO2 etCO2 NIBP (mmHg) Rhythm Pain Sedation Rate (ipm) (%) (mmHg) Status Level (bpm) 11:55:24 62 16 96 0 159/69(105) NSR 0 (11) 10(A) , No pain 12:00:24 64 17 94 0 Measuring NSR 0 (11) 10(A) , No pain 12:00:36 62 17 96 0 166/78(96) NSR 0 (11) 10(A) , No pain 12:04:56 59 17 76 0 110/67(93) NSR 0 (11) 9(A) , No pain 12:08:59 63 16 98 0 121/67(111) NSR 0 (11) 9(A) , No pain 12:13:10 64 16 98 0 114/56(83) NSR 0 (11) 9(A) , No pain Medications Time Medication Route Dose Verified Delivered Reason Notes Effectiveness by by 11:58:43 Oxygen etCO2 2 Brendon Zapata Per physician Nasal l/min Gifty Youssef RN cannula 11:58:50 Heparin Flush added 2 Brendon Zapata used for Bag to bags Gifty Youssef rn team leader (1000units/500ml field NS) 11:59:00 0.9% NaCl I.V. 100 Brendon Zapata Per physician ml/hr Gifty Youssef RN 11:59:33 Plavix P.O. 300 Brendon Zapata for mg Gifty Youssef RN antiplatelet therapy 12:02:02 Fentanyl I.V. 50 Brendon Zapata for sedation mcg Gifty Youssef RN 12:02:08 Versed I.V. 1 mg Brendon Zapata for sedation Gifty Youssef RN 12:03:09 Fentanyl I.V. 50 Brendon Zapata for sedation mcg Gifty Youssef RN 12:03:14 Versed I.V. 1 mg Brendon Zapata for sedation Gifty Youssef RN 12:09:21 Heparin Bolus I.V. 4000 Brendon Zapata for units Gifty Youssef RN anticoagulation Procedure Log Time Note 10:54:15 Diagnostic Cath Status : Elective 11:34:12 Benny Youssef RN sent for patient. Start room use. 11:34:12 Time tracking: Regular hours (M-F 7:00 - 5:00) 11:34:17 Plan of Care:Hemodynamics will remain stable., Cardiac rhythm will remain stable., Comfort level will be maintained., Respiratory function will remain adequate., Patient/ family verbilizes understanding of procedure., Procedure tolerated without complication., Recovers from procedure without complications.. 11:54:07 Patient received from Med II to CCL 2 Alert and oriented. Tansferred to table in Supine position. 11:54:08 Warm blankets applied, and neto hugger turned on for patient comfort. 11:54:08 Correct patient and procedure confirmed by team. 11:54:09 Signed procedure consent form obtained from patient. 11:54:11 ECG and BP/O2 sat monitors applied to patient. 11:54:11 Vital chart was started 11:54:12 Baseline sample Acquired. 11:54:15 Rhythm: sinus rhythm 11:54:18 Full Disclosure recording started 11:54:21 H&P Date Dictated: 05/05/2018 New H&P dictated by physician.. 11:54:23 Pre-procedure instructions explained to patient. 11:54:23 Pre-op teaching completed and patient verbalized understanding. 11:54:25 Family unavailable. 11:54:27 Patient NPO since Midnight. 11:54:29 Is the patient allergic to Iodine/contrast media? No. 11:54:30 Was the patient premedicated? No 11:54:34 Is patient on blood thinner?No 11:54:41 Patient diabetic? Yes. 11:54:42 If diabetic: On Metformin? No 11:55:18 Previous problem with sedation/anesthesia? No ? 11:55:20 Snore? No 11:55:21 Sleep apnea? No 11:55:22 Deviated septum? No 11:55:23 Opens mouth fully? Yes 11:55:23 Sticks out tongue? Yes 11:55:25 Airway obstruction? No ? 11:55:28 Dentures? No ? 11:55:31 Pre procedure: right dorsailis pedis pulse 2+ Normal; easily identifiable; not easily obliterated 11:55:33 Pre procedure: left dorsailis pedis pulse 2+ Normal; easily identifiable; not easily obliterated 11:55:35 Patient pain scale 0/10 ?. 11:55:41 IV patent on arrival in right antecubital with 0.9% NaCl at [facility]. 11:55:43 Lab results completed and on chart. 11:55:47 Right groin area was prepped with chlora-prep and draped in sterile fashion 11:55:48 Alarms reviewed by R. N. 11:55:48 Sharps counted by scrub and verified by R.N. 11:55:50 Physician arrived 11:55:50 --------ALL STOP TIME OUT------ 11:55:51 Final Timeout: patient, procedure, and site verified with staff and physician. All members of the team are in agreement. 11:55:52 Right groin site verified by team. 11:56:00 Physical assessment completed. ASA score P 2 - A patient with mild systemic disease as per Brendon Durbin MD. 11:56:03 Sedation plan: IV Moderate Sedation Medication:Versed, Fentanyl 11:58:23 Use device set Femoral Dx 11:58:24 ACIST Syringe (71446) opened to sterile field. 11:58:25 Bag Decanter (2002S) opened to sterile field. 11:58:25 Medline Cath Pack ([id number]) opened to sterile field. 11:58:26 DIAGNOSTIC WIRE .035 260cm J wire (309001) opened to sterile field. 11:58:27 ACIST Hand Control (44043) opened to sterile field. 11:58:28 ACIST Manifold (94323) opened to sterile field. 11:58:28 DIAGNOSTIC Multipack 5Fr catheter set (FK5416) opened to sterile field. 11:58:29 Tegaderm 4 x 4 (1626W) opened to sterile field. 11:58:30 SHEATH Prelude 5Fr 0.035 (BUX-9A-62-035) opened to sterile field. 11:58:43 Oxygen 2 l/min etCO2 Nasal cannula was administered by Benny Youssef RN; Per physician; 11:58:50 Heparin Flush Bag (1000units/500ml NS) 2 bags added to field was administered by Benny Youssef RN; used for procedure; 11:59:00 0.9% NaCl 100 ml/hr I.V. was administered by Benny Youssef RN; Per physician; 11:59:33 Plavix 300 mg P.O. was administered by Benny Youssef RN; for antiplatelet therapy; 12:00:42 Procedure started. 12:02:02 Fentanyl 50 mcg I.V. was administered by Benny Youssef RN; for sedation; 12:02:08 Versed 1 mg I.V. was administered by Benny Youssef RN; for sedation; 12:03:09 Fentanyl 50 mcg I.V. was administered by Benny Youssef RN; for sedation; 12:03:14 Versed 1 mg I.V. was administered by Benny Youssef RN; for sedation; 12:03:28 Local anesthetic to right femoral artery with Lidocaine 2% by Brendon Durbin MD.INITIAL ACCESS ONLY 12:03:38 A 5 Fr sheath was inserted into the Right Femoral artery 12:03:41 Zero performed for pressure channel P1 12:03:56 A MULTIPACK Pigtail 5 Fr catheter was advanced over the wire and used for LV Angiography. 12:04:54 LV hemodynamics recorded. 12:04:55 LV gram done using SHIPMAN 12:04:58 Injector settings: Ml/sec: 5, Volume: 15, 12:05:07 EF : 50 % 12:05:12 Catheter removed. 12:05:30 A MULTIPACK JL 4.0 5Fr catheter was advanced over the wire and used for Left Coronary Angiography. 12:06:02 LCA angiography performed. 12:06:05 Injector settings: Ml/sec: 3, Volume: 6, 12:06:45 Catheter removed. 12:06:50 A MULTIPACK 3DRC 5Fr catheter was advanced over the wire and used for Right Coronary Angiography. 12:07:31 RCA angiography performed. 12:07:36 Injector settings: Ml/sec: 3, Volume: 6, 12:07:37 Catheter removed. 12:07:38 Proceeding to intervention. 12:08:28 CHOICE PT Extra Support 182cm wire ([id number]) opened to sterile field. 12:08:29 INFLATOR Merit BasixCompak (SM6433) opened to sterile field. 12:08:29 SHEATH Prelude 6Fr 0.035 (AMJ-1N-30-035) opened to sterile field. 12:08:56 GUIDE 6FR XBLAD 3.5 catheter ([id number]) opened to sterile field. 12:09:05 Sheath upsized to a 6 Fr Short. 12:09:21 Heparin Bolus 4000 units I.V. was administered by Benny Youssef RN; for anticoagulation; 12:09:37 6 Fr xblad 3.5 guide catheter was inserted over the wire 12:10:25 choice pt wire advanced. 12:10:26 Wire advanced across lesion. 12:11:07 Place stent Inflation Number: 1 A JOSE ANTONIO RX 3.0 x 15 stent ([id number]) was prepped and advanced across the Prox CX. The stent was deployed at 15 HALEY for 0:10 (min:sec). 12:12:18 Stent catheter was removed intact over wire. 12:12:18 Wire removed. 12:12:18 Guide catheter removed. 12:12:25 EXOSEAL 6Fr (EX600) opened to sterile field. 12:12:48 Sheath removed intact; hemostasis achieved with Exoseal to the Right Femoral artery. 12:12:51 Procedure ended.(Physican Out) 12:14:32 Fluoroscopy time 02.40 minutes. 12:14:38 Fluoroscopy dose: 468 mGy 12:14:38 Flurop Dose total: 468 12:14:42 Contrast amount:Isovue 300 66ml. 12:14:44 Sharps counted by scrub and verified by R.N. 12:14:46 Insertion/operative site no bleeding no hematoma. 12:14:54 Post-op/insertion site Right Femoral artery dressed using a 4 x 4 and Tegaderm. 12:14:57 Post right femoral artery:stable 12:14:59 Post Procedure Pulses reassessed and unchanged 12:15:03 Post procedure rhythm: unchanged. 12:15:05 Estimated blood loss: 5 ml 12:15:06 Post procedure instruction explained to patient.Patient verbalizes understanding. 12:15:07 Patient needs reinforcement of post procedure teaching. 12:15:19 Procedure type changed to Cath procedure, Diagnostic procedure, LHC, LHC w/Coronaries, Sedation Charges, Moderate Sedation up to 15 minutes, PCI procedure, Coronary Stent, Coronary Stent Initial 12:15:20 Procedure and supply charges have been captured, reviewed, submitted and are correct. 12:15:24 Procedure Complication : No complications 12:15:26 Vital chart was stopped 12:15:26 See physician's report for complete and final results. 12:15:35 Report given to Med II. 12:15:37 Patient transfered to Med II with Stretcher. 12:15:39 Procedure ended. 12:15:39 Full Disclosure recording stopped 12:15:45 ACC-PCI Only Patient was given prescriptions, or instructed by Brendon Durbin MD to start/continue the following medications upon discharge: Plavix 12:15:46 End room use (Document Last) Intervention Summary Intervention Notes Time ActionType Lesion and Equipment Used Action# Pressure Duration Attributes 12:11:[address] Place stent Prox CX JOSE ANTONIO RX 3.0 x 1 15 00:10 15 stent ([id number]) Device Usage Item Name Manufacture Quantity Catalog Number Hospital Part Current Minimal Lot# / Charge Number Stock Stock Serial# Code ACIST Syringe Acist 1 74000 [id number] 402019 594182 20 (51758) Medical Systems Inc Bag Decanter Microtek 1 2001S 775206 57331 421370 5 () Medical Inc. Medline Cath Medline 1 [id number] 534729 81385 801073 5 Pack ([id number]) DIAGNOSTIC WIRE [place] 1 101437 025923 386722 416473 30 .035 260cm J wire (645239) ACIST Hand Acist 1 74840 640492 244880 873247 5 Control (51113) Medical Systems Inc ACIST Manifold Acist 1 72917 544306 701750 394296 5 (52879) Medical Systems Inc DIAGNOSTIC Cardinal 1 [id number] 591155 64351 752329 30 Multipack 5Fr Health catheter set ([id number]) Tegaderm 4 x 4 3M 1 1626W 661467 826376 216235 5 (1626W) SHEATH Prelude Merit 1 GUF-1B-84 150655 495474 931078 5 5Fr 0.035 Medical (RQO-9C-63-035) MULTIPACK Cardinal 1 916446 5 Pigtail 5 Fr Health catheter MULTIPACK JL Cardinal 1 [id number] 5 4.0 5Fr Health catheter MULTIPACK 3DRC Cardinal 1 351677 5 5Fr catheter Health CHOICE PT Extra [place] 1 [id number] 315521 505781 041647 5 Support 182cm Scientific wire ([id number]) INFLATOR Merit Merit 1 TU8054 355223 848171 684211 15 BasixCompak Medical ([id number]) SHEATH Prelude Merit 1 PUM-3H-98-35 661689 9653257 476926 5 6Fr 0.035 Medical (TNY-3D-89-035) GUIDE 6FR XBLAD Cardinal 1 [id number] 048594 319639 789539 10 3.5 catheter Health ([id number]) JOSE ANTONIO RX 3.0 x Medtronic 1 [id number] 549668 1389815 494901 5 [id number] 15 stent ([id number]) EXOSEAL 6Fr Cardinal 1 EX600 617357 447610 627563 10 (EX600) Health Signature Audit [place] Stage Time Signature Unsigned Intra-Procedure 05/05/2018 Anali Gaspar 12:16:47 PM RT(R) Signatures Monitor : Anali Gaspar RT Signature : Date : Time : [facility] [address] [place] [address]
--- NOTE | ~2018-05-04 | OP ---
PATIENT NAME: DAMEON JAIME MEDICAL RECORD: [id number] :52 LOCATION:D.M2 D.2117 ADMISSION DATE:05/04/18 SURGEON: ANGEL DO MD DATE OF OPERATION: 05/05/2018 PROCEDURES: 1. PTCA stent left circumflex. 2. Left heart catheterization. 3. Selective coronary angiography. 4. Left ventriculogram. INDICATION: Angina and coronary artery disease. PROCEDURE IN DETAIL: After informed consent was obtained and after a detailed description of the risks, benefits as well as alternative therapies, the patient elected to proceed with angiogram and angioplasty. The right femoral area was prepped and draped in normal sterile fashion. Right femoral artery was cannulated via modified Seldinger technique with placement of 6-Trinidadian sheath. All catheters exchanged through this sheath. FINDINGS: The left ventriculogram was performed in standard 30-degree SHIPMAN view, reveals good cardiac wall motion throughout all segments. Overall ejection fraction estimated at 50%. SELECTIVE CORONARY ANGIOGRAPHY: 1. Left main is with no significant angiographic disease. 2. Left anterior descending has previously placed stents, these are widely patent with no significant restenosis. No significant disease elsewise throughout the LAD or its branches. 3. Left circumflex has 80% stenosis proximally. Previously placed stents in the mid and distal vessel are widely patent. 4. The right coronary artery has previously placed stents, these are widely patent with no significant restenosis. No disease elsewise throughout the RCA or its branches. PTCA STENT OF THE LEFT CIRCUMFLEX: The stent used was a 3.0 x 15 mm [place]. Result was 0% residual stenosis. OVERALL IMPRESSION: Successful percutaneous transluminal coronary angioplasty stent of the left circumflex going from 80% initial stenosis to 0% residual. TRANSINT:[id number] Voice Confirmation ID: [id number] DOCUMENT ID: [id number] ANGLE DO MD at [id number] CC: [id number] DICTATION DATE: 05/05/18 1216 ADMINISTRATIVE SERVICES ASSISTANT: 05/05/18 1301 DIS IN 05/05/18 [facility] [address] [place] [address]
[~2018-05-04 16:13] MED LIST changes: +COREG12.5 MG PO; +FLAGYL500 MG PO
[2018-05-04 17:17] LABS: BASOPHILS 0.6 % (0-2); EOSINOPHILS 3.6 % (0-7); HEMATOCRIT 40.4 % (36.0-48.0); HEMOGLOBIN 13.6 g/dL (12-16); IMMATURE GRANULOCYTES 0.1 % (0-5); LYMPHOCYTES 26.8 % (15-50); MCH 30.5 pg (26.0-34.0); MCHC 33.7 g/dL (31.0-37.0); MCV 90.6 fL (80.0-100.0); MEAN PLATELET VOLUME 11.6 fL (7.4-10.4); MONOCYTES 8.4 % (2-11); NEUTROPHILS 60.5 % (40-80); PLATELET COUNT 164 10x3/uL (130-400); RBC 4.46 10x6/uL (4.00-5.40); RDW 12.9 % (11.5-14.5); WBC 6.8 10x3/uL (4.8-10.8)
[2018-05-04 18:09] LABS: ALBUMIN 3.6 g/dL (3.4-5.0); ALKALINE PHOSPHATASE 64 U/L (46-116); ALT (SGPT) 26 U/L (10-68); BILIRUBIN - TOTAL 0.55 mg/dL (0.2-1.3); CALC OSMOLALITY 291 mosm/kg (275-300); CALCIUM 9.4 mg/dL (8.5-10.1); CARBON DIOXIDE 30.2 mmol/L (21.0-32.0); CHLORIDE - SERUM 105 mmol/L (98-107); CREATININE - SERUM 1.1 mg/dL (0.6-1.3); GLUCOSE 105 mg/dL (74-106); POTASSIUM - SERUM 4.5 mmol/L (3.5-5.1); PROTEIN - SERUM 6.9 g/dL (6.4-8.2); SODIUM 145 mmol/L (136-145); UREA NITROGEN 21 mg/dL (7-18); eGFR NON AFRICAN AMERICAN 52 mL/min (90-120)
[2018-05-04 18:18] LABS: MAGNESIUM - SERUM 1.9 mg/dL (1.8-2.4); PRO BNP 451 pg/mL (0-125)
[2018-05-04 18:25] LABS: TROPONIN-I < 0.017 ng/mL (0.000-0.060)
[2018-05-04] MEDS ORDERED: PROTONIX40 MG PO (21:52)
[2018-05-04 23:37] LABS: CKMB 1.6 U/L (0.0-3.6); CREATINE KINASE 94 UL (21-215); TROPONIN-I < 0.017 ng/mL (0.000-0.060)
[2018-05-05] VITALS: BP 137/77
[2018-05-05 04:00] VITALS: BP 114/56
[2018-05-05 04:15] VITALS: BP 171/72; BMI 26.8
[2018-05-05 06:03] LABS: CREATINE KINASE 68 UL (21-215); TROPONIN-I < 0.017 ng/mL (0.000-0.060)
[2018-05-05 08:36] VITALS: Ht 160 cm; Wt 68.6 kg
[2018-05-05 08:40] VITALS: BP 170/78
[2018-05-05 08:40] LABS: ANION GAP 14.3 mmol/L (8-16); CALCIUM 9.1 mg/dL (8.5-10.1); CARBON DIOXIDE 27.7 mmol/L (21.0-32.0); CREATININE - SERUM 1.3 mg/dL (0.6-1.3)
[2018-05-05 08:51] LABS: BASOPHILS 0.5 % (0-2); EOSINOPHILS 3.9 % (0-7); HEMATOCRIT 38.5 % (36.0-48.0); HEMOGLOBIN 12.9 g/dL (12-16); IMMATURE GRANULOCYTES 0.2 % (0-5); MCH 30.4 pg (26.0-34.0); MCHC 33.5 g/dL (31.0-37.0); MCV 90.6 fL (80.0-100.0); MEAN PLATELET VOLUME 11.2 fL (7.4-10.4); MONOCYTES 9.7 % (2-11); NEUTROPHILS 60.7 % (40-80); PLATELET COUNT 166 10x3/uL (130-400); RBC 4.25 10x6/uL (4.00-5.40); RDW 13.1 % (11.5-14.5); WBC 5.7 10x3/uL (4.8-10.8)
[2018-05-05 11:37] LABS: CREATINE KINASE 69 UL (21-215); TROPONIN-I < 0.017 ng/mL (0.000-0.060)
[2018-05-05 11:42] VITALS: BP 113/67
[2018-05-05 15:28] VITALS: BP 129/65
[2018-05-05] MEDS ORDERED: ASPIRIN81 MG PO (15:43)
== END 2018-05-05 18:32 | disposition home or self-care (01) ==
LOC: D.ER 16:13 → D.M2 20:05 → OBSVTIME 20:05 → D.EDHOLD 20:05 → D.M2 20:38 → D.SDCHOLD 05-05 15:02 → D.M2 05-05 15:03
PROVIDERS: Family Medicine; Internal Medicine Interventional Cardiology
DX: I25.110 Atherosclerotic heart disease of native coronary artery with unstable angina pectoris (principal); Z95.5 Presence of coronary angioplasty implant and graft; E78.5 Hyperlipidemia, unspecified; J44.9 Chronic obstructive pulmonary disease, unspecified; I16.0 Hypertensive urgency; Z86.73 Personal history of transient ischemic attack (TIA), and cerebral infarction without residual deficits; E11.9 Type 2 diabetes mellitus without complications; Z87.891 Personal history of nicotine dependence
CPT/HCPCS: 93458; C9600

== ENCOUNTER 2018-06-12 15:52 | Emergency (ER) | payer MEDICARE, MEDICAID ==
[~2018-06-12] VITALS: Ht 160 cm; Wt 68.2 kg
[2018-06-12 16:14] VITALS: Ht 160 cm; Wt 68.2 kg
[2018-06-12 16:51] LABS: BASOPHILS 0.5 % (0-2); EOSINOPHILS 3.9 % (0-7); HEMATOCRIT 37.6 % (36.0-48.0); HEMOGLOBIN 12.5 g/dL (12-16); LYMPHOCYTES 28.1 % (15-50); MCH 29.9 pg (26.0-34.0); MCHC 33.2 g/dL (31.0-37.0); MEAN PLATELET VOLUME 10.7 fL (7.4-10.4); MONOCYTES 6.8 % (2-11); NEUTROPHILS 60.7 % (40-80); PLATELET COUNT 196 10x3/uL (130-400); RBC 4.18 10x6/uL (4.00-5.40); RDW 13.4 % (11.5-14.5); WBC 5.9 10x3/uL (4.8-10.8)
[2018-06-12 17:04] LABS: ALBUMIN 3.6 g/dL (3.4-5.0); ALKALINE PHOSPHATASE 63 U/L (46-116); ALT (SGPT) 21 U/L (10-68); APTT 28.3 SECONDS (22.8-39.4); BILIRUBIN - TOTAL 0.39 mg/dL (0.2-1.3); CALC OSMOLALITY 289 mosm/kg (275-300); CALCIUM 8.8 mg/dL (8.5-10.1); CARBON DIOXIDE 30.2 mmol/L (21.0-32.0); CHLORIDE - SERUM 104 mmol/L (98-107); CREATININE - SERUM 1.3 mg/dL (0.6-1.3); GLUCOSE 119 mg/dL (74-106); INR 1.09 (0.85-1.17); POTASSIUM - SERUM 4.2 mmol/L (3.5-5.1); PROTEIN - SERUM 6.9 g/dL (6.4-8.2); PROTIME 13.6 SECONDS (11.6-15.0); SODIUM 142 mmol/L (136-145); UREA NITROGEN 29 mg/dL (7-18); eGFR NON AFRICAN AMERICAN 43 mL/min (90-120)
[2018-06-12 17:05] LABS: D-DIMER-QUANTITATIVE 0.61 ug/mLFEU (0.20-0.54)
[2018-06-12 17:15] LABS: TROPONIN-I < 0.017 ng/mL (0.000-0.060)
[2018-06-12 19:13] LABS: APPEARANCE CLEAR (CLEAR); BILIRUBIN NEGATIVE (NEGATIVE); COLOR STRAW (YELLOW); GLUCOSE NEGATIVE (NEGATIVE); KETONE NEGATIVE (NEGATIVE); NITRITE NEGATIVE (NEGATIVE); PROTEIN NEGATIVE (NEGATIVE); SPECIFIC GRAVITY 1.005 (1.005-1.020); UROBILINOGEN NORMAL (NORMAL)
[2018-06-12 23:56] VITALS: BP 123/69
== END 2018-06-12 22:05 | disposition home or self-care (01) ==
LOC: D.ER 15:52
PROVIDERS: Family Medicine
DX: R53.1 Weakness (principal); Z86.73 Personal history of transient ischemic attack (TIA), and cerebral infarction without residual deficits; E11.9 Type 2 diabetes mellitus without complications; I10 Essential (primary) hypertension; J44.9 Chronic obstructive pulmonary disease, unspecified; F17.200 Nicotine dependence, unspecified, uncomplicated

== ENCOUNTER 2018-09-30 15:04 | Emergency (ER) | payer MEDICARE, MEDICAID ==
[~2018-09-30] VITALS: Ht 160 cm; Wt 65.9 kg
[2018-09-30 15:06] VITALS: Ht 160 cm; Wt 65.9 kg
[2018-09-30 16:14] LABS: BASOPHILS 0.5 % (0-2); EOSINOPHILS 3.6 % (0-7); HEMATOCRIT 39.2 % (36.0-48.0); HEMOGLOBIN 13.1 g/dL (12-16); IMMATURE GRANULOCYTES 0.6 % (0-5); LYMPHOCYTES 15.7 % (15-50); MCH 30.5 pg (26.0-34.0); MCHC 33.4 g/dL (31.0-37.0); MCV 91.2 fL (80.0-100.0); MONOCYTES 11.3 % (2-11); NEUTROPHILS 68.3 % (40-80); PLATELET COUNT 137 10x3/uL (130-400); RDW 13.3 % (11.5-14.5); WBC 6.2 10x3/uL (4.8-10.8)
[2018-09-30 16:30] LABS: ALBUMIN 3.2 g/dL (3.4-5.0); ANION GAP 10.8 mmol/L (8-16); BILIRUBIN - TOTAL 0.57 mg/dL (0.2-1.3); CALCIUM 8.9 mg/dL (8.5-10.1); CARBON DIOXIDE 29.6 mmol/L (21.0-32.0); CREATININE - SERUM 1.2 mg/dL (0.6-1.3); POTASSIUM - SERUM 4.4 mmol/L (3.5-5.1); PROTEIN - SERUM 6.9 g/dL (6.4-8.2)
[2018-09-30] MEDS ORDERED: DOXYCYCLINE HY100 M2 PO (16:35)
[2018-09-30 16:40] LABS: APPEARANCE CLEAR (CLEAR); BILIRUBIN NEGATIVE (NEGATIVE); COLOR STRAW (YELLOW); GLUCOSE NEGATIVE (NEGATIVE); KETONE NEGATIVE (NEGATIVE); NITRITE NEGATIVE (NEGATIVE); PROTEIN NEGATIVE (NEGATIVE); SPECIFIC GRAVITY 1.005 (1.005-1.020); UROBILINOGEN NORMAL (NORMAL)
[2018-09-30] MEDS ORDERED: ALBUTEROL SULF8.5 GM INH (16:58)
[2018-09-30] MEDS ORDERED: SCOT-TUSSI10 MG/5 ML PO (16:58)
[2018-09-30 18:53] VITALS: BP 129/61
== END 2018-09-30 18:32 | disposition home or self-care (01) ==
LOC: D.ER 15:04
PROVIDERS: Emergency Medicine
DX: J40 Bronchitis, not specified as acute or chronic (principal)

== ENCOUNTER 2019-02-10 12:30 | Emergency (ER) | payer MEDICARE, MEDICAID ==
[~2019-02-10] VITALS: Ht 160 cm; Wt 70.5 kg
[~2019-02-10 12:30] MED LIST changes: +ALBUTEROL SULF8.5 GM INH; +DOXYCYCLINE HY100 M2 PO; +SCOT-TUSSI10 MG/5 ML PO
[2019-02-10 12:32] VITALS: Ht 160 cm; Wt 70.5 kg
[2019-02-10] MEDS ORDERED: TALWIN NX1 TAB PO (14:54)
[2019-02-10] MEDS ORDERED: BACLOFEN20 M1 PO (14:54)
[2019-02-10 16:43] VITALS: BP 150/74
== END 2019-02-10 16:40 | disposition home or self-care (01) ==
LOC: D.ER 12:30
DX: M54.6 Pain in thoracic spine (principal); M54.5 Low back pain; M79.18 Myalgia, other site

== ENCOUNTER 2019-02-18 16:19 | Inpatient (IN) | payer MEDICARE, MEDICAID ==
[~2019-02-18] VITALS: Ht 160 cm; Wt 68.2 kg
[~2019-02-18 16:19] MED LIST changes: +BACLOFEN20 M1 PO; +TALWIN NX1 TAB PO
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
[2019-02-18 17:05] LABS: APPEARANCE CLEAR (CLEAR); COLOR YELLOW (YELLOW); GLUCOSE 50 mg/dL (NEGATIVE); NITRITE NEGATIVE (NEGATIVE); PROTEIN TRACE mg/dL (NEGATIVE); SPECIFIC GRAVITY 1.025 (1.005-1.020)
[2019-02-18 17:06] LABS: BILIRUBIN NEGATIVE (NEGATIVE); KETONE MODERATE mg/dL (NEGATIVE); UROBILINOGEN NORMAL (NORMAL)
[2019-02-18 17:07] LABS: RED CELLS - URINE OCC /hpf (0-5); WHITE CELLS - URINE OCC /hpf (0-5)
[2019-02-18 17:13] LABS: UDS - AMPHET NEGATIVE QUAL (NEGATIVE); UDS - BARB NEGATIVE QUAL (NEGATIVE); UDS - BENZO NEGATIVE QUAL (NEGATIVE); UDS - COCAINE POSITIVE QUAL (NEGATIVE); UDS - OPIATE NEGATIVE QUAL (NEGATIVE); UDS - PCP NEGATIVE QUAL (NEGATIVE); UDS - THC NEGATIVE QUAL (NEGATIVE)
[2019-02-18 19:25] LABS: APTT 20.1 SECONDS (22.8-39.4); INR 1.06 (0.85-1.17); PROTIME 13.3 SECONDS (11.6-15.0)
--- NOTE | 2019-02-18 19:25 | NUR ---
RECEIVED REPORT FROM PORTIA PAGE. PT IS LAYING IN BED. ORIENTED TO PERSON ONLY. BRUISING NOTED TO RIGHT EYE AND FOREHEAD. COLOR WNL FOR RACE. RSEPIRATIOSN ARE EVEN AND UNLABORED. WILL CONTINUE TO MONITOR
[2019-02-18 19:28] LABS: BASOPHILS 0.1 % (0-2); EOSINOPHILS 0.1 % (0-7); HEMATOCRIT 41.9 % (36.0-48.0); HEMOGLOBIN 14.3 g/dL (12-16); IMMATURE GRANULOCYTES 0.3 % (0-5); LYMPHOCYTES 6.7 % (15-50); MCH 31.5 pg (26.0-34.0); MCHC 34.1 g/dL (31.0-37.0); MCV 92.3 fL (80.0-100.0); MEAN PLATELET VOLUME 10.3 fL (7.4-10.4); MONOCYTES 5.8 % (2-11); RBC 4.54 10x6/uL (4.00-5.40); RDW 13.7 % (11.5-14.5); WBC 14.5 10x3/uL (4.8-10.8)
[2019-02-18 19:29] LABS: PLATELET COUNT 203 10x3/uL (130-400)
[2019-02-18 19:39] LABS: ALBUMIN 3.8 g/dL (3.4-5.0); ANION GAP 15.6 mmol/L (8-16); BILIRUBIN - TOTAL 0.59 mg/dL (0.2-1.3); CARBON DIOXIDE 23.2 mmol/L (21.0-32.0); POTASSIUM - SERUM 3.8 mmol/L (3.5-5.1); PROTEIN - SERUM 6.9 g/dL (6.4-8.2)
[2019-02-18 20:00] VITALS: BP 182/88
--- NOTE | 2019-02-18 21:50 | NUR ---
PATIENT ARRIVED TO UNIT VIA STRETCHER, ACCOMPANIED BY HEAD OF DATA. CONFUSED, SPEECH GRABLED, POOR HISTORIAN. BP 181/80, REASSESSED BP OBTAINED READING OF 154/71. ESTEE ROBERSON APN AT BEDSIDE EXAMINING PATIENT. NO MOVEMENT NOTED TO LT SIDE, REPORTS IT IS DUE TO PREVIOUS STROKE. ALL ICU MONITORING INTIATED. WILL CONTINUE TO MONITOR.
[2019-02-18 22:00] VITALS: BP 157/60
[2019-02-18 22:28] VITALS: BP 181/80; BMI 25.0
[2019-02-18 23:00] VITALS: BP 151/64
--- NOTE | 2019-02-18 23:00 | NUR ---
NO ACUTE CHANGES NOTED, DENIES NEEDS, FOLLOWING COMMANDS. WILL CONTINUE TO MONITOR.
[2019-02-19] VITALS (29 sets, daily range): BP systolic 101–173; BP diastolic 40–91; Ht 160 cm; Wt 68.2 kg
--- NOTE | 2019-02-19 01:00 | NUR ---
RESTING, DENIES NEEDS. WILL CONTINUE TO MONITOR.
--- NOTE | 2019-02-19 03:17 | NUR ---
REASSESSMENT COMPLETED PER FLOW SHEET, SEE FOR DETAILS. DENIES NEEDS. WILL CONTINUE TO MONITOR.
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
[2019-02-19 04:50] LABS: HEMATOCRIT 41.8 % (36.0-48.0); HEMOGLOBIN 14.6 g/dL (12-16); MCH 31.7 pg (26.0-34.0); MCHC 34.9 g/dL (31.0-37.0); MCV 90.9 fL (80.0-100.0); MEAN PLATELET VOLUME 10.8 fL (7.4-10.4); PLATELET COUNT 222 10x3/uL (130-400); RDW 13.7 % (11.5-14.5); WBC 11.7 10x3/uL (4.8-10.8)
[2019-02-19 05:11] LABS: ALBUMIN 3.8 g/dL (3.4-5.0); ANION GAP 15.7 mmol/L (8-16); BILIRUBIN - TOTAL 0.59 mg/dL (0.2-1.3); CALCIUM 9.5 mg/dL (8.5-10.1); CARBON DIOXIDE 23.9 mmol/L (21.0-32.0); CREATININE - SERUM 1.1 mg/dL (0.6-1.3); MAGNESIUM - SERUM 1.7 mg/dL (1.8-2.4); PHOSPHOROUS 2.2 mg/dL (2.5-4.9); POTASSIUM - SERUM 3.6 mmol/L (3.5-5.1); PROTEIN - SERUM 7.4 g/dL (6.4-8.2); THYROID STIMULATING HORMONE 0.5 uIU/mL (0.36-3.74)
--- NOTE | 2019-02-19 05:19 | NUR ---
SCHEDULED DECADRON GIVEN, FOLLOWING COMMANDS, NO ACUTE DISTRESS NOTED. WILL CONTINUE TO MONITOR.
[2019-02-19 05:22] LABS: LYMPHOCYTES 8 % (15-50); MONOCYTES 1 % (2-11); NEUTROPHILS 91 % (40-80); PLATELET ESTIMATE NORMAL; TOXIC GRANULATION 1+
--- NOTE | 2019-02-19 07:00 | NUR ---
REPORT RECEVIED FROM THE OFF GOING RN. SEE ASSESSMENT IN THE PTS FLOW SHEET. PT ALERT AND FOLLOWS COMANDS BUT HAS A VERY SLURRED AND GARBLED SPEECH. LEFT SIDED PARALYSIS NOTED. PT ABLE TO USE HER RIGHT SIDE WITH NO ISSUES. BILATEARL PUPILS REACTIVE TO LIGHT BUT UNSYMETRICAL. LEFT PUPIL 5MM AND THE RIGHT IS 3MM. BRUSING NOTED TO THE PTS RIGHT BROW. GENERLIZED BRUSING/SCABS NOTED THROUGHOUT THE BODY. RIGHT ANKLE RED/SWOLLEN AND DEFORMED. PT GRIMIACES AND PULLS AWAY WHENEVER ANKLE WAS MOVED. ANKLE LOOKS FRACTURED. DR TAVARES PAGED. VSS AT THIS TIME. CALL LIGHT IN REACH. WILL CONT POC.
--- NOTE | 2019-02-19 08:31 | NUR ---
DR TAVARES CALLED. ANKLE XRAY OBTAINED.
--- NOTE | 2019-02-19 08:32 | NUR ---
DR RONNELL BEARDEN PER DR ANGELES ORDERS.
--- NOTE | 2019-02-19 08:41 | NUR ---
SPOKE WITH DR ROMERO (HELP DESK ENGINEER FOR ORTHOPEDICS). HE IS AWARE OF CONSULT.
--- NOTE | 2019-02-19 09:14 | NUR ---
DR ROMERO AT THE PTS BESIDE. DR ROMERO SET THE PTS ANKLE ZULLY WRAPPED IN ANNA BANDAGE. HE STATED HE IS GOING TO PLAN TO BRING HER BACK TO THE OR TONIGHT IF ITS OK WITH THE OTHER MD'S
--- NOTE | 2019-02-19 09:20 | NUR ---
SPOKE WITH ADRYAN (BOY FRIEND) VIA TELEPHONE. ADRYAN VERY HARD TO COMPREHEND DO TO SEVERE SLURRED SPEECH. ASKED HIM IF THE PT HAD ANY OTHER FAMILY MEMEBERS AND HE STATED THAT SHE HAS A DAUGHTER NAMED TERRA. HE CALLED TERRA AND TERRA CALLED ME BACK. I UPDATED TERRA ON THE PTS CONDITION AND POSSIBLE SURGERY ON HER ANKLE.
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
--- NOTE | 2019-02-19 10:10 | NUR ---
DR SY AT THE PTS BEDSIDE.
--- NOTE | 2019-02-19 10:11 | NUR ---
OK TO PLACE FC PER DR SY.
--- NOTE | 2019-02-19 12:11 | NUR ---
PT LEFT FOR MRI
--- NOTE | 2019-02-19 12:46 | NUR ---
PT BACK FROM MRI. HOOKED TO ICU MONITORS. CALL LIGHT IN REACH. WILL CONT POC.
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
--- NOTE | 2019-02-19 14:01 | NUR ---
PT WENT DOWN STAIRS FOR XRAY OF LUMBAR. LEFT IN A STABLE CONDITION.
--- NOTE | 2019-02-19 14:46 | NUR ---
SPOKE WITH TERRA ABOUT THE PTS CONDITION, AND THE FACT THAT THE PT IS NOT TO HAVE ANY VISITORS. EXPLAINED THAT THE PT IS TO HAVE SUGERY. SHE GAVE CONSENT VIA TELEPHONE. DAVIDNESSED BY ERIKA PAGE.
--- NOTE | 2019-02-19 15:20 | NUR ---
PT PRE OP'D
--- NOTE | 2019-02-19 15:44 | NUR ---
PT LEFT IN A STABLE CONDITION TO THE OR. TERRA NOTIFIED.
--- NOTE | 2019-02-19 18:30 | NUR ---
PT ARRIVED IN THE UNIT. PT TACHYCARDIC AT 140. RECOVERY TEAM CALLED DR WHITE AND ORDERS FOR 5MG OF LABETALOL GIVEN. SEE MAR. RATE NOW 105. BP STABLE. PT REMAINS SAME NEUOLOGICALLY. BOOT NOTED TO RLE ANKLE. FOOT WARM. DP PULSE PALPABLE. CALL LIGHT IN REACH. WILL CONT POC.
--- NOTE | 2019-02-19 19:20 | NUR ---
Received patient sleeping in bed with eyes closed post-op, assessment completed per flowsheet. Patient slightly lethargic post-op, follows simple commands/speech is slightly garbled. R eye bruising noted. S1/S2 noted NSR on telemetry, rythmic and regular. Breathing is shallow on 2L via NC with O2 sat 100%, lung sounds clear throughout. Abdomen is flat/soft with bowel sounds active x4, non-tender. Lama secured, clear concentrated urine noted. LUE flaccid/RUE full ROM with LLE paresis noted and RLE fracture/karlos bandage wrap. Upper pulses palpable with lower pulses weak, patient able to move toes on R foot with weak movement noted L foot. Unable to assess pain at this time, repositioned for comfort. See flowsheet for details, all VSS and will continue to monitor.
--- NOTE | 2019-02-19 21:00 | NUR ---
Patient sleeping in bed with eyes closed, arouses to voice/slightly lethargic. Patient unable to swallow PO meds at this time, IV meds given as ordered. Provided ice chip, coughing noted while attempting to swallow. Will hold patient NPO at this time, and will reassess swallowing when more alert.
--- NOTE | 2019-02-19 23:10 | NUR ---
Reassessment completed per flowsheet, no changes noted from previous assessment. Patient disoriented/lethargic, awakens to voice and follows simple commands. LUE flaccid with RUE full ROM, LLE paresis with RLE fracture wrap. Upper pulses palpable with lower pulses weak, patient moves toes RLE/LLE weak movement noted. Repositioned for comfort, see flowsheet for details. All VSS and will continue to monitor.
[2019-02-20] VITALS (24 sets, daily range): BP systolic 116–171; BP diastolic 43–88
--- NOTE | 2019-02-20 01:24 | NUR ---
Patient sleeping in bed with eyes closed, patient remains slightly lethargic/arouses to voice. Upper pulses palpable with lower pulses weak, RLE elevated with Octavio wrap secured. No further needs at this time, all VSS and will continue to monitor.
--- NOTE | 2019-02-20 03:05 | NUR ---
Reassessment completed per flowsheet, no changes noted from previous assessment. Patient awakens to voice/follows simple commands, anxiety noted upon awakening. R eye bruising noted. RUE full ROM/LUE flaccid, LLE paresis/RLE fracture with Octavio wrap secured. Upper pulses palpable with lower pulses weak, skin warm/dry. Unable to assess pain at this time, repositioned for comfort. See flowsheet for details, all VSS and will continue to monitor.
--- NOTE | 2019-02-20 05:15 | NUR ---
AM labs collected by engine room helper without difficulty, medications given without difficulty. Patient awake/conversant with slight garbled speech, slight disorientation to time. Sips of water without difficulty swallowing noted, no further needs and will continue to monitor.
[2019-02-20 06:11] LABS: BASOPHILS 0 % (0-2); EOSINOPHILS 0 % (0-7); HEMATOCRIT 39.7 % (36.0-48.0); HEMOGLOBIN 13.5 g/dL (12-16); IMMATURE GRANULOCYTES 0.4 % (0-5); LYMPHOCYTES 4.4 % (15-50); MCH 31.6 pg (26.0-34.0); MEAN PLATELET VOLUME 10.3 fL (7.4-10.4); MONOCYTES 4.3 % (2-11); NEUTROPHILS 90.9 % (40-80); RBC 4.27 10x6/uL (4.00-5.40); RDW 14.2 % (11.5-14.5)
[2019-02-20 06:31] LABS: ALBUMIN 3.2 g/dL (3.4-5.0); BILIRUBIN - TOTAL 0.44 mg/dL (0.2-1.3); CARBON DIOXIDE 23.9 mmol/L (21.0-32.0); CREATININE - SERUM 1.2 mg/dL (0.6-1.3); MAGNESIUM - SERUM 1.9 mg/dL (1.8-2.4); PHOSPHOROUS 2.7 mg/dL (2.5-4.9); PROTEIN - SERUM 6.5 g/dL (6.4-8.2)
[2019-02-20 06:35] LABS: ANION GAP 14.4 mmol/L (8-16); POTASSIUM - SERUM 4.3 mmol/L (3.5-5.1)
[2019-02-20 07:04] LABS: PLATELET COUNT 169 10x3/uL (130-400); WBC 18.7 10x3/uL (4.8-10.8)
--- NOTE | 2019-02-20 09:48 | NUR ---
0700 PT RECIEVED ALERT, SPEECH GARBLED, LUE FLACCID LLE WEAK, ABLE TO FOLLOW COMMANDS, RLE CAST IN PLACE, PULSE PALP/WEAK, R HAND PIV PATENT, TAYLOR DRAINING YELLOW URINE, CALL LIGHT WITHIN REACH AND ABLE TO USE, 0900 REPOSITIONED, AWAITING SPEECH SWALLOW EVAL, SPOKE WITH JORGE SINGH
--- NOTE | 2019-02-20 14:10 | NUR ---
1100 TOTAL BED BATH, BRUSHED HAIR, LINEN CHANGE, 1200 ATTEMPTED TO ASSIST WITH LUNCH AND PT REFUSED REPOSITIONED EVERY 2 HOURS, PT REFUSES TO ROLL FROM SIDE TO SIDE AND PULLS PILLOW OUT WHEN REPOSITIONED SO IS REPOSITIONED BY TURNING BED. PT PUSHES WITH HEELS INTO BED TO MOVE UP OR TO THE SIDES, DISCUSSED TO NOT DO SO AND ALLOW STAFF TO REPOSITION DUE TO ANKLE AND PT IS UNABLE TO UNDERSTAND AND CONTINUES TO DO SO, ORTHO AWARE.
--- NOTE | 2019-02-20 17:36 | NUR ---
1500 rEPOSITIONED 1700 TOTAL ASSIST WITH DINNER, ATE PUDDING AND PART OF SOUP
--- NOTE | 2019-02-20 20:38 | MORECARE ---
CASE MANAGEMENT DISCHARGE SUMMARY PATIENT: DAMEON JAIME UNIT: [id number] ADM DATE: 02/18/19 AGE: 68 : 51 SEX: F ROOM/BED: [facility] AUTHOR: ADENIKE ROLON PHYSICIAN: REFERRING PHYSICIAN: MURIEL TAVARES MD DATE OF SERVICE: 02/20/19 Discharge Plan Patient Name: DAMEON JAIME Facility: [facility]:[place] : 1950 Planned Disposition: Assisted Facility Anticipated Discharge Date: Discharge Date: Expected LOS: Initial Reviewer: [email or web address] Initial Review Date: 02/20/2019 Generated: 02/20/19 9:37 pm DCPIA - Discharge Planning Initial Assessment Updated by [email or web address]: Maame Coello on 02/20/19 8:34 pm * ADLs Independent Patient Name: DAMEON JAIME Page 41062 at 2037 All edits/amendments must be made on the electronic document DICTATION DATE: 02/20/192036 FORESTRY AID: STEPHANIE 02/20/192036 RPT#: [id number] DC DATE: STATUS: ADM IN [facility] [address] [place] [address] END OF REPORT
--- NOTE | 2019-02-20 20:50 | MORECARE ---
CASE MANAGEMENT DISCHARGE SUMMARY PATIENT: DAMEON JAIME UNIT: [id number] ADM DATE: 02/18/19 AGE: 68 : 51 SEX: F ROOM/BED: [facility] AUTHOR: ADENIKE ROLON PHYSICIAN: REFERRING PHYSICIAN: MURIEL TAVARES MD DATE OF SERVICE: 02/20/19 Discharge Plan Patient Name: DAMEON JAIME Facility: [facility]:[place] : 1950 Planned Disposition: [facility] Facility Anticipated Discharge Date: Discharge Date: Expected LOS: Initial Reviewer: [email or web address] Initial Review Date: 02/20/2019 Generated: 02/20/19 9:50 pm DCPIA - Discharge Planning Initial Assessment Updated by [email or web address]: Maame Coello on 02/20/19 8:45 pm * PCP Jay * [facility] * Preadmission Environment Home with Family * ADLs Independent * List name and contact numbers for known caregivers / representatives who currently or will assist patient after discharge: TERRA LA [facility] [phone] * Verbal permission to speak to the caregivers and representatives has been obtained from the patient. Yes * Community resources currently utilized None * Additional services required to return to the preadmission environment? No * Can the patient safely return to the preadmission environment? Yes * Has this patient been hospitalized within the prior 30 days at any hospital? No Last DP export: 02/20/19 7:38 pm Patient Name: DAMEON JAIME Page 78551 at 2049 All edits/amendments must be made on the electronic document DICTATION DATE: 02/20/192049 BALL ROLLING MACHINE OPERATOR: STEPHANIE 02/20/192049 RPT#: [id number] DC DATE: STATUS: ADM IN [facility] [address] [place] [address] END OF REPORT
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
--- NOTE | 2019-02-20 23:54 | NUR ---
1900 PT ASSESSMENT COMPLETED AT THIS TIME. PT ALERT AND FOLLOWING COMANDS, PT ASKING QUESTIONS. SPEECH SLURRED BUT UNDERSTANDABLE. PT DENIES COMPLAINTS AT THISMT TIME. WILL CONT TO MONITOR FOR CHANGES. 2100 PT GIVEN 2100 MEDS AT THIS TIME WITH APPLE SAUCE, PT TOOK MEDS WITHOUT PROBLEMS AND STATED THAT SHE LIKED APPLE SAUCE. 2300 PT REASSESSMENT COMPLETED AT THIS TIME. PT LARET AND AWAKE, NIO DISTRESS NOTED. PT DENIED COMPLAINTS OR CONCERNS, PT ASKING IF HER FAMILY WAS COMING TO SEE HER, NURSE ADVISED THAT HER FRIEND MIGHT COME IN THE MORNING. PT WAS ABLE TO MOVE LEFT ARM AND FOOT MORE THAN EARLIER. PT HAS DECREASED SENSATION TO LEFT SIDE. WITH NO FINE MOTOR CONTROL NOTED. WILL CONT TO MONITOR FOR CHANGES
[2019-02-21] VITALS (25 sets, daily range): BP systolic 118–173; BP diastolic 59–96
--- NOTE | 2019-02-21 01:09 | NUR ---
0100 PT RESTING IN BED WATCHING TV AT THIS TIME, NO DISTRESS NOTED, WILL CONT. TO MONITOR
--- NOTE | 2019-02-21 03:31 | NUR ---
0308 PT HAD REMOVED IV FROM HAND, BLEEDING CONTROLLED AT THIS TIME, CATH INTACT, DRESSING PLACED OVER SITE. IV RESITED TO RIGHT FORARM TIMES 2 ATTEMPTS, PT ANTOINE WELL.
--- NOTE | 2019-02-21 05:28 | NUR ---
0520 FSBS 192 ENETERED IN ERROR, VERIFIED BY CAMILO FRANKLIN
[2019-02-21 06:11] LABS: BASOPHILS 0 % (0-2); EOSINOPHILS 0 % (0-7); HEMATOCRIT 37.5 % (36.0-48.0); HEMOGLOBIN 12.8 g/dL (12-16); IMMATURE GRANULOCYTES 0.4 % (0-5); MCH 31.2 pg (26.0-34.0); MCHC 34.1 g/dL (31.0-37.0); MCV 91.5 fL (80.0-100.0); MEAN PLATELET VOLUME 10.9 fL (7.4-10.4); NEUTROPHILS 92.6 % (40-80); PLATELET COUNT 176 10x3/uL (130-400); RDW 13.7 % (11.5-14.5)
[2019-02-21 06:13] LABS: WBC 13.5 10x3/uL (4.8-10.8)
[2019-02-21 06:44] LABS: ALBUMIN 2.9 g/dL (3.4-5.0); ANION GAP 12.8 mmol/L (8-16); BILIRUBIN - TOTAL 0.54 mg/dL (0.2-1.3); CALCIUM 8.6 mg/dL (8.5-10.1); MAGNESIUM - SERUM 1.6 mg/dL (1.8-2.4); PHOSPHOROUS 2.4 mg/dL (2.5-4.9); POTASSIUM - SERUM 3.8 mmol/L (3.5-5.1); PROTEIN - SERUM 5.9 g/dL (6.4-8.2)
--- NOTE | 2019-02-21 08:52 | NUR ---
0700 PT RECIEVED ALERT, ORIENTED TO PERSON AND PLACE, REORIENTED, ON ROOM AIR, RFA PIV WITH 1/2NS 50ML/HR AND MAG INFUSING, TAYLOR DRAINING CONCENTRATED URINE, RLE ANKLE WITH ANNA WRAP IN PLACE, ELEVATED ON PILLOW,L ARM WEAKNESS NOTED, UNABLE TO PERFORM HAND QUILL WORKER BUT IS ABLE TO MOVE ON OWN SOMEWHAT, R ARM ABLE TO FOLLOW COMMANDS, LLE ABLE TO MOVE INDEPENDENTLY AND FOLLOW COMMANDS THOUGH WEAK AND SLOW WITH MOVEMENT, RLE PULSES PALPABLE, ABLE TO MOVE, NO EDEMA NOTED. 0845 ABLE TO FEED SELF BREAKFAST WITH MINIMAL SET UP, AM MEDS GIVEN, SPOKE WITH DR TAVARES WHO IS AWARE OF HOLDING IMDUR DUE TO INABILITY TO CRUSH, OKAY TO CHANGE SLIDING SCALE TO ACHS AND TO CONSULT PT/OT
--- NOTE | 2019-02-21 12:48 | NUR ---
0930 BED BATH WITH LINEN CHANGE, HAIR AND TEETH BRUSHED 1100 FED SELF LUNCH TRAY 1230 DAUGHTER CALLED FOR UPDATE
--- NOTE | 2019-02-21 18:14 | NUR ---
1500 REPOSITIONED 1700 FED SELF DINNER 1730 ATTEMPTING TO GET OUT OF BED, WHEN ASKED WHAT SHE WAS DOING/WHERE SHE WAS GOING SHE STATED "GOING TO BED" TOLD SHE WAS IN BED AND SHE BEGAN LAUGHING, WAS ASSISTED BACK TO BED.
--- NOTE | 2019-02-21 19:30 | NUR ---
REPORT REC'D AND ARE ASSUMED, REC'D PT AWAKE, ALERT, AND ORIENTED TO PERSON AND PLACE ONLY, REORIENTS EASILY, SPEECH SLURRED AND GARBLED AT TIMES, RIGHT ORBIT AND SIDE OF FACE WITH BRUISES, PT STATES " I FELL BIG TIME" RIGHT FOREARM PIV WITH 1/2 NS @ 50CC/HR, BILAT LOWER EXT'S WITH BRUISES AND SCABS, TAYLOR PATENT DRAINING CONCENTRATED URINE, RIGHT LOWER EXT ANNA WRAP AND SPLINT ON, LOOSE AT FOOT FROM PT RUBBING FOOT ON BED, PREVIOUS SHIFT ATTEMPTED TO WRAP A PILLOW AROUND IT TO PROTECT IT, BUT PT KICKED IT OFF, PT SLOW TO USE LEFT ARM, MANAGER ENGINE MUCH WEAKER THAN RIGHT, ABLE TO ACCOUNTANT CERTIFIED PUBLIC LEFT LEG AND WIGGLE TOES ETC., PT DENIES PAIN OR NEEDS, BED IN LOW POSITION, CALL LIGHT IN REACH, VISIBLE TO NURSES STATION.
--- NOTE | 2019-02-21 20:00 | NUR ---
PT UNABLE TO COMPLETE SUICIDE RISK SCREENING DUE TO CONFUSION.
--- NOTE | 2019-02-21 21:00 | NUR ---
EVENING MEDS GIVEN WITHOUT DIFFICULTY, PT ASKING ABOUT CELL PHONE AND BOYFRIEND UNIQUE WONDERING WHERE HE IS, PT CONFUSED AT TIMES AND THINKS SHE IS AT HOME, REORIENTS EASILY, WILL CONT TO MONITOR FOR CHANGES.
--- NOTE | 2019-02-21 22:30 | NUR ---
PT RESTLESS PULLING AT EQUIPMENT, REORIENTED TO TIME AND PLACE, ASSISTED PT TO REPOSITION FOR COMFORT, PT COMPLAINS OF HEADACHE, LIGHTS TURNED OFF IN ROOM FOR PT COMFORT, SR UP X 2 , BED ALARM ON, VISIBLE TO NURSES STATION.
--- NOTE | 2019-02-21 23:30 | NUR ---
REASSESSMENT COMPLETED, PT REMAINS CONFUSED, EMOTIONALLY LABILE AT TIMES, BP ELEVATED, DECADRON 6MG GIVEN SLOW IVP ORDERED, ASSISTED PT TO FIND SOMETHING TO WATCH ON TV, WILL MONITOR CLOSELY FOR CHANGES
[2019-02-22] VITALS (20 sets, daily range): BP systolic 96–185; BP diastolic 38–94
--- NOTE | 2019-02-22 00:44 | NUR ---
BP 185/87, 10MG APRESOLINE GIVEN SLOW IVP FOR SBP GREATER THAN 170.
--- NOTE | 2019-02-22 01:00 | NUR ---
PT REMOVED BP CUFF AND IS PULLING AT TELEMETRY AND OTHER CABLES, REORIENTED PATIENT AT THIS TIME AND INSTRUCTED SHE MUST LEAVE MONITORING EQUIPMENT ON, STATES "OKAY", RIGHT LEG ELEVATED ON PILLOW, PT DENIES OTHER NEEDS, SR UP X 2, CALL LIGHT IN REACH.
--- NOTE | 2019-02-22 03:00 | NUR ---
REASSESSMENT COMPLETED, PT HAS REMAINED AWAKE ALL NIGHT WHEN ENCOURAGED TO REST STATES " I WILL TRY", CONTINUES TO PULL AT LINES AN TUBING INTERMITTENTLY, REDIRECTS EASILY, BP STABLE, VISIBLE TO NURSES STATION.
--- NOTE | 2019-02-22 05:00 | NUR ---
CHG BATH AND COMPLETE LINEN CHANGE PROVIDED, PT COMBED HAIR, REPOSITIONED UP IN BED FOR COMFORT, TAYLOR CARE PROVIDED, RIGHT LEG ELEVATED ON PILLOW, WARM BLANKET PROVIDED, PT REQUESTING MILK, MILK PROVIDED, PT DENIES FURTHER NEEDS.
[2019-02-22 05:46] LABS: HEMATOCRIT 39.7 % (36.0-48.0); HEMOGLOBIN 13.8 g/dL (12-16); LYMPHOCYTES 5.1 % (15-50); MCH 31.7 pg (26.0-34.0); MCHC 34.8 g/dL (31.0-37.0); MCV 91.1 fL (80.0-100.0); MEAN PLATELET VOLUME 10.5 fL (7.4-10.4); NEUTROPHILS 92.9 % (40-80); PLATELET COUNT 174 10x3/uL (130-400); RBC 4.36 10x6/uL (4.00-5.40); RDW 13.5 % (11.5-14.5); WBC 10.4 10x3/uL (4.8-10.8)
[2019-02-22 06:01] LABS: ALBUMIN 3.2 g/dL (3.4-5.0); ANION GAP 11.8 mmol/L (8-16); BILIRUBIN - TOTAL 0.6 mg/dL (0.2-1.3); CALCIUM 8.9 mg/dL (8.5-10.1); CREATININE - SERUM 1.1 mg/dL (0.6-1.3); PHOSPHOROUS 2.4 mg/dL (2.5-4.9); POTASSIUM - SERUM 3.8 mmol/L (3.5-5.1); PROTEIN - SERUM 6.3 g/dL (6.4-8.2)
--- NOTE | 2019-02-22 06:31 | NUR ---
SERUM BS 251, 6 UNITS HUMALOG GIVEN PER SLIDING SCALE, PT RESTING QUIETLY IN BED WATCHING TV, BP STABLE, SR UP X 2, BED IN LOW POSITION, CALL LIGHT IN REACH.
--- NOTE | 2019-02-22 08:33 | NUR ---
0800-PT ABLE TO USTILIZE R ARM/HAND AND MANAGE UTENSILS-50% BREAKFEST INTAKE WITH OUT ADDITIONAL ASSIST REQUIRED-ON COMPLETETION-PT PUSHED TRAY OFF TABLE AND ATTEMPTED TO CLIMB OUT OF BED -GOAL WAS TO FIND TELEPHONE-NO HARM RECIEVED BY PT AND PT TRANSFERED TO [facility] CLOSER PROXIMITY TO NURSES DESK- 0830-AM MED GIVEN WITH THIN LIQUID-FOLLOWED BY HARD COUGHING-RECONSULT SPEECH THERAPY-VERBAL ARTICULATION IMPROVED-COMMUNICATION IMPROVED
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
--- NOTE | 2019-02-22 14:46 | NUR ---
Rehab Note- Acute Inpatient Rehab prescreen ordered on 02/20, spoke with JOZEF Young 02/22. The patient has [employer] insurance & will require a PreAuth prior to a Inpatient Acute Rehab stay. Will begin PreAuth process. Thank you for this referral! Rola Parisi RN Clinical Liaison, [facility] Rehab
--- NOTE | 2019-02-22 15:05 | NUR ---
PT IN BED AND FOUND AT END OF BED-FOUND IV OUT-TIP INTACT-TAYLOR CATH CARE DONE AND REPOSITIONED
--- NOTE | 2019-02-22 18:36 | NUR ---
FOUND IV OUT-PT HAD NO RECALL OF REMOVING-PT BECAME TEARFUL AND REQUESTED FOR "UNIQUE" TO TAKE HER HOME-REFERRED TO HIM HER - 1750-L PERIPHERAL IV STARTED WITH 22 FOLLOWING 3 ATTEMPTS-PT ABLE TO TALK ABOUT HER DOG-CORRECTLY NAMES HIM AND BREED OF DOG-ABLE TO BOX MAKER WITH L HAND
--- NOTE | 2019-02-22 20:14 | NUR ---
PT RECEIVED WITH EYES OPEN WATCHING TV. NO S/S OF DISTRESS. VSS. NO COMPLAINTS OF PAIN. SOME MOVEMENT TO LEFT SIDE NOTED. RIGHT FOOT ELEVATED. TAYLOR PATENT WITH PINK TINT URINE NOTED. PT ALERT AND ORIENTED TO PLACE, CLOSE ON TIME AND DATE, PERSON. IMAGING SEEN PT FOR KUB, ASSIST GIVEN WITH POSITIONING, PT TOLERATED WELL. WILL CONTINUE TO OBSERVE. CALL LIGHT IN REACH.
--- NOTE | 2019-02-22 22:01 | NUR ---
RECEIVED SCHEDULED MEDICATIONS PER MAR, TOLERATED WELL. NO CONCERNS NOTED AT THIS TIME. CALL LIGHT IN REACH. WILL CONTINUE TO OBSERVE.
--- NOTE | 2019-02-22 23:41 | NUR ---
REASSESSMENT COMPLETED, SEE FLOW SHEET. CALL LIGHT IN REACH. WILL CONTINUE TO OBSERVE.
[2019-02-23] VITALS (12 sets, daily range): BP systolic 103–176; BP diastolic 48–93
--- NOTE | 2019-02-23 00:26 | NUR ---
PT WITH EYES OPEN, ASK IF READY FOR BATH AND AGREED. CHG BATH GIVEN WITH COMPLETE LINEN CHANGE. PT TOLERATED WELL. CALL LIGHT IN REACH. WILL CONTINUE TO OBSERVE.
--- NOTE | 2019-02-23 01:34 | NUR ---
B/P >170 WITH PRN APPRESSALINE GIVEN PER MAR. TOLERATED WELL. WILL CONTINUE TO OBSERVE.
--- NOTE | 2019-02-23 03:59 | NUR ---
REASSESSMENT COMPLETED, SEE FLOW SHEET.
[2019-02-23 04:16] LABS: BASOPHILS 0 % (0-2); EOSINOPHILS 0 % (0-7); HEMATOCRIT 37.2 % (36.0-48.0); HEMOGLOBIN 13.1 g/dL (12-16); IMMATURE GRANULOCYTES 0.2 % (0-5); LYMPHOCYTES 5.7 % (15-50); MCH 31.3 pg (26.0-34.0); MCHC 35.2 g/dL (31.0-37.0); MEAN PLATELET VOLUME 11.1 fL (7.4-10.4); MONOCYTES 3.8 % (2-11); NEUTROPHILS 90.3 % (40-80); PLATELET COUNT 161 10x3/uL (130-400); RBC 4.19 10x6/uL (4.00-5.40); RDW 13.2 % (11.5-14.5)
[2019-02-23 04:24] LABS: MCV 88.8 fL (80.0-100.0)
[2019-02-23 04:38] LABS: ANION GAP 10.5 mmol/L (8-16); BILIRUBIN - TOTAL 0.54 mg/dL (0.2-1.3); CALCIUM 8.9 mg/dL (8.5-10.1); CARBON DIOXIDE 28.4 mmol/L (21.0-32.0); CREATININE - SERUM 1.1 mg/dL (0.6-1.3); MAGNESIUM - SERUM 1.9 mg/dL (1.8-2.4); PHOSPHOROUS 2.8 mg/dL (2.5-4.9); POTASSIUM - SERUM 3.9 mmol/L (3.5-5.1); PROTEIN - SERUM 6.1 g/dL (6.4-8.2)
--- NOTE | 2019-02-23 06:34 | NUR ---
BLEEDING NOTED TO RIGHT FOOT. HEEL NOTED WITH BLOOD SEEPING THROUGH DRESSING. H&H STABLE. ATTEMPTED TO CALL ORTHO OFFICE AND RECEIVED BUSY SIGNAL X4. WILL CONTINUE TO OBSERVE.
--- NOTE | 2019-02-23 07:00 | NUR ---
PT RECIEVED IN BED ALERT, CONFUSED, REORIENTED, LUE WEAK, FOLLOWS COMMANDS AFTER BEING REPEATED SEVERAL TIMES BUT ABLE TO SCRAP DEALER WEAKLY, LLE ABLE TO FOLLOW COMMANDS, RLE AND RUE ABLE TO FOLLOW COMMANDS, L WRIST PIV SL, RLE ANNA WRAP/SPLINT IN PLACE, DRIED BLOOD PRESENT, PULSE PALPABLE, TAYLOR DRAININGYELLOW URINE, CALL LIGHT WITHIN REACH
--- NOTE | 2019-02-23 07:44 | NUR ---
CALLED MONSERRAT MAZARIEGOS AND LEFT MESSAGE TO RETURN CALL ABOUT BLEEDING NOTED TO RLE
--- NOTE | 2019-02-23 08:15 | NUR ---
RECIEVED CALL FROM MONSERRAT MAZARIEGOS, NOTIFIED OF BLEEDING FROM RLE DURING NIGHT
--- NOTE | 2019-02-23 08:29 | NUR ---
CALLED DR ENG ABOUT HR 58-62, STATED OK TO GIVE ALL MEDS OK TO TRANSFER TO FLOOR
--- NOTE | 2019-02-23 10:08 | NUR ---
assisted up to chair by pt, alarm on chair
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
--- NOTE | 2019-02-23 11:06 | NUR ---
Nutrition Follow-up: Noted ST consulted 2/2 coughing hard following water. Diet: Diabetic; pureed with thin liquids PO intake: 50% for breakfast & 25% for dinner yesterday Wt: 150# No BMs documented Labs noted: Alb 3.0, Glu 224 Meds noted: Humalog, Colace, NS 0.45% @ 50 mL/hr Rec cardiac carb consistent diet with ST recs. Offer nutrition supplements. [place] food preferences within diet restrictions. RD following.
--- NOTE | 2019-02-23 11:27 | NUR ---
REPORT CALLED PT MOVING TO ROOM 2230, ATTEMPTED TO NOTIFY DAUGHTER
--- NOTE | 2019-02-23 11:45 | NUR ---
RECEIVED PT FROM CVICU VIA WHEELCHAIR ACCOMPAINIED BY PHYSICAL THERAPY AND STAFF. NO C/O PAIN. NO S/S OF ACUTE DISTRESS NOTED. PT HAS PERIODS OF WEEPING AND LAUGHING, NONCONGRUENT WITH MOOD. LEFT SIDED WEAKNESS. NON WEIGHT BEARING ON RIGHT FOOT, ORIF OF ANKLE. IV TO LEFT FOREARM, SITE PATENT WITHOUT REDNESS OR SWELLING. SLURRED SPEECH. PT DENIES ANY NEEDS. WILL CONTINUE TO MONITOR. CALL LIGHT IN REACH.
--- NOTE | 2019-02-23 14:43 | NUR ---
Rehab Note- Called to begin PreAuth earlier to [employer]- after cecile 40minutes on the call Josephine Galvan stated she was unable to start a PreAuth for me & would transfer me to another # that the call disconnected. Called the # provided of [phone], spoke with Sepideh with [employer] to attempt to get a PreAuth started & along with verifying the patient demographics the address that is on the patient's face sheet here at the hospital and [facility] do not match & is needed to be verified throught the [employer] web portal- unable to begin PreAuth process without this being done- ended call with [employer]. Called and left voicemail for Sera with our business office of what was needed per [employer]. Will continue to follow at this time. Thank you for this referral! Rola Parisi RN Clinical Liaison, [facility] Rehab
--- NOTE | 2019-02-23 15:27 | NUR ---
I have reviewed this patient and I concur with the Shift Assessment completed by the Licensed Practical Nurse today this shift.
--- NOTE | 2019-02-23 20:00 | NUR ---
RESTING IN BED EYES CLOSED, AROUSED EASILY TO VOICE, DENIES PAIN, SEE SHIFT ASSESSMENT, ANNA WRAP AND CAST TO RIGHT ANKLE, TAYLOR CATH DRAING YELLOW URINE, CALL LIGHT IN REACH
[2019-02-24] VITALS: BP 115/71
[2019-02-24 04:00] VITALS: BP 134/68
[2019-02-24 06:57] LABS: BASOPHILS 0 % (0-2); EOSINOPHILS 0.2 % (0-7); HEMATOCRIT 36.6 % (36.0-48.0); HEMOGLOBIN 12.8 g/dL (12-16); IMMATURE GRANULOCYTES 0.3 % (0-5); LYMPHOCYTES 10.6 % (15-50); MCH 31.1 pg (26.0-34.0); MCV 88.8 fL (80.0-100.0); MEAN PLATELET VOLUME 11.2 fL (7.4-10.4); MONOCYTES 10.2 % (2-11); NEUTROPHILS 78.7 % (40-80); PLATELET COUNT 157 10x3/uL (130-400); RBC 4.12 10x6/uL (4.00-5.40); RDW 13.1 % (11.5-14.5)
[2019-02-24 07:17] LABS: ANION GAP 12.9 mmol/L (8-16); CALCIUM 8.7 mg/dL (8.5-10.1); CARBON DIOXIDE 26.6 mmol/L (21.0-32.0); CREATININE - SERUM 1.2 mg/dL (0.6-1.3); POTASSIUM - SERUM 3.5 mmol/L (3.5-5.1)
--- NOTE | 2019-02-24 07:20 | NUR ---
PT RESTING IN BED, EYES CLOSED. AROUSES TO VOICE. SPEECH SLURRED. LEFT SIDE FLACCID. NO C/O PAIN. NO S/S OF ACUTE DISTRESS NOTED. PT DENIES ANY NEEDS. CALL LIGHT IN REACH. FALL PRECAUTIONS IN PLACE. WILL CONTINUE TO MONITOR.
[2019-02-24 07:29] LABS: WBC 11.6 10x3/uL (4.8-10.8)
[2019-02-24 08:59] VITALS: BP 147/70
[2019-02-24 13:11] VITALS: BP 106/56
--- NOTE | 2019-02-24 14:30 | NUR ---
CHANGED ANNA BANDAGE ON PATIENTS RIGHT ANKLE, SOFT CAST STILL INTACT. ANNA WRAP WAS SATURATED WITH DRIED BLOOD.
--- NOTE | 2019-02-24 14:40 | OP ---
PATIENT NAME: DAMEON JAIME MEDICAL RECORD: [id number] :52 LOCATION:[id number] ADMISSION DATE:02/18/19 SURGEON: RIMA CARABALLO MD DATE OF OPERATION: 02/19/2019 PREOPERATIVE DIAGNOSIS: Right bimalleolar ankle fracture. POSTOPERATIVE DIAGNOSIS: Right bimalleolar ankle fracture. PROCEDURE: Open reduction internal fixation of right bimalleolar ankle fracture. SURGEON: Rima Caraballo MD COOKER TENDER: MILES Quinn IMPLANTS USED: Arthrex ankle fracture system. OPERATIVE SUMMARY IN DETAIL: After obtaining the appropriate preoperative orthopedic surgery consent as well as anesthetic consultation, evaluation and clearance, the patient was brought to the operating room and placed on the operating table in supine position. After general laryngeal mask airway was administered, tourniquet was placed about the proximal aspect of the right lower extremity. The right lower extremity was then prepped and draped in routine sterile fashion. At this point, the appropriate preoperative timeout was taken including patient identifiers, the appropriate operative side, as well as medications and allergies. This was agreed upon by all in the operative suite. The leg was elevated and exsanguinated, tourniquet was inflated to 350 of mmHg. Attention was first turned to the lateral malleolus, it had a segmental fracture. This was reduced, provisionally pinned after all hematoma was evacuated. At this point, the fibular plate from Arthrex was placed under fluoroscopic guidance. Serial and sequential drill and fill was done with both combination of locking and nonlocking screws. This resulted in anatomic latter day of the fibular side. The incision was made over the medial malleolar aspect and the medial malleolar aspect was debrided of all hematoma. It was held in place with a K-wire and then 2 malleolar screws were placed under fluoroscopic guidance resulting in anatomic latter day of the medial aspect. Wounds were copiously irrigated and closed in usual fashion by Gildardo Bansal with a combination of #1 Vicryl, 2-0 Vicryl and skin wili. Sterile dressings were applied. Tourniquet was deflated and then an L&U splint was applied. The patient was awakened, taken to recovery in stable condition. All final needle and sponge counts were correct. TRANSINT:[id number] Voice Confirmation ID: [id number] DOCUMENT ID: [id number] RIMA CARABALLO MDIN at 1440 CC: [id number] DICTATION DATE: 02/24/19831 HEEL PACKER: 02/24/19 1213 ADM IN [facility] [address] [id number]
--- NOTE | 2019-02-24 14:46 | NUR ---
I have reviewed this patient and I concur with the Shift Assessment completed by the Licensed Practical Nurse today this shift.
--- NOTE | 2019-02-24 15:04 | NUR ---
Rehab Note- PreAuth started with [facility] after address validation after spoke with Sera in the business office. Clinicals faxed for review for possible acute inpatient rehab stay. Will follow at this time. Thank you for this referral! Rola Parisi RN Clinical Liaison, [facility] Rehab
[2019-02-24 16:04] LABS: APPEARANCE CLEAR (CLEAR); BACTERIA FEW /hpf (NONE SEEN); BILIRUBIN NEGATIVE (NEGATIVE); COLOR YELLOW (YELLOW); EPITHELIAL CELLS 0-5 /hpf (0-5); GLUCOSE 1000 mg/dL (NEGATIVE); KETONE NEGATIVE (NEGATIVE); NITRITE NEGATIVE (NEGATIVE); PROTEIN NEGATIVE (NEGATIVE); RED CELLS - URINE 25-50 /hpf (0-5); SPECIFIC GRAVITY 1.025 (1.005-1.020); UROBILINOGEN NORMAL (NORMAL); WHITE CELLS - URINE 0-5 /hpf (0-5)
[2019-02-24 16:44] VITALS: BP 94/46
--- NOTE | 2019-02-24 19:02 | NUR ---
PT RESTING IN BED, WATCHING TV. NO C/O PAIN. NO S/S OF ACUTE DISTRESS NOTED. CALL LIGHT IN REACH. FALL PRECAUTIONS IN PLACE. WILL CONTINUE TO MONITOR.
[2019-02-24 20:00] VITALS: BP 119/74
[2019-02-25] VITALS: BP 136/76
--- NOTE | 2019-02-25 05:03 | NUR ---
PT RESTING IN BED. EYES CLOSED. NO SIGNS OF DISTRESS. BREATHING EVEN AND UNLABRORED. IV SITE RT HAND DRESSING CLEAN DRY AND INTACT. NO SIGNS OF INFECTION. SKIN CLEAN DRY AND INTACT. BOWEL SOUNDS ACTIVE. RT ANKLE DRESSING CLEAN DRY AND INTACT. WILL CONTINUE PLAN OF CARE. CALL LIGHT IN REACH. BED LOWERED AND LOCKED. BED RAILS UP X2.
[2019-02-25 05:44] LABS: BASOPHILS 0 % (0-2); EOSINOPHILS 0.8 % (0-7); HEMATOCRIT 36.8 % (36.0-48.0); HEMOGLOBIN 12.8 g/dL (12-16); IMMATURE GRANULOCYTES 0.3 % (0-5); LYMPHOCYTES 15.7 % (15-50); MCH 31.2 pg (26.0-34.0); MCHC 34.8 g/dL (31.0-37.0); MCV 89.8 fL (80.0-100.0); MEAN PLATELET VOLUME 11.2 fL (7.4-10.4); MONOCYTES 8.4 % (2-11); NEUTROPHILS 74.8 % (40-80); PLATELET COUNT 163 10x3/uL (130-400); RDW 13.3 % (11.5-14.5); WBC 11.9 10x3/uL (4.8-10.8)
[2019-02-25 06:11] LABS: ANION GAP 13.1 mmol/L (8-16); CALCIUM 8.7 mg/dL (8.5-10.1); CARBON DIOXIDE 27.6 mmol/L (21.0-32.0); CREATININE - SERUM 1.3 mg/dL (0.6-1.3); POTASSIUM - SERUM 3.7 mmol/L (3.5-5.1)
--- NOTE | 2019-02-25 06:19 | NUR ---
PT IS WITHOUT DISTRESS.CALL LIGHT IN REACH
--- NOTE | 2019-02-25 07:43 | NUR ---
RECIEVED REPORT. PATIENT IS ALERT AND ORIENTED. HER SPEECH IS SLIGHTLY SLURRED. SHE IS CHEERFUL AND STATES THAT SHE WANTS TO GO HOME. DENEIS ANY NEEDS AT THIS TIME.
[2019-02-25 09:11] VITALS: BP 112/65
[2019-02-25 12:47] VITALS: BP 94/46
--- NOTE | 2019-02-25 15:07 | NUR ---
OT NOTE: PT IS CONFUSED AND DOES NOT FOLLOW LE PRECAUTIONS. PT COMPLETED BED MOB AND TRANSFER WITH YESICA Sheth. PT COMPLETED FACE WASHING WITH SET UP AND HYGIENE TASK WITH DONATO Sheth. THANK YOU, KAREN RICKS
[2019-02-25 17:01] VITALS: BP 135/67
--- NOTE | 2019-02-25 17:31 | NUR ---
PATIENT IS RESTING QUIETLY IN BED AT THIS TIME. SHE IS DENING ANY NEEDS AT THIS TIME.
--- NOTE | 2019-02-25 18:17 | NUR ---
PATIENT PULLED OUT HER IV IN HER RIGHT HAND. CATHETER INTACT. IV ATTEMPTED IN LEFT FOREARM, HOWEVER THE VEIN BLEW, AND APPLIED PRESSURE FOR 5 MINUTES TO REDUCE BRUISING. ATTEMPTED IN THE RIGHT HAND AND WAS UNABLE TO OBTAIN ACCESS. ANOTHER NURSE IS GOING TO ATTEMPT AN IV NOW.
--- NOTE | 2019-02-25 20:04 | NUR ---
PATIENT IS RESTING IN BED IV IN LEFT FR WITH NS AT 50ML/HR INFUSING. RIGHT ANKLE WITH SOFT CAST IN PLACE. NON WT. BEARING, UP WITH PT ONLY. NO NEEDS NOTED AT THIS TIME, CALL LIGHT AND WATER IN REACH, BED LOW. CHECKED OFTEN FOR NEEDS AND SAFETY.
[2019-02-26 04:00] VITALS: BP 146/68
[2019-02-26 05:52] LABS: BASOPHILS 0 % (0-2); HEMATOCRIT 35.8 % (36.0-48.0); HEMOGLOBIN 12.6 g/dL (12-16); IMMATURE GRANULOCYTES 0.5 % (0-5); LYMPHOCYTES 14.4 % (15-50); MCH 31.2 pg (26.0-34.0); MCHC 35.2 g/dL (31.0-37.0); MCV 88.6 fL (80.0-100.0); MEAN PLATELET VOLUME 11.2 fL (7.4-10.4); MONOCYTES 8.1 % (2-11); PLATELET COUNT 147 10x3/uL (130-400); RBC 4.04 10x6/uL (4.00-5.40); RDW 13.3 % (11.5-14.5); WBC 10.8 10x3/uL (4.8-10.8)
[2019-02-26 06:10] LABS: ANION GAP 12.2 mmol/L (8-16); CALCIUM 8.4 mg/dL (8.5-10.1); CARBON DIOXIDE 25.9 mmol/L (21.0-32.0); CREATININE - SERUM 1.2 mg/dL (0.6-1.3); POTASSIUM - SERUM 4.1 mmol/L (3.5-5.1)
--- NOTE | 2019-02-26 07:40 | NUR ---
PT RESTING IN BED WITH EYES OPEN. IV LOCATED TO LEFT FOREARM RUNNING NS@50 ML/HR. ALERT AND ORIENTED BUT COMMUNICATION IS SLOW, AND YOU HAVE TO TAKE YOUR TIME WHILE TALKING TO HER AND WAITING FOR RESPONSE. TAYLOR CATH NOTED PUTTING OUT CLEAR YELLOW URINE. BREATHING IS EVEN AND NONLABORED. DENIES ANY NEEDS AT THIS TIME. BED LOW, CALL LIGHT IN REACH, RAILS UP X 2. WILL CONTINUE TO MONITOR.
[2019-02-26 09:15] VITALS: BP 150/70
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
[2019-02-26 13:10] VITALS: BP 96/52
--- NOTE | 2019-02-26 13:20 | NUR ---
Rehab Note- Have left voicemails x2 today for Obed, CLinical Reviewer for [facility] with no return call. Called the main [facility] phone line & promted through to check staus of pending auth- spoke with Rio- stated that they had all information & was with the clinical reviewer & chandrikaetnly still pending but that she would be sending an email for urgency on this pending authorization to the clinical reviewer. Will continue to await determination at this time & continue to follow the patient. Thank you for this referral! Rola Parisi RN Clinical Liaison, [facility] Rehab
--- NOTE | 2019-02-26 13:21 | NUR ---
Nutrition follow-up: Diet: ADA puree with thin liquids PO intake ~75% average of meals Labs reviewed Wt: 150# Pt with some confusion, anger per nursing RDN following.
--- NOTE | 2019-02-26 15:18 | NUR ---
OT NOTE: PT COMPLETED BED MOB WITH MOD/MAX A, PT COMPLETED TSF WITH MAX A SECONDARY TO CONFUSION. PT COMPLETED GROOMING TASKS WITH MIN A. PT EXHIBITS POOR SAFETY AWARENESS. THANK YOU, KAREN RICKS
--- NOTE | 2019-02-26 17:18 | NUR ---
Rehab Note- [facility]. Received Auth #[id number] for a level 1 inpatient acute rehab stay. Will plan to accept when medically stable & ready for discharge from the acute hospital. Rola Parisi RN Clinical Liaison, [facility] Rehab
[2019-02-26 18:10] VITALS: BP 146/69
[2019-02-26 19:55] VITALS: BP 117/67
--- NOTE | 2019-02-26 20:45 | NUR ---
AWAKE,ALERT,NO COMPLAINTS VOICED. RESP EVEN AND UNALBORED. ANNA WRAP DRESSING INTACT TO RLE WITHOUT DRAINAGE NOTED. IV TO LFA INTACT WITHOUT REDNESS OR EDEMA NOTED. TAYLOR PATENT AND DRAINING CLEAR YELLOW URINE. SR UP X 3. CL IN REACH
[2019-02-27] VITALS: BP 109/58
--- NOTE | 2019-02-27 02:00 | NUR ---
I have reviewed this patient and I concur with the Shift Assessment completed by the Licensed Practical Nurse today this shift.
[2019-02-27 04:00] VITALS: BP 118/63
--- NOTE | 2019-02-27 07:25 | NUR ---
ALERT AND ORIENTED. SPEECH SLOW AND SLURRED. POD #8 ORIF OF RIGHT ANKLE, DRESSING C/D/I. TAYLOR CATHETER IN PLACE. LEFT SIDED WEAKNESS PRESENT. ON ELECTROLYTE PROTOCOL. IV TO LEFT FOREARM, NS INFUSING @ 50ML/HR. SITE PATENT WITHOUT REDNESS OR SWELLING. NO C/O PAIN. NO S/S OF ACUTE DISTRESS NOTED. PT DENIES ANY NEEDS. CALL LIGHT IN REACH. WILL CONTINUE TO MONITOR.
[2019-02-27 08:00] LABS: BASOPHILS 0 % (0-2); EOSINOPHILS 1.2 % (0-7); HEMATOCRIT 37.7 % (36.0-48.0); HEMOGLOBIN 13.2 g/dL (12-16); IMMATURE GRANULOCYTES 0.6 % (0-5); LYMPHOCYTES 20.1 % (15-50); MCH 31.7 pg (26.0-34.0); MEAN PLATELET VOLUME 11.5 fL (7.4-10.4); MONOCYTES 7.6 % (2-11); NEUTROPHILS 70.5 % (40-80); PLATELET COUNT 162 10x3/uL (130-400); RBC 4.16 10x6/uL (4.00-5.40); RDW 13.4 % (11.5-14.5)
[2019-02-27 08:01] LABS: MCV 90.6 fL (80.0-100.0)
[2019-02-27 08:06] LABS: ANION GAP 8.9 mmol/L (8-16); CALCIUM 8.4 mg/dL (8.5-10.1); CARBON DIOXIDE 28.2 mmol/L (21.0-32.0); CREATININE - SERUM 1.3 mg/dL (0.6-1.3); POTASSIUM - SERUM 4.1 mmol/L (3.5-5.1)
[2019-02-27 08:30] VITALS: BP 157/76
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
[2019-02-27] MEDS ORDERED: HYDROCODON-ACE1 EA10 PO (12:18)
[2019-02-27] MEDS ORDERED: MIRALAX17 GM PO (12:18)
[2019-02-27] MEDS ORDERED: PREDNISONE10 MG PO (12:19)
[2019-02-27] MEDS ORDERED: BAYER CHEWABLE81 MG PO (12:21)
[2019-02-27 12:47] VITALS: BP 101/49
--- NOTE | 2019-02-27 13:01 | NUR ---
I have reviewed this patient and I concur with the Shift Assessment completed by the Licensed Practical Nurse today this shift.
--- NOTE | 2019-02-27 14:23 | NUR ---
DISCHARGED PT TO INPATIENT REHAB, GAVE REPORT TO DENISE. DISCONTINUED IV, CATHETER TIP INTACT. WENT OVER DISCHARGE INSTRUCTIONS WITH PATIENT, VERBALIZED UNDERSTANDING. PT DENIES ANY NEEDS.
--- NOTE | 2019-02-27 14:29 | NUR ---
OT NOTE: PT COMPLETED HAIR GROOMING AND FACE WASH WITH SET UP. THANK YOU, KAREN RICKS
--- NOTE | 2019-02-27 14:53 | NUR ---
Rehab Note- Received call from [facility] & given a different Auth #[id number]. Rola Parisi RN Clinical Liaison, [facility] Rehab
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
== END 2019-02-27 14:24 | DRG 981 ==
LOC: D.ER 16:19 → D.CVICU 19:57 → D.MS 02-23 11:50
PROVIDERS: Emergency Medicine; Internal Medicine Nephrology; Orthopaedic Surgery; ADMIT Family Medicine; ATTEND Family Medicine
PROC: 0QSG04Z Reposition Right Tibia with Internal Fixation Device, Open Approach (ICD-10-PCS; principal; 2019-02-19 14:00)
DX: S06.5X0A Traumatic subdural hemorrhage without loss of consciousness, initial encounter (principal); G93.6 Cerebral edema; I63.81 Other cerebral infarction due to occlusion or stenosis of small artery; I69.354 Hemiplegia and hemiparesis following cerebral infarction affecting left non-dominant side; W19.XXXA Unspecified fall, initial encounter; F19.10 Other psychoactive substance abuse, uncomplicated; I16.0 Hypertensive urgency; I25.10 Atherosclerotic heart disease of native coronary artery without angina pectoris; E11.9 Type 2 diabetes mellitus without complications; S82.841A Displaced bimalleolar fracture of right lower leg, initial encounter for closed fracture; F17.200 Nicotine dependence, unspecified, uncomplicated

== ENCOUNTER 2019-02-27 14:41 | Inpatient (IN) | payer MEDICARE, MEDICAID ==
[~2019-02-27] VITALS: Ht 160 cm; Wt 61.2 kg
[~2019-02-27 14:41] MED LIST changes: +HYDROCODON-ACE1 EA10 PO; +MIRALAX17 GM PO; +PREDNISONE10 MG PO
[2019-02-27 15:23] VITALS: BP 130/60; BMI 23.9
--- NOTE | 2019-02-27 19:20 | NUR ---
PT IS RESTING IN BED WITH EYES OPEN. ALERT TO ROOM AND SELF. PT IS APHASIC, AND ALL WORDS DO NOT COME OUT CORRECTLY, OR ARE SLURRED AT TIMES. SOFT CAST TO LEFT ANKLE IS CDI. NO DRAINAGE NOTED. SR'S ARE UP X 3 IN BED. CALL LIGHT AND BEDSIDE TABLE ARE WITHIN EASY REACH.
--- NOTE | 2019-02-27 21:18 | NUR ---
PT IS RESTING IN BED WATCHING TV. NO NEEDS VOICED.
[2019-02-27 21:19] VITALS: BP 149/74
--- NOTE | 2019-02-27 23:41 | NUR ---
RESTING IN BED WITH EYES CLOSED.
--- NOTE | 2019-02-27 23:42 | NUR ---
I have reviewed this patient and I concur with the Shift Assessment completed by the Licensed Practical Nurse today this shift.
--- NOTE | 2019-02-28 04:02 | NUR ---
RESTING IN BED WITH EYES CLOSED.
[2019-02-28 07:14] LABS: BASOPHILS 0.1 % (0-2); EOSINOPHILS 1.1 % (0-7); HEMATOCRIT 35.1 % (36.0-48.0); HEMOGLOBIN 12.1 g/dL (12-16); IMMATURE GRANULOCYTES 0.4 % (0-5); LYMPHOCYTES 18.2 % (15-50); MCH 31.3 pg (26.0-34.0); MCHC 34.5 g/dL (31.0-37.0); MCV 90.7 fL (80.0-100.0); MEAN PLATELET VOLUME 10.7 fL (7.4-10.4); MONOCYTES 8.7 % (2-11); NEUTROPHILS 71.5 % (40-80); PLATELET COUNT 170 10x3/uL (130-400); RBC 3.87 10x6/uL (4.00-5.40); RDW 13.5 % (11.5-14.5); WBC 11.4 10x3/uL (4.8-10.8)
[2019-02-28 07:17] LABS: ANION GAP 10.7 mmol/L (8-16); CALCIUM 8.7 mg/dL (8.5-10.1); CARBON DIOXIDE 28.8 mmol/L (21.0-32.0); CREATININE - SERUM 1.2 mg/dL (0.6-1.3); POTASSIUM - SERUM 4.5 mmol/L (3.5-5.1)
--- NOTE | 2019-02-28 12:26 | NUR ---
THE PATIENT APPEARED TO BE SLEEPING BUT EASILY AWOKE WHEN STAFF ENTERED HER ROOM. BED IS IN THE LOW POSITION WITH SIDERAILS X2 AND CALL LIGHT WITHIN REACH. THE PATIENT WAS EDUCATED ON AND DEMONSTRATED APPROPRIATE USE OF A CALL LIGHT. THE PATIENT APPEARS COMFORTABLE WITH NO QUESTIONS OR CONCERNS AT THIS TIME.
[2019-02-28 12:40] VITALS: Ht 160 cm; Wt 61.2 kg
[2019-02-28 16:53] VITALS: BP 127/70
--- NOTE | 2019-02-28 19:25 | NUR ---
PT IS RESTING IN BED WITH EYES OPEN. ALERT TO SELF. PT SEEMS TO ANSWER ALL QUESTIONS APPROPRIATELY, BUT SOMETIMES HAS WORD SALAD, MAKING IT DIFFICULTY TO DETERMINE. SHE IS SMILING AND COOPERATIVE AT ALL TIMES. TAYLOR CATH IS PATENT AND DRAINING TO A GRAVITY BAG. SR'S ARE UP X 3 IN BED. CALL LIGHT AND BEDSIDE TABLE ARE WITHIN EASY REACH.
[2019-02-28 20:00] VITALS: BP 127/71
--- NOTE | 2019-02-28 21:27 | NUR ---
PT IS RESTING IN BED WITHE EYS OPEN, WATCHING TV. NO ACUTE DISTRESS NOTED.
--- NOTE | 2019-03-01 00:53 | NUR ---
I have reviewed this patient and I concur with the Shift Assessment completed by the Licensed Practical Nurse today this shift.
[2019-03-01 09:46] VITALS: BP 171/64
--- NOTE | 2019-03-01 10:08 | NUR ---
THE PATIENT WAS LYING IN BED AND WATCHING TELEVISION WHEN STAFF ENTERED HER ROOM. BED IS IN THE LOW POSITION WITH SIDERAILS X2 AND CALL LIGHT WITHIN REACH. THE PATIENT WAS EDUCATED ON THE USE OF A CALL LIGHT AND DEMONSTRATES UNDERSTANDING. THE PATIENT APPEARS COMFORTABLE WITH NO QUESTIONS OR COCNERNS AT THIS TIME.
[2019-03-01 16:08] VITALS: BP 124/52
--- NOTE | 2019-03-01 19:35 | NUR ---
PT RESTING IN BED WITH EYES CLOSED. NO ACUTE DISTRESS NOTED.
[2019-03-01 20:15] VITALS: BP 114/65
--- NOTE | 2019-03-01 21:56 | NUR ---
RESTING IN BED WITH EYES CLOSED.
--- NOTE | 2019-03-02 00:59 | NUR ---
I have reviewed this patient and I concur with the Shift Assessment completed by the Licensed Practical Nurse today this shift.
--- NOTE | 2019-03-02 04:10 | NUR ---
RESTING IN BED WITH EYES CLOSED.
[2019-03-02 07:01] LABS: BASOPHILS 0.1 % (0-2); EOSINOPHILS 0.5 % (0-7); HEMATOCRIT 36.9 % (36.0-48.0); HEMOGLOBIN 12.5 g/dL (12-16); IMMATURE GRANULOCYTES 0.5 % (0-5); LYMPHOCYTES 13.2 % (15-50); MCH 31.2 pg (26.0-34.0); MCHC 33.9 g/dL (31.0-37.0); MEAN PLATELET VOLUME 10.7 fL (7.4-10.4); MONOCYTES 5.4 % (2-11); NEUTROPHILS 80.3 % (40-80); PLATELET COUNT 200 10x3/uL (130-400); RBC 4.01 10x6/uL (4.00-5.40); RDW 13.8 % (11.5-14.5)
[2019-03-02 07:02] LABS: WBC 17.3 10x3/uL (4.8-10.8)
[2019-03-02 07:44] LABS: ANION GAP 10.3 mmol/L (8-16); CALCIUM 9.4 mg/dL (8.5-10.1); CARBON DIOXIDE 31.5 mmol/L (21.0-32.0); CREATININE - SERUM 1.3 mg/dL (0.6-1.3); POTASSIUM - SERUM 4.8 mmol/L (3.5-5.1)
--- NOTE | 2019-03-02 08:00 | NUR ---
PATIENT IS ALERT WITH EXPRESSIVE APHASIA. BED ALARM ON. CALL LIGHT WITHIN REACH. WILL CONTINUE WITH PLAN OF CARE
[2019-03-02 08:23] VITALS: BP 163/88
--- NOTE | 2019-03-02 11:20 | NUR ---
PATIENT IN REHAB ROOM. WORKING WITH PHYSICAL AND OCCUPATIONAL THERAPIST.
--- NOTE | 2019-03-02 15:22 | NUR ---
PATIENT IS A TOTAL ASST TO STAND. PATIENT HAS A TAYLOR CATH. INCOT OF BOWEL MOVEMENTS
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
--- NOTE | 2019-03-02 20:00 | NUR ---
PT IS RESTING IN BED WITH EYES OPEN. PT IS ANGRY STATING EVERYONE WAS MEAN TO HER TODAY. I SAID, WELL IM HERE NOW, AND SHE SMILED, AND SAID YAYYYYYY. PTS SPEECH IS SLURRED AND HARD TO INTERPRET AT TIMES. RIGHT ANKLE SOFT CAST IS CDI. NO DRAINAGE NOTED. PT DENIES ANY NEEDS AT THIS TIME. SR'S ARE UP X 3 IN BED. CALL LIGHT AND BEDSIDE TABLE ARE WITHIN EASY REACH.
--- NOTE | 2019-03-02 22:38 | NUR ---
RESTING IN BED WITH EYES CLOSED.
--- NOTE | 2019-03-03 01:00 | NUR ---
PT RESTING IN BED WITH EYES CLOSED.
--- NOTE | 2019-03-03 04:01 | NUR ---
I have reviewed this patient and I concur with the Shift Assessment completed by the Licensed Practical Nurse today this shift.
--- NOTE | 2019-03-03 06:08 | NUR ---
TAYLOR CATH DC'D WITH BULB INTACT. PT VOICED RELIEF.
--- NOTE | 2019-03-03 08:15 | NUR ---
PT RESTING IN BED WITH EYES OPEN CALL LIGHT IN REACH WILL MONITER
[2019-03-03 08:22] VITALS: BP 150/62
--- NOTE | 2019-03-03 14:00 | NUR ---
I have reviewed this patient and I concur with the Shift Assessment completed by the Licensed Practical Nurse today this shift.
--- NOTE | 2019-03-03 15:51 | NUR ---
Nutrition Follow-up: Diet: Diabetic Puree PO intake: 46% avg. x 6 meals Labs reviewed, elevated glucose noted Significant meds: prednisone, SSI, miralax No BM since admit x 3 days Wt: 135# (02/28/19) Inadequate intake. Will add Glucerna with meals RD Following
--- NOTE | 2019-03-03 19:29 | NUR ---
PT IN BED LOWEST POSITION, WATCHING TV, RESPIRATIONS EVEN AND UNLABORED, NO IMMEDIATE NEEDS NOTED, FLUIDS AND CALL LIGHT WITHIN REACH
--- NOTE | 2019-03-03 22:00 | NUR ---
PT C/O NECK PAIN, PRN NORCO 10 GIVEN
--- NOTE | 2019-03-03 23:06 | NUR ---
PT IN BED LOWEST POSITION, EYES CLOSED AROUSES EASILY TO VOICE, NO IMMEDIATE NEEDS NOTED,RESPIRATIONS EVEN AND UNLABORED, FLUIDS AND CALL LIGHT WITHIN REACH
[2019-03-03 23:19] VITALS: BP 120/57
--- NOTE | 2019-03-04 05:58 | NUR ---
PT AT 84 FSBS NO INSULIN REQUIRED ATE 50% OF PUDDING
[2019-03-04 06:47] LABS: BASOPHILS 0.1 % (0-2); EOSINOPHILS 0.9 % (0-7); HEMATOCRIT 35.1 % (36.0-48.0); HEMOGLOBIN 11.9 g/dL (12-16); IMMATURE GRANULOCYTES 0.3 % (0-5); MCH 31.2 pg (26.0-34.0); MCHC 33.9 g/dL (31.0-37.0); MCV 92.1 fL (80.0-100.0); MEAN PLATELET VOLUME 10.5 fL (7.4-10.4); MONOCYTES 6.3 % (2-11); NEUTROPHILS 82.4 % (40-80); PLATELET COUNT 177 10x3/uL (130-400); RBC 3.81 10x6/uL (4.00-5.40); RDW 14.5 % (11.5-14.5); WBC 16.2 10x3/uL (4.8-10.8)
[2019-03-04 07:07] LABS: CALCIUM 8.4 mg/dL (8.5-10.1); CARBON DIOXIDE 29.1 mmol/L (21.0-32.0); CREATININE - SERUM 1.3 mg/dL (0.6-1.3); POTASSIUM - SERUM 4.1 mmol/L (3.5-5.1)
--- NOTE | 2019-03-04 07:30 | NUR ---
RESTING WO DISTRESS. RESP EVEN AND UNLABORED. CL IN REACH.
[2019-03-04 08:02] VITALS: BP 123/58
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
[2019-03-04 20:11] VITALS: BP 117/38
--- NOTE | 2019-03-04 20:33 | NUR ---
AWAKE AND ALERT. RESTING IN BED WITH RESPIRATIONS UNLABORED. SPEECH SLURRED AND NOTED WORD SALAD. PLEASANT AND COOPERATIVE AND IS ABLE TO SPEAK ENOUGH TO MAKE NEEDS KNOWN. RIGHT LOWER EXTREMITY CAST INTACT. NO ACUTE DISTRESS NOTED. CALL LIGHT IN REACH.
--- NOTE | 2019-03-05 01:46 | NUR ---
INCONTINENT CARE GIVEN. BED LINENS CHANGED. REPOSITIONED FOR COMFORT. RESPIRATIONS UNLABORED. NO ACUTE DISTRESS NOTED. CALL LIGHT IN REACH.
--- NOTE | 2019-03-05 05:12 | NUR ---
QUIET HOURS. NO ACUTE CHANGES IN CONDITION THIS SHIFT. RESTING IN BED WITH RESPIRATIONS UNLABORED. CALL LIGHT IN REACH.
--- NOTE | 2019-03-05 09:34 | NUR ---
THE PATIENT APPEARED TO BE SLEEPING BUT EASILY AWOKE WHEN STAFF ENTERED HER ROOM. BED IS IN THE LOW POSITION WITH SIDERAILS X2 AND CALL LIGHT WITHIN REACH. THE PATIENT WAS EDUCATED TO CALL FOR STAFF FOR ASSISTANCE WITH ANYTHING THAT SHE NEEDS. PATIENT WAS UNABLE TO DEMONSTRATE TEACHBACK. FURTHER EDUCATION IS NEEDED. THE PATIENT APPEARS COMFORTABLE AND HAS NO QUESTIONS OR COCNERNS AT THIS TIME.
--- NOTE | 2019-03-05 11:31 | NUR ---
LATE ENTRY FROM 03/03/19 [facility] AUTH[facility] # [id number], SPOKE WITH MÓNICA TODAY AND WILL SEND CARE TEAM SHEET AND REQUEST FOR EXTENSION OF STAY. WILL CONTINUE TO FOLLOW WITH PATIENT.
[2019-03-05 16:41] VITALS: BP 153/75
--- NOTE | 2019-03-05 19:30 | NUR ---
PT LYING IN BED. CL IN REACH. DENIES NEEDS OR PAIN AT THIS TIME. RESP EVEN AND UNLABORED. A/O X4. BED IN LOW SIDE RAILS X2. BED ALARM ON. LUNGS CLEAR. BOWEL ACTIVE X4. WILL CONTINUE TO MONITOR.
[2019-03-05 20:00] VITALS: BP 102/51
--- NOTE | 2019-03-06 01:00 | NUR ---
PT RESTING QUIETLY. CL IN REACH. NO DISTRESS NOTED. WCTM
--- NOTE | 2019-03-06 03:15 | NUR ---
I have reviewed this patient and I concur with the Shift Assessment completed by the Licensed Practical Nurse today this shift.
--- NOTE | 2019-03-06 06:09 | NUR ---
CERTIFIED GREEN BUILDING ENGINEER WENT TO GIVE PT BED BATH THIS AM AND WHEN CHECKING BRIEF PT BRIEF WAS SOILED WITH MODERATE AMOUNT OF BRIGHT RED BLOOD. CALLED DR. CARROLL AND ORDERED UA AND CBC. WCTM
--- NOTE | 2019-03-06 06:26 | NUR ---
IN AND OUT CATH COMPLETED. TOLERATED WELL. STERILE TECHNIQUE USED. DENIES PAIN.
[2019-03-06 07:03] LABS: ANION GAP 11.3 mmol/L (8-16); CALCIUM 8.6 mg/dL (8.5-10.1); CARBON DIOXIDE 27.8 mmol/L (21.0-32.0); CREATININE - SERUM 1.3 mg/dL (0.6-1.3); POTASSIUM - SERUM 4.1 mmol/L (3.5-5.1)
[2019-03-06 07:21] LABS: APPEARANCE TURBID (CLEAR); BILIRUBIN NEGATIVE (NEGATIVE); COLOR RED (YELLOW); EPITHELIAL CELLS NSEEN /hpf (0-5); GLUCOSE NEGATIVE (NEGATIVE); KETONE NEGATIVE (NEGATIVE); NITRITE NEGATIVE (NEGATIVE); PROTEIN NEGATIVE (NEGATIVE); RED CELLS - URINE >50 /hpf (0-5); SPECIFIC GRAVITY 1.015 (1.005-1.020); UROBILINOGEN NORMAL (NORMAL); WHITE CELLS - URINE 0-5 /hpf (0-5)
[2019-03-06 07:21] LABS: BASOPHILS 0.1 % (0-2); EOSINOPHILS 1.2 % (0-7); HEMATOCRIT 36.1 % (36.0-48.0); HEMOGLOBIN 12.2 g/dL (12-16); IMMATURE GRANULOCYTES 0.3 % (0-5); LYMPHOCYTES 12.1 % (15-50); MCH 31.4 pg (26.0-34.0); MCHC 33.8 g/dL (31.0-37.0); MCV 92.8 fL (80.0-100.0); MEAN PLATELET VOLUME 10.8 fL (7.4-10.4); MONOCYTES 4.8 % (2-11); NEUTROPHILS 81.5 % (40-80); PLATELET COUNT 161 10x3/uL (130-400); RBC 3.89 10x6/uL (4.00-5.40); RDW 14.2 % (11.5-14.5); WBC 15.2 10x3/uL (4.8-10.8)
[2019-03-06 07:22] LABS: BACTERIA MODERATE /hpf (NONE SEEN)
[2019-03-06 08:42] VITALS: BP 147/67
--- NOTE | 2019-03-06 16:20 | NUR ---
THE PATIENT APPEARED TO BE SLEEPING BUT EASILY AWOKE WHEN STAFF ENTERED HER ROOM. BED IS IN THE LOW POSITION WITH SIDERAILS X2 AND CALL LIGHT IS WITHIN REACH. THE PATIENT WAS EDUCATED ON THE NEED TO CALL FOR STAFF WITH ANYTHING THAT REQUIRES GETTING OUT OF BED. THE PATIENT DEMONSTRATES UNDERSTANDING VIA TEACHBACK METHOD. THE PATIENT APPEARS COMFORTABLE WITH NO QUESTIONS OR CONCERNS AT THIS TIME.
[2019-03-06 17:09] VITALS: BP 133/60
[2019-03-06 19:30] VITALS: BP 118/63
--- NOTE | 2019-03-06 19:39 | NUR ---
AWAKE AND ALERT. RESTING IN BED WITH RESPIRATIONS UNLABORED. NOTED CONFUSED WITH GARBLED SPEECH AND WORD SALAD. IMMOBILIZER IN PLACE TO RIGHT LOWER LEG. REPORT RECIEVED THAT SURYA HAD BEEN REMOVED ON PREVIOUS SHIFT. NO ACUTE DISTRESS NOTED. CALL LIGHT IN REACH.
--- NOTE | 2019-03-06 23:43 | NUR ---
RESTING IN BED WITH RESPIRATIONS UNLABORED. NO ACUTE DISTRESS NOTED. CALL LIGHT IN REACH.
--- NOTE | 2019-03-07 03:38 | NUR ---
CONTINUES RESTING IN BED WITH EYES CLOSED AND RESPIRAIONS UNLABORED. NO DISTRESS NOTED. CALL LIGHTIN REACH.
--- NOTE | 2019-03-07 05:29 | NUR ---
QUIET HOURS. NO ACUTE CHANGES IN CONDITION THIS SHIFT. RESTING IN BED WITH NO DISTRESS NOTED. CALL LIGHT IN REACH.
[2019-03-07 07:21] LABS: BASOPHILS 0.1 % (0-2); EOSINOPHILS 2.2 % (0-7); HEMATOCRIT 36.7 % (36.0-48.0); HEMOGLOBIN 12.6 g/dL (12-16); IMMATURE GRANULOCYTES 0.4 % (0-5); MCH 31.7 pg (26.0-34.0); MCHC 34.3 g/dL (31.0-37.0); MCV 92.4 fL (80.0-100.0); MEAN PLATELET VOLUME 10.3 fL (7.4-10.4); MONOCYTES 4.5 % (2-11); NEUTROPHILS 75.8 % (40-80); PLATELET COUNT 152 10x3/uL (130-400); RBC 3.97 10x6/uL (4.00-5.40); RDW 14.1 % (11.5-14.5)
[2019-03-07 07:37] LABS: CALCIUM 8.8 mg/dL (8.5-10.1); CARBON DIOXIDE 28.1 mmol/L (21.0-32.0); CREATININE - SERUM 1.3 mg/dL (0.6-1.3); POTASSIUM - SERUM 4.1 mmol/L (3.5-5.1)
--- NOTE | 2019-03-07 08:07 | NUR ---
PT SITTING ON EDGE OF BED EATING DINNER. PT HAD EPISODE OF INCONT. PT LINENS CHANGED AT THSI TIME. WCTM.
--- NOTE | 2019-03-07 09:56 | NUR ---
PT AM MEDS ADMINSITERED. PT DENIES NEEDS. WCTM.
[2019-03-07 10:28] VITALS: BP 123/57
--- NOTE | 2019-03-07 17:32 | NUR ---
PT EATING DINNER, DENIES NEEDS. WCTM.
[2019-03-07 19:40] VITALS: BP 132/60
--- NOTE | 2019-03-07 20:11 | NUR ---
AWAKE AND ALERT. RESPIRATIONS UNLABORED. CONTIUES TO HAVE GARBLED SPEECH AND WORD SALAD. SOME WORDS CLEAR. IMMOBILZER INTACT TO RIGHT LOWER LEG. CONTINUES ANTIBIOTICS RELATED TO UTI WITH NO ADVERSE REACTIONS NOTED. NO DISTRESS NOTED. CALL LIGHT IN REACH.
--- NOTE | 2019-03-08 01:00 | NUR ---
RESTING IN BED WITH EYES CLOSED AND RESPIRATIONS UNLABORED. NO DISTRESS NOTED. CALL LIGHT IN REACH.
--- NOTE | 2019-03-08 06:19 | NUR ---
RESTING IN BED WITH EYES CLOSED. HAD BATH AND LINEN CHANGE AT 0500. DRESSING CHANGES TO RIGHT ANKLE. NO DISTRESS NOTED.
--- NOTE | 2019-03-08 08:00 | NUR ---
SHIFT ASSMT COMPLETED.RLE WITH IMMOBILIZER IN PLACE.BREAKFAST GIVEN.CL IN REACH.
[2019-03-08 08:52] VITALS: BP 127/48
--- NOTE | 2019-03-08 12:00 | NUR ---
EATING LUNCH.DENIES NEEDS.
--- NOTE | 2019-03-08 16:00 | NUR ---
RESTING QUIETLY.WATCHING TV.
[2019-03-08 19:34] VITALS: BP 90/49
--- NOTE | 2019-03-08 19:52 | NUR ---
AWAKE AND ALERT TALKING ON PHONE. RESPIRATIONS UNLABORED. IMMOBILIZER INTACT TO RIGHT LOWER LEG. HX OF CVA WITH GENERALIZED WEAKNESS AND DYSPHAGIA AND GARBLED SPEECH. NO ACUTE DISTRESS NOTED. CALL LIGHT IN REACH.
--- NOTE | 2019-03-09 03:27 | NUR ---
RESTING IN BED WITH EYES CLOSED AND RESPIRATIONS UNLABORED. NO DISTRESS NOTED. CALL LIGHT IN REACH.
--- NOTE | 2019-03-09 06:35 | NUR ---
AWAKE AND ALERT. RESTING IN BED. RECENTLY MEDICATED FOR PAIN WITH NOTED RELIEFT. NO ACUTE CHANGES IN CONDITION THIS SHIFT.
[2019-03-09 09:00] VITALS: BP 113/59
--- NOTE | 2019-03-09 13:31 | NUR ---
SHOWER TODAY PER OT.
--- NOTE | 2019-03-09 13:31 | NUR ---
SITTING WC FOR LUNCH FROM LUNCH.
--- NOTE | 2019-03-09 13:34 | NUR ---
RESTING IN ROOM WO DISTRESS.
--- NOTE | 2019-03-09 14:16 | NUR ---
Nutrition Follow-up: Diet: Diabetic PO intake: 68% x 7 meals Wt: 135# (02/28/19) +BM Labs noted. Elevated Blood Glucose Significant meds: bactrim, SSI, Miralax, predinisone (D/C'd today) Reports "okay" appetite. Wants Chocolate Glucerna. Will add once daily. RD Following
--- NOTE | 2019-03-09 18:36 | NUR ---
NO CHANGE IN ASSESSMENT. CL IN REACH.
--- NOTE | 2019-03-09 19:30 | NUR ---
BEDSIDE REPORT COMPLETE. SITTING UP ON SIDE OF BED TALKING ON PHONE. C/O PAIN IN RIGHT ANKLE 12/22 REQUEST PAIN MEDICATION. WILL ADMININSTER PER ORDER. NO OTHER COMPLAINTS VOICED. CALL LIGHT AND WATER WITHIN REACH, FALL PRECAUTIONS IN PLACE. WILL CONTINUE TO MONITOR
[2019-03-09 19:45] VITALS: BP 110/62
--- NOTE | 2019-03-09 23:39 | NUR ---
QUIET HOURS. LYING IN BED ON RIGHT SIDE EYES CLOSED RESTING. NO SIGNS OF DISTRESS NOTED. WILL CONTINUE TO MONITOR
--- NOTE | 2019-03-10 02:15 | NUR ---
LYING IN BED ON RIGHT SIDE EYES CLOSED RESTING. NO SIGNS OF DISTRESS NOTED. WILL CONTINUE TO MONITOR
--- NOTE | 2019-03-10 05:50 | NUR ---
LYING IN BED ON LEFT SIDE EYES CLOSED RESTING. FSBS 96. NO SIGNS OF DISTRESS NOTED. WILL CONTINUE TO MONITOR
--- NOTE | 2019-03-10 07:18 | NUR ---
ALERT AND ORIENTED. NO DISTRESS NOTED. IMMOBILIZER TO R LE. APHASIC. WORDS GARBLED AT TIMES CLEARER. CL IN REACH.
[2019-03-10 08:10] VITALS: BP 98/59
--- NOTE | 2019-03-10 12:29 | NUR ---
EATING LUNCH. NO DISTRESS NOTED. SHOWER TODAY PER OT. RESP EVEN AND UNLABORED.
--- NOTE | 2019-03-10 15:57 | NUR ---
SPOKE WITH PATIENT AND SHE AGREES TO DSICHARGE TO THE [facility]. REFERRAL HAS BEEN FAXED AND UPDATES HAVE BEEN FAXED TO [facility] , AUTH. # [id number] , FAX TO WITH CONFORMATION RECIEVED
--- NOTE | 2019-03-10 16:35 | NUR ---
NO CHANGE IN ASSESSMENT. RESTING WITH EYES CLOSED. CL IN REACH.
--- NOTE | 2019-03-10 19:27 | NUR ---
AWAKE AND ALERT. RESTING IN BED. RESPIRATIONS UNLABORED. NO ACUTE DISTRESS NOTED. IMMOBILIZER INTACT TO RIGHT LEG. CALL LIGHT IN REACH.
[2019-03-10 20:27] VITALS: BP 120/52
--- NOTE | 2019-03-11 00:22 | NUR ---
RESTING IN BED WITH EYES CLOSED AND RESPIRATIONS UNLABORED. NO DISTRESS NOTED. CALL LIGHT IN REACH.
--- NOTE | 2019-03-11 02:51 | NUR ---
INCONTINENT OF LARGE BM. INCONTINENCE CARE GIVEN AND LINENS CHANGED. RESTING NOW WITH NO ACUTE DISTRESS NOTED.
--- NOTE | 2019-03-11 06:20 | NUR ---
RESTING IN BED. MEDICATED FOR PAIN. RESPIRATIONS UNALBORED. IMMOBILZER TO RIGHT LEG INTACT. CALL LIGHT IN REACH.
[2019-03-11 07:33] LABS: BASOPHILS 0.3 % (0-2); HEMATOCRIT 35.7 % (36.0-48.0); IMMATURE GRANULOCYTES 0.3 % (0-5); LYMPHOCYTES 18.6 % (15-50); MCH 31.5 pg (26.0-34.0); MCHC 33.6 g/dL (31.0-37.0); MCV 93.7 fL (80.0-100.0); MEAN PLATELET VOLUME 10.4 fL (7.4-10.4); MONOCYTES 5.7 % (2-11); NEUTROPHILS 72.1 % (40-80); PLATELET COUNT 139 10x3/uL (130-400); RBC 3.81 10x6/uL (4.00-5.40); RDW 14.6 % (11.5-14.5); WBC 6.4 10x3/uL (4.8-10.8)
[2019-03-11 07:43] LABS: ANION GAP 12.3 mmol/L (8-16); CALCIUM 8.8 mg/dL (8.5-10.1); CARBON DIOXIDE 27.1 mmol/L (21.0-32.0); CREATININE - SERUM 1.5 mg/dL (0.6-1.3); POTASSIUM - SERUM 4.4 mmol/L (3.5-5.1)
--- NOTE | 2019-03-11 08:00 | NUR ---
SHIFT ASSMT COMPLETED.CL IN REACH.BREAKFAST GIVEN.
[2019-03-11 08:02] VITALS: BP 170/72
--- NOTE | 2019-03-11 12:00 | NUR ---
SITTING UP IN BED EATING LUNCH.CL IN REACH.
--- NOTE | 2019-03-11 16:00 | NUR ---
ASSISTED UP TO BATHROOM WITH MOD ASSIST.PLACED BACK TO BED.CL IN REACH.
--- NOTE | 2019-03-11 19:55 | NUR ---
RESTING IN BED WITH RESPIRATIONS UNLABORED. IMMOBILIZER IN PLACE TO RIGHT LOWER LEG. NO DISTRESS NOTED. CALL LIGHT IN REACH.
[2019-03-11 20:52] VITALS: BP 104/82
--- NOTE | 2019-03-12 00:30 | NUR ---
RESTING IN BED WITH NO DISTRESS NOTED. CALL LIGHT IN REACH.
--- NOTE | 2019-03-12 03:08 | NUR ---
INCONTIENCE CARE GIVEN AND REPOSITIONED FOR COMFORT. NO DISTRESS NOTED.
--- NOTE | 2019-03-12 05:18 | NUR ---
CONTINUES RESTING IN BED WITH NO DISTRESS NOTED. QUIET HOURS. IMMOBILZER IN PLACE TO RIGHT LEG. NO ACUTE CHANGES IN CONDITION THIS SHIFT.
[2019-03-12 08:00] VITALS: BP 119/61; BP 143/50
--- NOTE | 2019-03-12 08:00 | NUR ---
SHIFT ASSMT COMPLETED.BREAKFAST TRAY GIVEN.MEAL SET-UP PROVIDED.CL IN REACH.
[2019-03-12] MEDS ORDERED: HYDROCODON-ACE1 EA10 PO (08:48)
--- NOTE | 2019-03-12 12:00 | NUR ---
LUNCH GIVEN.MEAL SET-UP PROVIDED.CL IN REACH.
--- NOTE | 2019-03-12 13:15 | NUR ---
SPOKE WITH PATIENT AND THE [facility] HAS DENIED HER SO REFERRAL HAS BEEN FAXED TO [facility].
--- NOTE | 2019-03-12 19:10 | NUR ---
BEDSIDE REPORT COMPLETE. SITTING UP IN BED WATCHING TV. ALERT AND ORIENTED X3. DENIES ANY NEEDS. C/O DISCOMFORT RIGHT ANKLE. LAST PAIN MED GIVEN 1700. NO SIGNS OF DISTRESS NOTED. CALL LIGHT AND WATER WITHIN REACH, FALL PRECAUTIONS IN PLACE. WILL CONTINUE TO MONITOR
[2019-03-12 21:24] VITALS: BP 133/61
--- NOTE | 2019-03-12 23:17 | NUR ---
LYING IN BED ON RIGHT SIDE EYES CLOSED RESTING. NO SIGNS OF DISTRESS NOTED. WILL CONTINUE TO MONITOR
--- NOTE | 2019-03-13 02:54 | NUR ---
LYING IN BED ON LEFT SIDE EYES CLOSED RESTING. RR EVEN AND UNLABORED. WILL CONTINUE TO MONITOR
--- NOTE | 2019-03-13 05:04 | NUR ---
LYING IN BED ON LEFT SIDE EYES CLOSED RESTING. NO SIGNS OF DISTRESS NOTED. WILL CONTINUE TO MONITOR
[2019-03-13 07:56] LABS: BASOPHILS 0.3 % (0-2); EOSINOPHILS 3.3 % (0-7); HEMATOCRIT 37.4 % (36.0-48.0); HEMOGLOBIN 12.6 g/dL (12-16); IMMATURE GRANULOCYTES 0.3 % (0-5); LYMPHOCYTES 16.3 % (15-50); MCH 31.7 pg (26.0-34.0); MCHC 33.7 g/dL (31.0-37.0); MCV 94.2 fL (80.0-100.0); MEAN PLATELET VOLUME 10.3 fL (7.4-10.4); MONOCYTES 5.5 % (2-11); NEUTROPHILS 74.3 % (40-80); PLATELET COUNT 182 10x3/uL (130-400); RBC 3.97 10x6/uL (4.00-5.40); RDW 14.6 % (11.5-14.5); WBC 6.6 10x3/uL (4.8-10.8)
[2019-03-13 08:03] LABS: ANION GAP 13.5 mmol/L (8-16); CARBON DIOXIDE 27.8 mmol/L (21.0-32.0); CREATININE - SERUM 1.6 mg/dL (0.6-1.3); POTASSIUM - SERUM 4.3 mmol/L (3.5-5.1)
--- NOTE | 2019-03-13 08:15 | NUR ---
PT RESTING IN BED WITH EYES OPEN CALL LIGHT IN REACH NO PROBLEMS WILL MONITER
--- NOTE | 2019-03-13 10:46 | NUR ---
NUTRITION FOLLOW UP: INTERVIEW: Patient stated her appetite has been off and on. She denied N/V/D/C. Patient has missing teeth. She stated that she enjoys the glucerna with her trays. Patient denies pain interfering with appetite. DIET: ADA Mechanical Soft w/ Glucerna TID PO INTAKE: 50% x 9 meals WT: 02/28-135 lbs. No new wt BM: x 1 on 03/12 MEDS: [place], Humulog, miralax LABS: Vit D-21.2(L), BUN-21(H), Cr-1.6(H) GOALS: PO intake >/= 75%, BM q 3 days, stable wt, mantain skin integrity, labs WNL Consider Vit D supplement Will Continue to Monitor Closely Clinical Dietitian Following
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
--- NOTE | 2019-03-13 12:36 | NUR ---
PATIENT DISCHARGED TO [facility]. AN APPOINTMENT WITH DR. DENISE WILL BE MADE AT TIME OF DSICHARGE FROM FACILITY. PATIENT CHOICE FORM AND IMFM FORMS SIGNED, COPY GIVEN TO PATIENT AND FILED IN CHART. DISCHARGE INSTRUCTIONS WITH FIM DATA FAXED TO PCP, SNF AND REVIEWED WITH PATIENT.
--- NOTE | 2019-03-13 12:45 | NUR ---
PT DISCHARGED TO [facility] REPORT CALLED PT LEFT VIA WHEELCHAIR WITH TRANSPORTER. TOLERATED WELL VANESSA TORO
--- NOTE | 2019-03-13 15:05 | NUR ---
DISCHARGE CLINICALS HAVE BEEN FAXED TO [facility] AT , AUTH. #[id number] WITH CONFORMATION RECIEVED
== END 2019-03-13 14:33 | DRG 57 ==
LOC: D.REHAB 14:41
PROVIDERS: ADMIT Emergency Medicine; ATTEND Emergency Medicine
DX: I69.30 Unspecified sequelae of cerebral infarction (principal); R13.12 Dysphagia, oropharyngeal phase; R47.1 Dysarthria and anarthria; I10 Essential (primary) hypertension; I25.10 Atherosclerotic heart disease of native coronary artery without angina pectoris; F01.50 Vascular dementia, unspecified severity, without behavioral disturbance, psychotic disturbance, mood disturbance, and anxiety; F17.200 Nicotine dependence, unspecified, uncomplicated; S82.899D Other fracture of unspecified lower leg, subsequent encounter for closed fracture with routine healing; W19.XXXD Unspecified fall, subsequent encounter; F19.10 Other psychoactive substance abuse, uncomplicated; E11.65 Type 2 diabetes mellitus with hyperglycemia; R41.82 Altered mental status, unspecified

== ENCOUNTER 2019-06-07 00:29 | Emergency (ER) | payer MEDICARE ==
[~2019-06-07] VITALS: Ht 160 cm; Wt 77.3 kg
[2019-06-07 00:31] VITALS: Ht 160 cm; Wt 77.3 kg
[2019-06-07] MEDS ORDERED: PLAVIX75 MG PO (00:35)
[2019-06-07 01:19] LABS: BASOPHILS 0.4 % (0-2); EOSINOPHILS 1.9 % (0-7); HEMATOCRIT 38.9 % (36.0-48.0); HEMOGLOBIN 12.9 g/dL (12-16); IMMATURE GRANULOCYTES 0.1 % (0-5); LYMPHOCYTES 15.1 % (15-50); MCH 30.6 pg (26.0-34.0); MCHC 33.2 g/dL (31.0-37.0); MCV 92.4 fL (80.0-100.0); MEAN PLATELET VOLUME 10.5 fL (7.4-10.4); MONOCYTES 7.7 % (2-11); NEUTROPHILS 74.8 % (40-80); PLATELET COUNT 216 10x3/uL (130-400); RBC 4.21 10x6/uL (4.00-5.40); RDW 12.1 % (11.5-14.5); WBC 9.1 10x3/uL (4.8-10.8)
[2019-06-07 01:30] LABS: CALC OSMOLALITY 290 mosm/kg (275-300); CALCIUM 9.2 mg/dL (8.5-10.1); CARBON DIOXIDE 28.7 mmol/L (21.0-32.0); CHLORIDE - SERUM 105 mmol/L (98-107); CREATININE - SERUM 1.2 mg/dL (0.6-1.3); GLUCOSE 158 mg/dL (74-106); POTASSIUM - SERUM 4.3 mmol/L (3.5-5.1); SODIUM 143 mmol/L (136-145); UREA NITROGEN 22 mg/dL (7-18); eGFR NON AFRICAN AMERICAN 47 mL/min (90-120)
[2019-06-07 01:34] LABS: APTT 26.7 SECONDS (22.8-39.4); INR 1.05 (0.85-1.17); PROTIME 13.2 SECONDS (11.6-15.0)
[2019-06-07 01:45] LABS: ALBUMIN 3.5 g/dL (3.4-5.0); ALKALINE PHOSPHATASE 100 U/L (46-116); ALT (SGPT) 17 U/L (10-68); PRO BNP 363 pg/mL (0-125); THYROID STIMULATING HORMONE 2.25 uIU/mL (0.36-3.74); TROPONIN-I < 0.017 ng/mL (0.000-0.060)
[2019-06-07 02:22] VITALS: BP 148/79
== END 2019-06-07 02:20 | disposition other institution (70) ==
LOC: D.ER 00:29
PROVIDERS: Family Medicine
DX: R51 Headache (principal); W06.XXXA Fall from bed, initial encounter; Y93.9 Activity, unspecified; Y92.9 Unspecified place or not applicable; Z86.73 Personal history of transient ischemic attack (TIA), and cerebral infarction without residual deficits; I10 Essential (primary) hypertension